=== PATIENT | female | born 1940 | race Caucasian/White ===

== ENCOUNTER 2019-11-25 14:26 | Observation (INO) | payer MEDICARE, OTHER, SELFPAY ==
[2019-11-25] VITALS (8 sets, daily range): BP systolic 95–145; BP diastolic 60–115; PULSE 115–131; RESP 14–18; TEMP 36.6–37.1; O2SAT 96–98; BMI 31.7
--- NOTE | 2019-11-25 | CT_ITS ---
EXAMINATION: CT ANGIOGRAM CHEST WITH AND WITHOUT CONTRAST (CT PULMONARY ANGIOGRAM FOR PE) CLINICAL INFORMATION: Assess for PE. COMPARISON: By report, a previous study was performed 10/30/2019 with no evidence of pulmonary embolus. Those images are not available for comparison. TECHNIQUE: Prior to contrast administration, noncontrast localization images were obtained. Subsequently, multidetector volumetric imaging was performed from the thoracic inlet to below the diaphragms following the administration of 65 mL Omnipaque 350 intravenous contrast. No contrast reaction reported. Sagittal, coronal, and MIP oblique sagittal reformatted images were obtained on the CT workstation, uploaded to PACS, and reviewed. This CT examination was performed using dose optimization techniques as appropriate, variously including the following: *Automated exposure control. *Adjustment of mA and/or kV according to patient size (this includes techniques or standardized protocols for targeted exams where dose is matched to indication/reason for exam; i.e. extremities or head). *Use of iterative reconstruction technique. Total exam dose-length product 493 mGy-cm. 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 Rotation to the left. Arthritic changes around both shoulders. Some hazy density in the left lower chest. QUALITY OF STUDY/CONTRAST BOLUS: Satisfactory. PULMONARY ARTERIES: No pulmonary embolus demonstrated. THORACIC AORTA: There is no thoracic aortic aneurysm. There is atherosclerosis. There is moderate coronary artery calcification. There is no pericardial fluid or thickening. The main pulmonary artery is normal caliber. LUNG: No suspicious mass. There is motion artifact which limits fine detail. There are hazy and reticular juxtapleural opacities in the dependent aspect of each lung without definite honeycomb formation. PLEURA: There is some apical thickening which is likely post inflammatory. MEDIASTINUM: There are no enlarged mediastinal or hilar lymph nodes. No suspicious abnormality of the esophagus. No evidence of septal bowing or right heart strain. CHEST WALL/AXILLA: No axillary or internal mammary lymphadenopathy. OSSEOUS STRUCTURES: Severe arthritic changes involving the glenohumeral joints. Soft tissue calcifications or ossifications. Hemangioma in the lower thoracic spine on the right. UPPER ABDOMEN: Nonspecific low attenuating lesion in the left lobe of the liver measures 1.4 cm. The visualized portion of the right kidney is smaller than the left. This could represent atrophy. Calcification in the region of the left renal artery. Calcified splenic granulomata. There is some reflux into the IVC and central portion of the hepatic veins. IMPRESSION: No pulmonary embolus demonstrated. Nonspecific bilateral dependent lung density could represent some atelectasis or fibrosis. VTE: Negative.
--- NOTE | 2019-11-25 | XR_ITS ---
EXAMINATION: XR CHEST CLINICAL INFORMATION: Tachycardia. COMPARISON: CTA chest 10/30/2019 TECHNIQUE: Frontal view of the chest was obtained. FINDINGS: Cardiomediastinal silhouette is upper limits of normal in size. Blunting of the left costophrenic sulcus. No dense consolidation. No pneumothorax. Severe degenerative changes in both shoulders. IMPRESSION: Blunting left costophrenic sulcus could represent a layering effusion. A full inspiration PA and lateral chest radiograph may help to clarify
--- NOTE | 2019-11-25 14:49 | ED.ARRPALP ---
HPI - Arrhythmia/Palpitations General Chief Complaint: Arrhythmia/Palpitations Stated Complaint: SUDDEN ONSET FAST HEART RATE Time Seen by Provider: 11/25/19 14:38 Source: patient Mode of arrival: ambulatory Limitations: no limitations History of Present Illness HPI narrative: Related Data Allergies Allergy/AdvReac Type Severity Reaction Status Date / Time Cdqggou-Geq-Fhl Reductase Allergy Unknown PSEUDO Verified 11/25/19 14:50 Inhibitor ARHTITIS,ENZYMES [[id number] REDUCTASE INHIBITOR] ibuprofen [From ADVIL] AdvReac Unknown AGITATED Verified 11/25/19 14:50 statins Allergy Unknown elevated Uncoded 03/30/16 00:00 liver enzymes, joint aches Review of Systems Review of Systems: REVIEW OF SYSTEMS: Pertinent positives and negatives are stated above in the history. GEN: no fevers, chills, fatigue HEENT: no nasal congestion, sore throat, ear pain NEURO: no headache, dizziness, focal weakness PULM: no cough, shortness of breath CV: no chest pain, palpitations, LE edema ABD: no abdominal pain, nausea, vomiting, diarrhea : no dysuria, urgency, frequency SKIN: no rash ROS otherwise negative x 10 PMFSH Past Medical History Medical History Anemia Hyperlipidemia Hypertension Tachycardia Surgical History Hx of arthroscopic knee surgery Total knee replacement status Social History Social History Alcohol intake: never Smoking Status: Former smoker Use of substances other than those prescribed or required for medical reasons: No Advance Directives: No Advance Directives Information Provided: Yes Physical Exam Vital Signs and I&O and Narrative: Vital Signs and I&O: Vital Signs Temp 98.7 F 11/25/19 16:02 Pulse 119 H 11/25/19 16:02 Resp 15 11/25/19 16:02 BP 111/81 11/25/19 16:02 Pulse Ox 97 11/25/19 16:02 Intake & Output 11/24/19 11/25/19 11/25/19 18:59 06:59 18:59 Weight 86.581 kg Body Mass Index 31.7 VITAL SIGNS: Reviewed. GENERAL: Well developed, well nourished, in no acute distress. HEAD: Normocephalic/atraumatic, Posterior oropharynx was without edema, erythema or exudate. EYES: PERRLA, EOMI intact without pain, no nystagmus/pallor/icterus noted EARS: Ext canals without abnormality, TMs non-bulging and non-erythematous NOSE: Nares patent bilateral OROPHARYNX: no oral lesions noted, posterior pharynx clear and non-erythematous without noted tonsillar enlargement/erythema/exudates NECK: Supple, no adenopathy LUNGS: Normal breath sounds. No adventitious sounds or accessory muscle use. CARDIOVASCULAR: Regular rate tachycardia without noted murmurs, no JVD or lower extremity edema. ABDOMEN: Soft, non-tender, non-distended with bowel sounds. No rigidity. No guarding. No palpable masses or hernias noted MUSCULOSKELETAL: No tenderness, deformities, or effusions noted on gross inspection. EXTREMITIES: No cyanosis, clubbing or edema. SKIN: Inspection of the skin reveals no rashes, ulcerations, jaundice, pallor, or petechiae NEUROLOGIC: Alert and oriented x 3. Strength and sensation to light touch were grossly intact x 4. Course Course Course Narrative: patient received 5 mg of Lopressor and 1 L of IV fluids running heart rate is still 119 patient asymptomatic at this time will evaluate her labs. Patient signed out to Dr. Butts [facility] - Arrhythmia/Palpitations Lab Data Result diagrams: 11/25/19 15:55 Labs: Lab Results 11/25/19 Range/Units 15:55 WBC 3.2 L (4.8-10.8) X10*3/uL RBC 3.22 L (4.20-5.50) X10*6/uL Hgb 9.5 L (12.0-16.0) g/dl Hct 29.5 L (37-47) % MCV 91.6 (80-98) fL MCH 29.5 (27.0-33.0) pg MCHC 32.2 (31.0-35.0) g/dl RDW 14.3 (11.0-16.0) % Plt Count 167 (160-400) X10*3/uL MPV 9.5 (9.4-12.3) fL Immature Gran % (Auto) 0.0 (0.0-0.4) % Neut % (Auto) 57.1 (45-73) % Lymph % (Auto) 26.9 (20-40) % [place] % (Auto) 10.8 (2-11) % Eos % (Auto) 4.9 H (0-4) % Baso % (Auto) 0.3 (0-2) % Neut # (Auto) 1.9 L (2.0-8.3) X10*3/uL Lymph # (Auto) 0.9 L (1.2-4.9) X10*3/uL [place] # (Auto) 0.4 (0.1-1.2) X10*3/uL Eos # (Auto) 0.2 (0.0-0.4) X10*3/uL Baso # (Auto) 0.0 (0.0-0.2) X10*3/uL Abs Immat Gran (auto) 0.00 (0.00-0.03) X10*3/uL Absolute Nucleated RBC 0.000 (0.0-0.012) X10*3/uL Nucleated RBC % (auto) 0.0 (0.0-0.2) /100WBC ECG Data Attestation: I personally reviewed and interpreted this ECG as follows: ECG interpretation date: 11/25/19 ECG interpretation time: 14:32 Prior ECG tracings: available for review Ischemic changes: non-specific ST-T wave changes Interpretation: Heart rate 132 sinus tachycardia normal axis nonspecific ST T wave changes diagnosis supraventricular tachycardia
[2019-11-25] MEDS: Metoprolol Tartrate 5 MG/5 ML VIAL IVPUSH (14:51)
--- NOTE | 2019-11-25 15:23 | ECG_ITS ---
Test Reason : TACHYCARDIA Blood Pressure : / mmHG Vent. Rate : 132 BPM Atrial Rate : 122 BPM P-R Int : 000 ms QRS Dur : 074 ms QT Int : 314 ms P-R-T Axes : 000 -04 066 degrees QTc Int : 465 ms Supraventricular tachycardia Nonspecific ST and T wave abnormality Abnormal ECG When compared with ECG of 31-OCT-2019 07:40, Vent. rate has increased BY [address] now depressed in Inferior leads ST now depressed in Anterolateral leads Nonspecific T wave abnormality, worse in Inferior leads Nonspecific T wave abnormality now evident in Lateral leads Referred By: James Gold Electronically Signed By:TIFFANY MCCONNELL
[2019-11-25] MEDS: 0.9 % Sodium Chloride 1,000 ML 999 ML IVCONT ×2 (15:45→18:02)
[2019-11-25 16:01] LABS: MANUAL DIFF FLAG NO
[2019-11-25 16:02] LABS: Basophils Percent Auto 0.3 % (0-2); Eosinophils Absolute Auto 0.2 X10*3/uL (0.0-0.4); Eosinophils Percent Auto 4.9 % (0-4); Hematocrit 29.5 % (37-47); Hemoglobin 9.5 g/dl (12.0-16.0); Lymphocytes Absolute Auto 0.9 X10*3/uL (1.2-4.9); Lymphocytes Percent Auto 26.9 % (20-40); Mean Corpuscular HGB Conc 32.2 g/dl (31.0-35.0); Mean Corpuscular Hemoglobin 29.5 pg (27.0-33.0); Mean Corpuscular Volume 91.6 fL (80-98); Mean Platelet Volume 9.5 fL (9.4-12.3); Monocytes Absolute Auto 0.4 X10*3/uL (0.1-1.2); Monocytes Percent Auto 10.8 % (2-11); Neutrophils Absolute Auto 1.9 X10*3/uL (2.0-8.3); Neutrophils Percent Auto 57.1 % (45-73); Platelet Count 167 X10*3/uL (160-400); Red Blood Count 3.22 X10*6/uL (4.20-5.50); Red Cell Distribution Width 14.3 % (11.0-16.0); White Blood Count 3.2 X10*3/uL (4.8-10.8)
[2019-11-25 16:31] LABS: Anion Gap 13 (12-20); Blood Urea Nitrogen 9 mg/dL (9-16); Calcium 8.6 mg/dL (8.4-10.2); Carbon Dioxide 20 mmol/L (22-29); Chloride 108 mmol/L (96-108); Creatinine Clr Calc Pharmacy 75.2; Estimated Glomerular Filt Rate > 60; Glucose Random 101 mg/dL (60-115); Potassium 4.2 mmol/l (3.3-5.1); Sodium 137 mmol/L (135-145)
[2019-11-25 16:56] LABS: Thyroid Stimulating Hormone 0.67 mIU/mL (0.32-4.0)
[2019-11-25 18:31] LABS: Glucose Urine UA NEG (NEG); Leukocyte Esterase Urine 1+ (NEG); Nitrite Urine NEG (NEG); Specific Gravity - Urine <= 1.005 (1.005-1.025); Urine Blood TRACE (NEG); Urine Ketones NEG (NEG); Urine Protein NEG (NEG-TRACE)
[2019-11-25 18:33] LABS: Appearance Urine CLEAR; Color Urine YELLOW
[2019-11-25 18:43] LABS: Bacteria Urine TRACE /LPF; RBC Urine 0-2 /HPF (0); Squamous Epithelial Cell Urine 1+ /LPF
[2019-11-25 19:36] LABS: Hemoglobin 9.7 g/dl (12.0-16.0); Imm Gran Abs Auto 0.01 X10*3/uL (0.00-0.03); Imm Gran Pct Auto 0.3 % (0.0-0.4); MANUAL DIFF FLAG SCAN; PLT CLUMP 1; Red Cell Distribution Width 14.4 % (11.0-16.0); SCAN SMEAR FLAG 1
[2019-11-25 19:38] LABS: Basophils Percent Auto 0.6 % (0-2); Eosinophils Absolute Auto 0.2 X10*3/uL (0.0-0.4); Eosinophils Percent Auto 4.8 % (0-4); Hematocrit 29.4 % (37-47); Lymphocytes Absolute Auto 1.1 X10*3/uL (1.2-4.9); Lymphocytes Percent Auto 29.7 % (20-40); Mean Corpuscular Hemoglobin 30.3 pg (27.0-33.0); Mean Corpuscular Volume 91.9 fL (80-98); Mean Platelet Volume 9.9 fL (9.4-12.3); Monocytes Absolute Auto 0.3 X10*3/uL (0.1-1.2); Monocytes Percent Auto 9.2 % (2-11); Neutrophils Percent Auto 55.4 % (45-73); Platelet Count 174 X10*3/uL (160-400); White Blood Count 3.6 X10*3/uL (4.8-10.8)
[2019-11-25 19:43] LABS: OBS Int Ctl Valid YES; OBS1 NEG (NEG)
[2019-11-25 19:52] LABS: SLIDE REVIEW VERIFIED
[2019-11-25 19:56] LABS: D Dimer 460 NG/ML
[2019-11-25 19:57] LABS: Troponin-I High Sensitivity 60.2 ng/L (<3.5-17.0)
[2019-11-25] MEDS: iohexoL 350 MG/ML 100 ML INFUS..BTL IV (21:58)
[2019-11-26] VITALS (9 sets, daily range): BP systolic 94–117; BP diastolic 51–68; PULSE 50–119; RESP 12–18; TEMP 35.8–37.1; O2SAT 96–99
--- NOTE | 2019-11-26 00:22 | P.HPIM_ITS ---
History of Present Illness Date of Service: 11/26/19 Chief Complaint: tachycardia 79 y/o female with known PMHx of sinus tachycardia and NSTEMI due to demand ischemia in the past who presented from home due to tachycardia. Per history provided by the patient, this afternoon started feeling like her heart was raci ng and has been ongoing since then, denies any chest pain, SOB, nausea or vomiting. Last admission was 1 month ago where patient was treated for sinus tachycardia, Hypotension likely due to dehydration and UTI. Patient had extensive cardiac work up which was negative and was discharged per cardio recommendations on atenolol 25 mg BID. On presentation to the ED EKG shows sinus tachycardia, vitals shows a HR of 120's, BP borderline in the low range. Patient was treated by ED with cardizem and IV lopressor with no improvement on HR. Hgb of 9.7. Troponin of 60.2 which is lower than on previous admission. Patient was seen and evaluated at the bedside, laying down in bed in no acute distress. ROS as above otherwise negative. Physical exam positive for tachycardiac otherwise negative. Past Medical History: Past medical history Hypertension Dyslipidemia Tachycardia Denies history of AFib or CAD Past surgical history Tonsillectomy Left knee replacement Left knee arthroscopic Social history Lives alone. Reports she stop smoking ?many years ago.? Reports social alcohol use which he stopped about 1.5 years ago. No illicit substance. Review of Systems Cardiovascular: Cardiovascular: Reports rapid heart rate [facility] Medical History Anemia Hyperlipidemia Hypertension Tachycardia Functional capacity: independent ambulation Family history: reviewed and not pertinent Surgical History Hx of arthroscopic knee surgery Total knee replacement status Social History Alcohol intake: never Smoking Status: Former smoker Use of substances other than those prescribed or required for medical reasons: No Advance Directives: No Advance Directives Information Provided: Yes Meds Allergies Allergy/AdvReac Type Severity Reaction Status Date / Time Bhufzef-Err-Yav Reductase Allergy Unknown PSEUDO Verified 11/25/19 14:50 Inhibitor ARHTITIS,ENZYMES [[id number] REDUCTASE INHIBITOR] ibuprofen [From ADVIL] AdvReac Unknown AGITATED Verified 11/25/19 14:50 statins Allergy Unknown elevated Uncoded 03/30/16 00:00 liver enzymes, joint aches Home Medications Medication Instructions Recorded Confirmed Type alendronate 1 tab PO QWEEK 11/25/19 11/25/19 History atenolol 1 tab PO BID 11/25/19 11/25/19 History ezetimibe 1 tab PO DAILY 11/25/19 11/25/19 History fluticasone propionate 2 spray INTRANASAL DAILY 11/25/19 11/25/19 History gemfibrozil 1 tab PO BID 11/25/19 11/25/19 History oxybutynin chloride 10 mg PO DAILY 11/25/19 11/25/19 History Physical Exam Vital Signs and Narrative: Vital Signs: Last Vital Signs Temp 98.1 F 11/25/19 22:00 Pulse 121 H 11/25/19 22:00 Resp 17 11/25/19 22:00 BP 101/71 11/25/19 22:00 Pulse Ox 97 11/25/19 22:00 Body Mass Index 31.7 Const: General: cooperative, healthy appearing and comfortable Orientation/consciousness: patient oriented x3 HENMT: Head: Yes normal to inspection and Yes No palpable skull fracture present Eyes: General: appearance normal, both eyes and all related structures Neck: Yes normal visual inspection Chest: Chest palpation & inspection: normal inspection of the chest Resp: Effort & Inspection: normal respiratory effort Cardio: Jugular venous distension: no JVD Rate: regular rate Rhythm: regular rhythm Heart sounds: S1 normal heart sound present and S2 normal heart sound present GI: Inspection: Yes normal to inspection Skin: General skin exam: no rashes or lesions noted Neuro: General: patient oriented x3 Results Labs Labs: Laboratory Tests 11/25/19 11/25/19 11/25/19 15:55 15:55 18:11 WBC 3.2 L RBC 3.22 L Hgb 9.5 L Hct 29.5 L MCV 91.6 MCH 29.5 MCHC 32.2 RDW 14.3 Plt Count 167 MPV 9.5 Immature Gran % (Auto) 0.0 Neut % (Auto) 57.1 Lymph % (Auto) 26.9 [place] % (Auto) 10.8 Eos % (Auto) 4.9 H Baso % (Auto) 0.3 Neut # (Auto) 1.9 L Lymph # (Auto) 0.9 L [place] # (Auto) 0.4 Eos # (Auto) 0.2 Baso # (Auto) 0.0 Abs Immat Gran (auto) 0.00 Absolute Nucleated RBC 0.000 Nucleated RBC % (auto) 0.0 Smear Tech's Comments D-Dimer Sodium 137 Potassium 4.2 Chloride 108 Carbon Dioxide 20 L Anion Gap 13 BUN 9 Creatinine 0.68 Estim Creat Clear Calc 75.2 Estimated GFR > 60 Random Glucose 101 Calcium 8.6 Troponin I High Sens TSH 0.67 Urine Color YELLOW Urine Appearance CLEAR Urine pH 7.0 Ur Specific [place] <= 1.005 Urine Protein NEG Urine Glucose (UA) NEG Urine Ketones NEG Urine Blood TRACE Urine Nitrite NEG Ur Leukocyte Esterase 1+ H Urine RBC 0-2 Urine WBC 5-9 H Ur Squamous Epith Cells 1+ Urine Bacteria TRACE Stool Occult Blood 11/25/19 11/25/19 11/25/19 19:18 19:18 19:18 WBC RBC Hgb Hct MCV MCH MCHC RDW Plt Count MPV Immature Gran % (Auto) Neut % (Auto) Lymph % (Auto) [place] % (Auto) Eos % (Auto) Baso % (Auto) Neut # (Auto) Lymph # (Auto) [place] # (Auto) Eos # (Auto) Baso # (Auto) Abs Immat Gran (auto) Absolute Nucleated RBC Nucleated RBC % (auto) Smear Tech's Comments D-Dimer 460 Sodium Potassium Chloride Carbon Dioxide Anion Gap BUN Creatinine Estim Creat Clear Calc Estimated GFR Random Glucose Calcium Troponin I High Sens 60.2 H TSH Urine Color Urine Appearance Urine pH Ur Specific [place] Urine Protein Urine Glucose (UA) Urine Ketones Urine Blood Urine Nitrite Ur Leukocyte Esterase Urine RBC Urine WBC Ur Squamous Epith Cells Urine Bacteria Stool Occult Blood NEG 11/25/19 19:18 WBC 3.6 L RBC 3.20 L Hgb 9.7 L Hct 29.4 L MCV 91.9 MCH 30.3 MCHC 33.0 RDW 14.4 Plt Count 174 MPV 9.9 Immature Gran % (Auto) 0.3 Neut % (Auto) 55.4 Lymph % (Auto) 29.7 [place] % (Auto) 9.2 Eos % (Auto) 4.8 H Baso % (Auto) 0.6 Neut # (Auto) 2.0 Lymph # (Auto) 1.1 L [place] # (Auto) 0.3 Eos # (Auto) 0.2 Baso # (Auto) 0.0 Abs Immat Gran (auto) 0.01 Absolute Nucleated RBC 0.000 Nucleated RBC % (auto) 0.0 Smear Tech's Comments VERIFIED D-Dimer Sodium Potassium Chloride Carbon Dioxide Anion Gap BUN Creatinine Estim Creat Clear Calc Estimated GFR Random Glucose Calcium Troponin I High Sens TSH Urine Color Urine Appearance Urine pH Ur Specific [place] Urine Protein Urine Glucose (UA) Urine Ketones Urine Blood Urine Nitrite Ur Leukocyte Esterase Urine RBC Urine WBC Ur Squamous Epith Cells Urine Bacteria Stool Occult Blood Assessment and Plan (1) Sinus tachycardia: Status: Acute HR now in 120's. 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
--- NOTE | 2019-11-26 00:23 | PC.NURSE ---
Called [facility] for report to be given. Awaiting for call back for the report.
[2019-11-26] MEDS: Metoprolol Tartrate 5 MG/5 ML VIAL 2.5 MG IVPUSH (00:35)
--- NOTE | 2019-11-26 00:51 | PC.NURSE ---
Report given to [facility], RN. Pt is ready for transfer.
[2019-11-26] MEDS: Flu Vacc QS2020-21(6mos up)/PF 0.5 ML SYRINGE IM (04:30)
[2019-11-26] MEDS: Enoxaparin Sodium 40 MG/0.4 ML SYRINGE SUBCUT (04:30)
--- NOTE | 2019-11-26 06:52 | PM.EVENT ---
Event Note Event Note: Given the fact that HR normalized which now is 57, atenolol dose decreased back to 25 mg BID. Follow up Cardio recs
[2019-11-26] MEDS: gemfibroziL 600 MG TABLET PO (08:41)
[2019-11-26] MEDS: 0.9 % Sodium Chloride Flush 3 ML SYRINGE 2 ML IVFLUSH (08:41)
[2019-11-26] MEDS: Ezetimibe 10 MG TABLET PO (08:41)
--- NOTE | 2019-11-26 09:35 | MHC.CM.PN ---
IMM 11/26/19 FEMALE 79 DX Tachycardia. Pt lives alone with assist from family. Recent admit for this diagnosis. Pt had LTKA 10/02/19. She was going to out Pt therapy. DP resume out Pt Therapy family will transport. CM will follow for change in DP needs.
--- NOTE | 2019-11-26 10:09 | P.CONCA_ITS ---
History of Present Illness History of Present Illness Date of Consult: November 26, 2019 Requesting physician: Ariella Shelby Chief complaint: SUDDEN ONSET FAST HEART RATE Narrative: This is a cardiology consultation regarding tachycardia. Patient states that she was doing some shopping all of a sudden, she started feeling as though her heart was racing. She has had palpitations for more than 10 years. She was apparently told to have a paroxysmal tachycardia about a decade ago. Subsequently, intermittent episodes but in the last few weeks she has had more than the usual frequency and intensity. Few weeks ago, it appears that she was admitted for similar reasons. This time, she was shopping and then again noticed palpitations which would not go way which led to ER presentation. She apparently got some Cardizem and Lopressor but then things resolved, but she was admitted for further care. Otherwise, she does not have any anginal-type symptoms or shortness of breath or any other cardiac complaints at this time. No prior history of any coronary disease or myocardial infarction. No history of any cardiomyopathy or any other cardiac concerns apart from the paroxysmal tachycardia she was told about. Review of Systems Review of Systems: Yes all other systems are reviewed and are negative Cardiovascular: Cardiovascular: Reports palpitations Endocrine: Endocrine: Reports palpitations PMFSH Past Medical History Medical History Anemia Hyperlipidemia Hypertension Tachycardia Functional capacity: independent ambulation Family History Family History (Updated 11/26/19 @ 10:15 by Wai Purcell MD) Other CAD (coronary artery disease) Family history: reviewed and not pertinent Surgical History Surgical History Hx of arthroscopic knee surgery Total knee replacement status Social History Social History Alcohol intake: never Smoking Status: Former smoker Smoked in Last 30 Days: No Patient Interested in Nicotine Replacement: No Use of substances other than those prescribed or required for medical reasons: No Advance Directives: No Advance Directives Information Provided: Yes service: No Current occupational status: retired Meds Allergies Allergy/AdvReac Type Severity Reaction Status Date / Time Cyzvpvb-Vef-Cka Reductase Allergy Unknown PSEUDO Verified 11/25/19 14:50 Inhibitor ARHTITIS,ENZYMES [JBPTGVG-ORD-CJA REDUCTASE INHIBITOR] ibuprofen [From ADVIL] AdvReac Unknown AGITATED Verified 11/25/19 14:50 statins Allergy Unknown elevated Uncoded 03/30/16 00:00 liver enzymes, joint aches Home Medications Medication Instructions Recorded Confirmed Type alendronate 1 tab PO QWEEK 11/25/19 11/25/19 History atenolol 1 tab PO BID 11/25/19 11/25/19 History ezetimibe 1 tab PO DAILY 11/25/19 11/25/19 History fluticasone propionate 2 spray INTRANASAL DAILY 11/25/19 11/25/19 History gemfibrozil 1 tab PO BID 11/25/19 11/25/19 History oxybutynin chloride 10 mg PO DAILY 11/25/19 11/25/19 History Physical Exam Vital Signs and I&O and Narrative: Vital Signs and I&O: Vital Signs Temp 98.0 F 11/26/19 07:47 Pulse 51 11/26/19 08:42 Resp 16 11/26/19 07:47 BP 94/58 L 11/26/19 08:42 Pulse Ox 97 11/26/19 07:47 Intake & Output 11/25/19 11/26/19 11/26/19 18:59 06:59 18:59 Intake Total 999 Balance 999 Weight 190 lb 14.052 oz Intake: Intake, IV Amoun t 999 0.9 % Sodium C hloride 1,000 ml 999 @ 999 mls/hr I VCONT .Q1H1M PENDING S[facility] TO [facility] Rx#:[id number] Other: Number of Unmeas ured Voids 1 Urine Bathroom Urine Color Pale Yellow Body Mass Index 31.7 Const: General: cooperative, comfortable and no acute distress Orientation/consciousness: patient oriented x3 HENMT: Other: Unremarkable Neck: Neck: Yes normal visual inspection Chest: Chest palpation & inspection: normal inspection of the chest Resp: Auscultation: clear to auscultation bilaterally, no crackles and no wheezes Cardio: Jugular venous distension: no JVD Palpation: normal PMI Heart sounds: S1 normal heart sound present, S2 normal heart sound present, no gallops, no murmurs and no rubs GI: Palpation (GI): Soft to palpation Back/Spine/Pelvis: Other: unremarkable Skin: General skin exam: no rashes or lesions noted Neuro: General: patient oriented x3 Extrem: General: Yes no clubbing, cyanosis or edema Psych: Mental Status: mental status grossly normal Results Labs and Meds Result diagrams: 11/25/19 19:18 11/25/19 15:55 Lab results: Laboratory Results - last 24 hr 11/25/19 11/25/19 11/25/19 15:55 15:55 18:11 WBC 3.2 L RBC 3.22 L Hgb 9.5 L Hct 29.5 L MCV 91.6 MCH 29.5 MCHC 32.2 RDW 14.3 Plt Count 167 MPV 9.5 Immature Gran % (Auto) 0.0 Neut % (Auto) 57.1 Lymph % (Auto) 26.9 [place] % (Auto) 10.8 Eos % (Auto) 4.9 H Baso % (Auto) 0.3 Neut # (Auto) 1.9 L Lymph # (Auto) 0.9 L [place] # (Auto) 0.4 Eos # (Auto) 0.2 Baso # (Auto) 0.0 Abs Immat Gran (auto) 0.00 Absolute Nucleated RBC 0.000 Nucleated RBC % (auto) 0.0 Smear Tech's Comments D-Dimer Sodium 137 Potassium 4.2 Chloride 108 Carbon Dioxide 20 L Anion Gap 13 BUN 9 Creatinine 0.68 Estim Creat Clear Calc 75.2 Estimated GFR > 60 Random Glucose 101 Calcium 8.6 Troponin I High Sens TSH 0.67 Urine Color YELLOW Urine Appearance CLEAR Urine pH 7.0 Ur Specific [place] <= 1.005 Urine Protein NEG Urine Glucose (UA) NEG Urine Ketones NEG Urine Blood TRACE Urine Nitrite NEG Ur Leukocyte Esterase 1+ H Urine RBC 0-2 Urine WBC 5-9 H Ur Squamous Epith Cells 1+ Urine Bacteria TRACE Stool Occult Blood 11/25/19 11/25/19 11/25/19 19:18 19:18 19:18 WBC RBC Hgb Hct MCV MCH MCHC RDW Plt Count MPV Immature Gran % (Auto) Neut % (Auto) Lymph % (Auto) [place] % (Auto) Eos % (Auto) Baso % (Auto) Neut # (Auto) Lymph # (Auto) [place] # (Auto) Eos # (Auto) Baso # (Auto) Abs Immat Gran (auto) Absolute Nucleated RBC Nucleated RBC % (auto) Smear Tech's Comments D-Dimer 460 Sodium Potassium Chloride Carbon Dioxide Anion Gap BUN Creatinine Estim Creat Clear Calc Estimated GFR Random Glucose Calcium Troponin I High Sens 60.2 H TSH Urine Color Urine Appearance Urine pH Ur Specific [place] Urine Protein Urine Glucose (UA) Urine Ketones Urine Blood Urine Nitrite Ur Leukocyte Esterase Urine RBC Urine WBC Ur Squamous Epith Cells Urine Bacteria Stool Occult Blood NEG 11/25/19 19:18 WBC 3.6 L RBC 3.20 L Hgb 9.7 L Hct 29.4 L MCV 91.9 MCH 30.3 MCHC 33.0 RDW 14.4 Plt Count 174 MPV 9.9 Immature Gran % (Auto) 0.3 Neut % (Auto) 55.4 Lymph % (Auto) 29.7 [place] % (Auto) 9.2 Eos % (Auto) 4.8 H Baso % (Auto) 0.6 Neut # (Auto) 2.0 Lymph # (Auto) 1.1 L [place] # (Auto) 0.3 Eos # (Auto) 0.2 Baso # (Auto) 0.0 Abs Immat Gran (auto) 0.01 Absolute Nucleated RBC 0.000 Nucleated RBC % (auto) 0.0 Smear Tech's Comments VERIFIED D-Dimer Sodium Potassium Chloride Carbon Dioxide Anion Gap BUN Creatinine Estim Creat Clear Calc Estimated GFR Random Glucose Calcium Troponin I High Sens TSH Urine Color Urine Appearance Urine pH Ur Specific [place] Urine Protein Urine Glucose (UA) Urine Ketones Urine Blood Urine Nitrite Ur Leukocyte Esterase Urine RBC Urine WBC Ur Squamous Epith Cells Urine Bacteria Stool Occult Blood Cardiology Testing Echo: report reviewed EKG Interpretation Telemetry: sinus rhythm EKG Comments: EKG was reviewed by me. This shows a narrow complex tachycardia at 132/Min. There are retrograde P waves which are suggestive of a supraventricular tachycardia. Assessment and Plan (1) SVT (supraventricular tachycardia): Status: Acute (2) Heart palpitations: Status: Acute (3) NSTEMI (non-ST elevated myocardial infarction): Status: Acute (4) Hypertension: Status: Acute EKG suggestive of narrow complex tachycardia/ SVT. Currently, she is in sinus bradycardia. Continue beta-blockers. Due to low blood pressure as well a s resting sinus bradycardia, no room to increase her medications. Will check with Electrophysiology regarding candidacy for ablation. Otherwise, troponins are elevated due to the tachycardia and I do not believe that this is a true NSTEMI. Very likely to be demand related / type 2 NSTEMI. She will need a stress test that can be performed as an outpatient. Will follow up with you.
[2019-11-26] MEDS: Fluticasone Propionate Nasal 16 GM SPRAY 2 SPRAY NOSTRIL-B (11:17)
--- NOTE | 2019-11-26 13:29 | MHC.CM.PN ---
DC home today. No services, family providing transport
--- NOTE | 2019-11-26 17:04 | P.DS_ITS ---
DS: Providers Provider Date of admission: 11/26/19 00:55 Primary care physician: Royer Botello MD Consults: 11/26/19 00:35 Consult to Cardiology [place]ine [place] [facility] [place] [facility] Reason for consultation: sinus tachycardia Has provider been notified: No DS: Diagnosis Discharge Diagnosis (1) SVT (supraventricular tachycardia): Status: Acute (2) Heart palpitations: Status: Acute (3) NSTEMI (non-ST elevated myocardial infarction): Status: Acute (4) Hypertension: Status: Acute DS: Summary Time Spent with Patient Time attestation: the patient was admitted to the hospital for evaluation of episode of palpitation. EKG reviewed by associate financial representative who believe she has another episode of narrow complex tachycardia,SVT. Palpitation resolved with her oral home medications. Blood pressure was noticed to be solved so we could not increase the dose at this point and kept on atenolol 25 mg twice daily. Elevated cardiac enzymes as a result of tachycardia as type 2 NSTEMI. To continue her home medications and to follow-up as outpatient with from and to arrange for outpatient stress test with Cardiology. Total time spent providing and/or coordinating discharge services: Physical Exam Vital Signs and I&O and Narrative: Vital Signs and I&O: Vital Signs Temp 98.0 F 11/26/19 15:35 Pulse 57 11/26/19 15:35 Resp 18 11/26/19 15:35 BP 117/60 11/26/19 15:35 Pulse Ox 99 11/26/19 15:35 Intake & Output 11/25/19 11/26/19 11/26/19 18:59 06:59 18:59 Intake Total 999 Output Total 400 / 400 Balance 999 -400 / -400 Urine Output (Aver age ml/kg/hr) 0.38 Weight 86.581 kg Intake: Intake, IV Amoun t 999 0.9 % Sodium C hloride 1,000 ml 999 @ 999 mls/hr I VCONT .Q1H1M [facility] Rx#:[id number] Output: Output, Urine Am ount 400 / 400 Other: Lunch % Eaten 75% Number of Unmeas ured Voids 1 Urine Bathroom Urine Color Pale Yellow Body Mass Index 31.7 Const: General: cooperative and comfortable Orientation/consciousness: oriented to person and oriented to place Neck: Neck: Yes normal visual inspection and Yes full ROM Cardio: Jugular venous distension: no JVD Heart sounds: S1 normal heart sound present and S2 normal heart sound present GI: Inspection: Yes normal to inspection Percussion: Yes normal to percussion Auscultation: normal bowel sounds Neuro: General: oriented to person, oriented to place and no focal motor deficits Extrem: General: Yes normal to inspection and Yes full ROM DS: Data Data Completed and Pending Labs on day of discharge: Labs from last 24 hours 11/25/19 11/25/19 11/25/19 19:18 19:18 19:18 WBC 3.6 L RBC 3.20 L Hgb 9.7 L Hct 29.4 L MCV 91.9 MCH 30.3 MCHC 33.0 RDW 14.4 Plt Count 174 MPV 9.9 Immature Gran % (Auto) 0.3 Neut % (Auto) 55.4 Lymph % (Auto) 29.7 [place] % (Auto) 9.2 Eos % (Auto) 4.8 H Baso % (Auto) 0.6 Neut # (Auto) 2.0 Lymph # (Auto) 1.1 L [place] # (Auto) 0.3 Eos # (Auto) 0.2 Baso # (Auto) 0.0 Abs Immat Gran (auto) 0.01 Absolute Nucleated RBC 0.000 Nucleated RBC % (auto) 0.0 Smear Tech's Comments VERIFIED D-Dimer Troponin I High Sens 60.2 H Urine Color Urine Appearance Urine pH Ur Specific [place] Urine Protein Urine Glucose (UA) Urine Ketones Urine Blood Urine Nitrite Ur Leukocyte Esterase Urine RBC Urine WBC Ur Squamous Epith Cells Urine Bacteria Stool Occult Blood NEG 11/25/19 11/25/19 19:18 18:11 WBC RBC Hgb Hct MCV MCH MCHC RDW Plt Count MPV Immature Gran % (Auto) Neut % (Auto) Lymph % (Auto) [place] % (Auto) Eos % (Auto) Baso % (Auto) Neut # (Auto) Lymph # (Auto) [place] # (Auto) Eos # (Auto) Baso # (Auto) Abs Immat Gran (auto) Absolute Nucleated RBC Nucleated RBC % (auto) Smear Tech's Comments D-Dimer 460 Troponin I High Sens Urine Color YELLOW Urine Appearance CLEAR Urine pH 7.0 Ur Specific [place] <= 1.005 Urine Protein NEG Urine Glucose (UA) NEG Urine Ketones NEG Urine Blood TRACE Urine Nitrite NEG Ur Leukocyte Esterase 1+ H Urine RBC 0-2 Urine WBC 5-9 H Ur Squamous Epith Cells 1+ Urine Bacteria TRACE Stool Occult Blood Preliminary micro results at discharge 11/25/19 18:34 Urine Culture - Preliminary Urine clean catch - Clean Catch Midstream No growth to date. Discharge Plan Discharge Anticipated Discharge Date/Time: 11/26/19 13:08 Patient Disposition: Home, Self-Care Referrals: Royer Botello MD [Primary Care Provider] - Discharge Medications: Continued alendronate 70 mg tablet 1 tab PO QWEEK RF: 0 atenolol 25 mg tablet 1 tab PO BID RF: 0 gemfibrozil 600 mg tablet 1 tab PO BID RF: 0 fluticasone propionate 50 mcg/actuation spray,suspension 2 spray intranasal DAILY RF: 0 ezetimibe 10 mg tablet 1 tab PO DAILY RF: 0 oxybutynin chloride 10 mg Tablet Extended Release 24hr 10 mg PO DAILY RF: 0 Discharge Orders: Discharge Order (Routine); Ordered 11/26/19 Ordered By: Sarath Rodriguez Diet: advance to your usual diet and low salt diet Activity on Discharge: As tolerated Visit Report Forms: Patient Portal Discharge page Care Plan Goals: Read below Health Concerns: Read below Plan of Treatment: you were admitted to the hospital for evaluation of palpitation of the heart. Found to what we call SVT supraventricular tachycardia . Evaluated by Cardiology who recommended to continue your current home medication and to follow-up outpatient with cardio hard metals hand engraver
== END 2019-11-26 17:00 | disposition home or self-care (01) ==
LOC: HO.ED 11-26 01:06 → HO.IMC 11-26 05:28
PROVIDERS: Internal Medicine; Admitting Provider Internal Medicine; Emergency Provider Emergency Medicine; PCP Internal Medicine; Visit Provider Student in an Organized Health Care Education/Training Program
DX: I47.1 Supraventricular tachycardia (principal); R00.2 Palpitations; I21.4 Non-ST elevation (NSTEMI) myocardial infarction; D64.9 Anemia, unspecified; I10 Essential (primary) hypertension; M81.0 Age-related osteoporosis without current pathological fracture; R32 Unspecified urinary incontinence; Z96.652 Presence of left artificial knee joint; Z87.891 Personal history of nicotine dependence; Z79.899 Other long term (current) drug therapy; Z23 Encounter for immunization
CPT/HCPCS: 36415; 71045; 71275; 80048; 81001; 82272; 84443; 84484; 85025; 85379; 87086; 90471; 90686; 93005; 93010; 96361; 96372; 96374; 96375; 99219; 99285; J1650

== ENCOUNTER → 2019-12-03 07:53 | Outpatient (REF) | payer MEDICARE, OTHER, SELFPAY ==
--- NOTE | 2019-12-03 | NM_ITS ---
Lexiscan Myocardial perfusion study Indication: Supraventricular tachycardia, assess for coronary artery disease and ischemia Technique: The patient was brought in for a Lexiscan perfusion study on 12/03/2019 and was injected 0.4 mg of Lexiscan intravenously. Within a minute of this injection 30 mCi of sestamibi was given intravenously. Images were obtained using the SPECT gamma camera interlaced with the gating device. Images were obtained in supine position. Resting perfusion study was performed on 12/04/2019. Patient was administered 30 mCi of sestamibi intravenously at rest. Images were then obtained in supine position. Total DLP 118mGy-cm. Images were processed with the software and compared side to side in short axis, horizontal long axis and vertical long axis views. Findings: Raw acquisition was reviewed. The stress perfusion study showed diminished tracer uptake along the distal part of inferior and inferolateral wall. However with CT attenuation correction, this resolves completely suggestive of diaphragmatic attenuation artifact. The gated study shows normal LV systolic function with calculated LVEF of > 70%. LV cavity is normal in size. The gated study shows normal wall thickening and contraction of segments. Resting study shows mildly decreased tracer uptake along the distal part of the inferolateral wall, but that seems to resolve completely with CT attenuation correction suggesting attenuation artifact. Gating at rest reveals normal wall motion with ejection fraction at 75%. The findings are consistent with inferolateral defect with reversible and fixed components but resolving completely with CT attenuation correction suggesting definite attenuation artifact. Impression: 1. Myocardial perfusion imaging study shows no clear evidence of any ischemia or infarction. Inferolateral defect with fixed and reversible components suspected to be from diaphragmatic artifact, based on resolution with CT attenuation correction. 2. Gated LVEF is > 70%. 3. Transient ischemic dilatation not present. EKG component of the test reported separately.
--- NOTE | 2019-12-03 08:00 | CA_ITS ---
Acquisition Time: 2019-12-03 08:01:13 Total Exercise Time: 00:02:00 Test Indications: Palpitations Medications: ATENOLOL SEE H Protocol: LEXISCAN Max HR: 093 BPM 65% of Pred: 143 BPM Max BP: 122/070 mmHG Max Work Load: 1.0 METS Pharmacological stress test using Lexiscan while sitting and kicking her legs. Tolerated well, Denies any anginal sx. EKG without any arrhythmias, Non-diagnostic for ischemia. Nuclear images to follow. Normotensive response to test. Test reviewed with Dr. Purcell Referred By: Peter Lewis Overread By: James Pena
== END ==
LOC: HO.CARD 07:53
PROVIDERS: PCP Internal Medicine; Visit Provider Internal Medicine Cardiovascular Disease
DX: I47.1 Supraventricular tachycardia (principal); I10 Essential (primary) hypertension; E78.5 Hyperlipidemia, unspecified; I25.2 Old myocardial infarction; Z79.899 Other long term (current) drug therapy
CPT/HCPCS: 78452; 93017; A9500; J0280; J2785

== ENCOUNTER → 2019-12-06 14:03 | Outpatient (BNVA) | payer MEDICARE, OTHER, SELFPAY | PROVIDERS: PCP Internal Medicine; Referring Provider Internal Medicine; Visit Provider Nurse Practitioner Family | DX: I47.1 Supraventricular tachycardia (principal); I10 Essential (primary) hypertension; Z79.899 Other long term (current) drug therapy; I25.2 Old myocardial infarction | CPT/HCPCS: 99214 ==

== ENCOUNTER 2019-12-13 01:57 | Inpatient (IN) | payer MEDICARE, OTHER, SELFPAY ==
[2019-12-13] VITALS (10 sets, daily range): BP systolic 105–150; BP diastolic 6–100; PULSE 48–127; RESP 16–20; TEMP 36.4–36.9; O2SAT 96–98; BMI 30.4
--- NOTE | 2019-12-13 02:03 | ECG_ITS ---
Test Reason : TACHYCARDIA Blood Pressure : / mmHG Vent. Rate : 128 BPM Atrial Rate : 037 BPM P-R Int : 000 ms QRS Dur : 122 ms QT Int : 310 ms P-R-T Axes : 000 -07 061 degrees QTc Int : 452 ms Possible Supraventricular tachycardia Possible aflutter RSR' or QR pattern in V1 suggests right ventricular conduction delay Nonspecific ST abnormality Abnormal ECG When compared with ECG of 25-NOV-2019 14:32, No significant changes seen Referred By: Jann Aranda Electronically Signed By:ORALIA BOYLE MD
--- NOTE | 2019-12-13 02:09 | ED.ARRPALP ---
HPI - Arrhythmia/Palpitations General Chief Complaint: Arrhythmia/Palpitations Stated Complaint: TACHYCARDIA Time Seen by Provider: 12/13/19 02:09 Source: patient Mode of arrival: ambulatory Limitations: no limitations History of Present Illness HPI narrative: This is a 79-year-old female with known history of SVT, NSTEMI, who presents with awakening with a sensation that she has tachycardia and checked her heart rate and found it to be in the 130s. This is happened 2 other times and patient has undergone a stress test and is scheduled to have an ablation on 12/24/2019. This tachycardia is not associated with any headache, dizziness, shortness of breath, chest pain, fevers, chills, GI symptoms, or symptoms. Related Data Home Medications Medication Instructions Recorded Confirmed alendronate 70 mg PO QWEEK 11/25/19 12/13/19 atenolol 25 mg PO BID 11/25/19 12/06/19 ezetimibe 10 mg PO DAILY 11/25/19 12/06/19 fluticasone propionate 2 spray INTRANASAL DAILY 11/25/19 12/06/19 gemfibrozil 600 mg PO BID 11/25/19 12/06/19 oxybutynin chloride 10 mg PO DAILY 11/25/19 12/06/19 aspirin 81 mg tablet,delayed 81 mg PO DAILY 12/06/19 12/06/19 release hydrocodone-acetaminophen 1 tab PO Q4H PRN 12/13/19 12/13/19 Allergies Allergy/AdvReac Type Severity Reaction Status Date / Time Bndjpvh-Brt-Jpw Reductase Allergy Unknown PSEUDO Verified 11/25/19 14:50 Inhibitor ARHTITIS,ENZYMES [BRAVPEH-VQY-RSW REDUCTASE INHIBITOR] ibuprofen [From ADVIL] AdvReac Unknown AGITATED Verified 11/25/19 14:50 Review of Systems Review of Systems: Pertinent positives and negatives as stated in HPI 10 point review of systems is otherwise negative. [facility] Past Medical History Source: nursing notes reviewed Medical History (Updated 12/13/19 @ 04:53 by Ariella Shelby MD) Anemia Heart palpitations Hyperlipidemia Hypertension NSTEMI (non-ST elevated myocardial infarction) Osteoporosis Sinus tachycardia SVT (supraventricular tachycardia) Tachycardia Urinary incontinence Surgical History Hx of arthroscopic knee surgery Total knee replacement status Family History Family History Other CAD (coronary artery disease) Social History Social History Alcohol intake: never Smoking Status: Never smoker Use of substances other than those prescribed or required for medical reasons: No Any prior treatment program specific to substance use: Yes Advance Directives: No service: No Current occupational status: retired Physical Exam Vital Signs: Vital Signs: Vital Signs Temp Pulse Resp BP Pulse Ox 12/13/19 04:00 63 20 116/64 12/13/19 02:35 123 H 16 112/83 97 12/13/19 02:29 126 H 124/97 H 12/13/19 02:10 98.4 F 127 H 16 148/100 H 96 Body Mass Index 30.4 VITAL SIGNS: Reviewed. GENERAL: Well developed, well nourished, in no acute distress. HEAD: Normocephalic/atraumatic, EYES: PERRLA, EOMI intact without pain, no nystagmus/pallor/icterus noted EARS: Ext canals without abnormality, TMs non-bulging and non-erythematous NOSE: Nares patent bilateral OROPHARYNX: no oral lesions noted, posterior pharynx clear and non-erythematous without noted tonsillar enlargement/erythema/exudates NECK: Supple, no adenopathy LUNGS: Normal breath sounds. No adventitious sounds or accessory muscle use. SpO2<96> CARDIOVASCULAR: Regular rate and rhythm , tachycardia, without noted murmurs, no JVD or lower extremity edema. ABDOMEN: Soft, non-tender, non-distended with bowel sounds. No rigidity. No guarding. No palpable masses or hernias noted MUSCULOSKELETAL: No tenderness, deformities, or effusions noted on gross inspection. EXTREMITIES: No cyanosis, clubbing or edema. SKIN: Inspection of the skin reveals no rashes, ulcerations, jaundice, pallor, or petechiae. NEUROLOGIC: Alert and oriented x 4. Strength and sensation to light touch were grossly intact x 4. Course Course Course Narrative: This is a 79-year-old female with history and clinical presentation of recurrent SVT and on review of prior records Lopressor had been used but when discussing with the patient see said it was unsuccessful and she ended up being admitted. Despite this discussion we will attempt initial Lopressor 5 mg as well as lab work and chest x-ray. On re-evaluation after 5 mg of Lopressor patient's blood pressure was noted to have softened up considerably without any appreciable change in heart rate. This case was discussed with Cardiology, Dr. Montejo, who recommends possible adenosine or amiodarone for rate control. On review of all investigations it is noted that patient's leukocytes have continue to trend down words but she has stable, chronic anemia. Chemistries are largely within normal limits and the noted high sensitivity troponin elevation is lower than prior and felt to be most consistent with demand ischemia. Chest x-ray is without acute findings. This case was discussed with Dr. Andrade, hospitalist, who has agreed for admission and will initiate amiodarone for rate control. MDM - Arrhythmia/Palpitations Lab Data Result diagrams: 12/13/19 02:27 12/13/19 02:27 Labs: Lab Results 12/13/19 12/13/19 12/13/19 Range/Units 02:27 02:27 02:27 WBC 2.9 L (4.8-10.8) X10*3/uL RBC 3.68 L (4.20-5.50) X10*6/uL Hgb 11.0 L (12.0-16.0) g/dl Hct 33.1 L (37-47) % MCV 89.9 (80-98) fL MCH 29.9 (27.0-33.0) pg MCHC 33.2 (31.0-35.0) g/dl RDW 14.0 (11.0-16.0) % Plt Count 161 (160-400) X10*3/uL MPV 10.1 (9.4-12.3) fL Immature Gran % (Auto) 0.0 (0.0-0.4) % Neut % (Auto) 43.8 L (45-73) % Lymph % (Auto) 37.4 (20-40) % [place] % (Auto) 13.6 H (2-11) % Eos % (Auto) 4.5 H (0-4) % Baso % (Auto) 0.7 (0-2) % Lymph # (Auto) 1.1 L (1.2-4.9) X10*3/uL [place] # (Auto) 0.4 (0.1-1.2) X10*3/uL Eos # (Auto) 0.1 (0.0-0.4) X10*3/uL Baso # (Auto) 0.0 (0.0-0.2) X10*3/uL Abs Immat Gran (auto) 0.00 (0.00-0.03) X10*3/uL Absolute Neuts (auto) 1.3 L (2.0-8.3) X10*3/uL Absolute Nucleated RBC 0.000 (0.0-0.012) X10*3/uL Nucleated RBC % (auto) 0.0 (0.0-0.2) /100WBC Sodium 138 (135-145) mmol/L Potassium 3.7 (3.3-5.1) mmol/l Chloride 109 H (96-108) mmol/L Carbon Dioxide 19 L (22-29) mmol/L Anion Gap 14 (12-20) BUN 11 (9-16) mg/dL Creatinine 0.75 (0.5-1.4) mg/dL Estim Creat Clear Calc 66.8 Estimated GFR > 60 Random Glucose 116 H (60-115) mg/dL Calcium 9.0 (8.4-10.2) mg/dL Total Bilirubin 0.4 (0.0-1.0) mg/dL AST 21 (5-31) U/L ALT 9 (0-31) U/L Alkaline Phosphatase 56 (39-117) U/L Troponin I High Sens 20.5 H D (<3.5-17.0) ng/L Total Protein 6.4 L (6.5-8.0) g/dL Albumin 4.2 (3.5-5.0) g/dL Lipase 91 H (8-78) U/L ECG Data Attestation: I personally reviewed and interpreted this ECG as follows: Prior ECG tracings: available for review ( 11/25/2019) Interpretation: wide QRS tachycardia, HR-128, no QTC prolongation Discharge Plan Discharge Clinical Impression: SVT (supraventricular tachycardia) Patient Disposition: Admitted As Inpatient
--- NOTE | 2019-12-13 02:10 | XR_ITS ---
EXAMINATION: XR CHEST CLINICAL INFORMATION: Tachycardia COMPARISON: 11/24/2018 TECHNIQUE: Frontal view of the chest was obtained. FINDINGS: The lungs are clear with no focal consolidation. No evidence of pneumothorax, pulmonary edema, or pleural effusions. The cardiomediastinal silhouette is unremarkable. No acute osseous findings. Degenerative changes are noted in the shoulders. XR/XR chest 1V IMPRESSION: No acute cardiopulmonary findings.
[2019-12-13] MEDS: Metoprolol Tartrate 5 MG/5 ML VIAL IVPUSH (02:29)
[2019-12-13 02:32] LABS: MANUAL DIFF FLAG NO
[2019-12-13 02:33] LABS: Basophils Percent Auto 0.7 % (0-2); Eosinophils Absolute Auto 0.1 X10*3/uL (0.0-0.4); Eosinophils Percent Auto 4.5 % (0-4); Hematocrit 33.1 % (37-47); Lymphocytes Absolute Auto 1.1 X10*3/uL (1.2-4.9); Lymphocytes Percent Auto 37.4 % (20-40); Mean Corpuscular HGB Conc 33.2 g/dl (31.0-35.0); Mean Corpuscular Hemoglobin 29.9 pg (27.0-33.0); Mean Corpuscular Volume 89.9 fL (80-98); Mean Platelet Volume 10.1 fL (9.4-12.3); Monocytes Absolute Auto 0.4 X10*3/uL (0.1-1.2); Monocytes Percent Auto 13.6 % (2-11); Neutrophils Absolute Auto 1.3 X10*3/uL (2.0-8.3); Neutrophils Percent Auto 43.8 % (45-73); Platelet Count 161 X10*3/uL (160-400); Red Blood Count 3.68 X10*6/uL (4.20-5.50); White Blood Count 2.9 X10*3/uL (4.8-10.8)
--- NOTE | 2019-12-13 02:34 | PC.NURSE ---
afib on the monitor, pt medicated, denies pain, talking in full sentences. skin pink warm and dry.
[2019-12-13 03:01] LABS: Alanine Aminotransferase 9 U/L (0-31); Albumin Level 4.2 g/dL (3.5-5.0); Alkaline Phosphatase 56 U/L (39-117); Anion Gap 14 (12-20); Aspartate Amino Transferase 21 U/L (5-31); Bilirubin Total 0.4 mg/dL (0.0-1.0); Blood Urea Nitrogen 11 mg/dL (9-16); Carbon Dioxide 19 mmol/L (22-29); Chloride 109 mmol/L (96-108); Creatinine Clr Calc Pharmacy 66.8; Estimated Glomerular Filt Rate > 60; Glucose Random 116 mg/dL (60-115); Potassium 3.7 mmol/l (3.3-5.1); Sodium 138 mmol/L (135-145); Total Protein 6.4 g/dL (6.5-8.0)
[2019-12-13 03:06] LABS: Troponin-I High Sensitivity 20.5 ng/L (<3.5-17.0)
[2019-12-13 03:16] LABS: Lipase 91 U/L (8-78)
--- NOTE | 2019-12-13 03:31 | PC.NURSE ---
pt hr unchanged. pt denies chest pain, no sob. trop elevated and monitored.
--- NOTE | 2019-12-13 04:41 | PC.NURSE ---
pt hr 123, bp improved to baseline. pt denies pain or sob. hospitalist at bedside and has seen the pt.
--- NOTE | 2019-12-13 04:45 | P.HPIM_ITS ---
History of Present Illness Date of Service: 12/13/19 Chief Complaint: Tachycardia 79 y/o female who presents from home due to tachycardia. Patient has a known hx of SVT's requiring multiple admission on current year. Discharged on 11/25, treated successfully with home Beta yamile meds and plan was for patient to have stress test and EP evaluation as outpatient. Patient had stress test done which was unremarkable. Had EP evaluation at [facility] and plan is to have ablation on 12/24/19. Today patients comes as reports that for the past day has been having episodes of her heart racing . On presentation to the ED her HR has been elevated 120's' which has not responded to IV metoprolol. ED discussed with net application architect streetcar operator Dr Montejo who recommends for adenosine or amiodarone at this point given soft BP. Decision for admission given. Patient seen and examined at the bedside, laying down in bed in no acute distress. ROS as above otherwise negative. Physical exam positive for tachycardia. Past medical history Hypertension Dyslipidemia Tachycardia Denies history of AFib or CAD Past surgical history Tonsillectomy Left knee replacement Left knee arthroscopic Social history Lives alone. Reports she stop smoking ?many years ago.? Reports social alcohol use which he stopped about 1.5 years ago. No illicit substance. Review of Systems Cardiovascular: Cardiovascular: Reports rapid heart rate [facility] Medical History (Updated 12/13/19 @ 04:53 by Ariella Shelby MD) Anemia Heart palpitations Hyperlipidemia Hypertension NSTEMI (non-ST elevated myocardial infarction) Osteoporosis Sinus tachycardia SVT (supraventricular tachycardia) Tachycardia Urinary incontinence Functional capacity: independent ambulation Family History Other CAD (coronary artery disease) Family history: reviewed and not pertinent Surgical History Hx of arthroscopic knee surgery Total knee replacement status Social History Alcohol intake: never Smoking Status: Never smoker Use of substances other than those prescribed or required for medical reasons: No Any prior treatment program specific to substance use: Yes Advance Directives: No service: No Current occupational status: retired Meds Allergies Allergy/AdvReac Type Severity Reaction Status Date / Time Uvuvilu-Xtq-Cjm Reductase Allergy Unknown PSEUDO Verified 11/25/19 14:50 Inhibitor ARHTITIS,ENZYMES [[id number] REDUCTASE INHIBITOR] ibuprofen [From ADVIL] AdvReac Unknown AGITATED Verified 11/25/19 14:50 Home Medications Medication Instructions Recorded Confirmed Type alendronate 70 mg PO QWEEK 11/25/19 12/13/19 History atenolol 25 mg PO BID 11/25/19 12/06/19 History ezetimibe 10 mg PO DAILY 11/25/19 12/06/19 History fluticasone propionate 2 spray INTRANASAL DAILY 11/25/19 12/06/19 History gemfibrozil 600 mg PO BID 11/25/19 12/06/19 History oxybutynin chloride 10 mg PO DAILY 11/25/19 12/06/19 History aspirin 81 mg tablet,delayed 81 mg PO DAILY 12/06/19 12/06/19 History release hydrocodone-acetaminophen 1 tab PO Q4H PRN 12/13/19 12/13/19 History Physical Exam Vital Signs and Narrative: Vital Signs: Last Vital Signs Temp 98.4 F 12/13/19 02:10 Pulse 123 H 12/13/19 02:35 Resp 16 12/13/19 02:35 BP 112/83 12/13/19 02:35 Pulse Ox 97 12/13/19 02:35 Body Mass Index 30.4 Const: General: cooperative, healthy appearing, comfortable and no acute distress Orientation/consciousness: patient oriented x3 HENMT: Head: Yes normal to inspection Eyes: General: appearance normal, both eyes and all related structures Neck: Yes normal visual inspection Chest: Chest palpation & inspection: normal inspection of the chest Resp: Effort & Inspection: normal respiratory effort Cardio: Jugular venous distension: no JVD Rate: tachycardic Heart sounds: S1 normal heart sound present and S2 normal heart sound present GI: Inspection: Yes normal to inspection Skin: General skin exam: no rashes or lesions noted Neuro: General: patient oriented x3 Extrem: General: Yes normal to inspection Results Labs Labs: Laboratory Tests 12/13/19 12/13/19 12/13/19 02:27 02:27 02:27 WBC 2.9 L RBC 3.68 L Hgb 11.0 L Hct 33.1 L MCV 89.9 MCH 29.9 MCHC 33.2 RDW 14.0 Plt Count 161 MPV 10.1 Immature Gran % (Auto) 0.0 Neut % (Auto) 43.8 L Lymph % (Auto) 37.4 [place] % (Auto) 13.6 H Eos % (Auto) 4.5 H Baso % (Auto) 0.7 Lymph # (Auto) 1.1 L [place] # (Auto) 0.4 Eos # (Auto) 0.1 Baso # (Auto) 0.0 Abs Immat Gran (auto) 0.00 Absolute Neuts (auto) 1.3 L Absolute Nucleated RBC 0.000 Nucleated RBC % (auto) 0.0 Sodium 138 Potassium 3.7 Chloride 109 H Carbon Dioxide 19 L Anion Gap 14 BUN 11 Creatinine 0.75 Estim Creat Clear Calc 66.8 Estimated GFR > 60 Random Glucose 116 H Calcium 9.0 Total Bilirubin 0.4 AST 21 ALT 9 Alkaline Phosphatase 56 Troponin I High Sens 20.5 H D Total Protein 6.4 L Albumin 4.2 Lipase 91 H Assessment and Plan (1) SVT (supraventricular tachycardia): Status: Acute (2) Hypertension: Status: Acute (3) Hyperlipidemia: Status: Acute Narrow complex tachycardia Continue with atenolol home dose One dose of Amiodarone 150 iV push to be given in 10 units as ordered 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 To follow up in am Osteoporosis: continue with alendronate home dose Hyperlipidemia: Continue with ezetimibe home dose continue with gemfibrozil home dose Urinary incontinence: continue with oxybutynin home dose
--- NOTE | 2019-12-13 04:56 | PC.NURSE ---
pt voided in the bedpan, buttocks redness noted no open area at this time.
--- NOTE | 2019-12-13 05:17 | PC.NURSE ---
hospitalist tx to call reg order for amiodarone not available in the pyxis as ordered.
--- NOTE | 2019-12-13 05:19 | SUR.OPER ---
waiting covid swabs, unable to collect at this time.
--- NOTE | 2019-12-13 06:05 | ECG_ITS ---
Test Reason : Check Rhythm Blood Pressure : / mmHG Vent. Rate : 055 BPM Atrial Rate : 055 BPM P-R Int : 162 ms QRS Dur : 086 ms QT Int : 428 ms P-R-T Axes : 041 -09 045 degrees QTc Int : 409 ms Sinus bradycardia Low voltage QRS RSR' or QR pattern in V1 suggests right ventricular conduction delay Abnormal ECG When compared with ECG of 13-DEC-2019 02:03, Sinus rhythm has replaced Supraventricular tachycardia Vent. rate has decreased BY 73 BPM Referred By: Jann Aranda Electronically Signed By:ORALIA BOYLE MD
--- NOTE | 2019-12-13 06:07 | PC.NURSE ---
pt hr broke amiodarone not given. hr 60 ekg completed.
--- NOTE | 2019-12-13 06:35 | PC.NURSE ---
critical lab troponin 36.0 read back Jean Paul luis antonio
[2019-12-13 10:08] LABS: SARS COV2 PCR INHOUSE NEGATIVE (Negative)
[2019-12-13] MEDS: Aspirin Enteric Coated 81 MG TABLET.DR PO (10:41)
[2019-12-13] MEDS: gemfibroziL 600 MG TABLET PO (10:41)
[2019-12-13] MEDS: atenoloL 25 MG TABLET PO (10:41)
[2019-12-13] MEDS: Ezetimibe 10 MG TABLET PO (10:42)
[2019-12-13] MEDS: Heparin Sodium,Porcine 5,000 UNIT/ML VIAL 5000 UNIT SUBCUT (10:43)
--- NOTE | 2019-12-13 11:26 | PM.CNCAR ---
History of Present Illness History of Present Illness Date of Consult: December 13, 2019 Requesting physician: Jann Aranda Chief complaint: TACHYCARDIA Narrative: 79-year-old female who was recently at [facility] with SVT. She had mild type 2 OR. She had Lexiscan which did not show any significant issue. She has been referred to EP and was set up to undergo ablation on Dec 23. She is not presenting with palpitations and was found to be in SVT. This was treated with IV metoprolol and it appears she reverted back to sinus rhythm overnight. She has no symptoms now. She had no CP or SOB. Review of Systems Review of Systems: No CP, SOB Yes all other systems are reviewed and are negative [facility], [facility] Past Medical History Medical History (Updated 12/13/19 @ 04:53 by Ariella Shelby MD) Anemia Heart palpitations Hyperlipidemia Hypertension NSTEMI (non-ST elevated myocardial infarction) Osteoporosis Sinus tachycardia SVT (supraventricular tachycardia) Tachycardia Urinary incontinence Functional capacity: independent ambulation Family History Family History Other CAD (coronary artery disease) Family history: reviewed and not pertinent Surgical History Surgical History Hx of arthroscopic knee surgery Total knee replacement status Social History Social History Alcohol intake: never Smoking Status: Never smoker Use of substances other than those prescribed or required for medical reasons: No Any prior treatment program specific to substance use: Yes Advance Directives: No service: No Current occupational status: retired Meds Allergies Allergy/AdvReac Type Severity Reaction Status Date / Time Goqdxxi-Ufa-Qua Reductase Allergy Unknown PSEUDO Verified 11/25/19 14:50 Inhibitor ARHTITIS,ENZYMES [[id number] REDUCTASE INHIBITOR] ibuprofen [From ADVIL] AdvReac Unknown AGITATED Verified 11/25/19 14:50 Home Medications Medication Instructions Recorded Confirmed Type alendronate 70 mg PO QWEEK 11/25/19 12/13/19 History atenolol 25 mg PO BID 11/25/19 12/13/19 History ezetimibe 10 mg PO DAILY 11/25/19 12/13/19 History fluticasone propionate 2 spray INTRANASAL DAILY 11/25/19 12/13/19 History gemfibrozil 600 mg PO BID 11/25/19 12/13/19 History oxybutynin chloride 10 mg PO DAILY 11/25/19 12/13/19 History aspirin 81 mg tablet,delayed 81 mg PO DAILY 12/06/19 12/13/19 History release hydrocodone-acetaminophen 1 tab PO Q4H PRN 12/13/19 12/13/19 History Physical Exam Vital Signs: Vital Signs: Vital Signs Temp Pulse Resp BP Pulse Ox 12/13/19 10:41 56 105/6 L 12/13/19 08:00 56 98 12/13/19 06:00 57 16 105/6 L 12/13/19 05:56 60 18 150/60 H 98 12/13/19 04:00 63 20 116/64 12/13/19 02:35 123 H 16 112/83 97 12/13/19 02:29 126 H 124/97 H 12/13/19 02:10 98.4 F 127 H 16 148/100 H 96 Body Mass Index 30.4 GENERAL APPEARANCE: in no acute distress, well developed, well nourished. HEENT: unremarkable. HEAD: normocephalic, atraumatic. NECK/THYROID: no carotid bruit, no jugular venous distention. SKIN: no suspicious lesions, warm and dry. HEART: no murmurs, regular rate and rhythm, S1, S2 normal. LUNGS: clear to auscultation bilaterally. ABDOMEN: normal, bowel sounds present, soft, nontender, nondistended. EXTREMITIES: no clubbing, cyanosis, or edema. PERIPHERAL PULSES: equal. NEUROLOGIC: nonfocal, alert and oriented. PSYCH: mood/affect full range. Results Labs and Meds Result diagrams: 12/13/19 02:27 12/13/19 02:27 Lab results: Laboratory Results - last 24 hr 12/13/19 12/13/19 12/13/19 02:27 02:27 02:27 WBC 2.9 L RBC 3.68 L Hgb 11.0 L Hct 33.1 L MCV 89.9 MCH 29.9 MCHC 33.2 RDW 14.0 Plt Count 161 MPV 10.1 Immature Gran % (Auto) 0.0 Neut % (Auto) 43.8 L Lymph % (Auto) 37.4 [place] % (Auto) 13.6 H Eos % (Auto) 4.5 H Baso % (Auto) 0.7 Lymph # (Auto) 1.1 L [place] # (Auto) 0.4 Eos # (Auto) 0.1 Baso # (Auto) 0.0 Abs Immat Gran (auto) 0.00 Absolute Neuts (auto) 1.3 L Absolute Nucleated RBC 0.000 Nucleated RBC % (auto) 0.0 Sodium 138 Potassium 3.7 Chloride 109 H Carbon Dioxide 19 L Anion Gap 14 BUN 11 Creatinine 0.75 Estim Creat Clear Calc 66.8 Estimated GFR > 60 Random Glucose 116 H Calcium 9.0 Total Bilirubin 0.4 AST 21 ALT 9 Alkaline Phosphatase 56 Troponin I High Sens 20.5 H D Total Protein 6.4 L Albumin 4.2 Lipase 91 H Coronavirus (PCR) 12/13/19 08:47 WBC RBC Hgb Hct MCV MCH MCHC RDW Plt Count MPV Immature Gran % (Auto) Neut % (Auto) Lymph % (Auto) [place] % (Auto) Eos % (Auto) Baso % (Auto) Lymph # (Auto) [place] # (Auto) Eos # (Auto) Baso # (Auto) Abs Immat Gran (auto) Absolute Neuts (auto) Absolute Nucleated RBC Nucleated RBC % (auto) Sodium Potassium Chloride Carbon Dioxide Anion Gap BUN Creatinine Estim Creat Clear Calc Estimated GFR Random Glucose Calcium Total Bilirubin AST ALT Alkaline Phosphatase Troponin I High Sens Total Protein Albumin Lipase Coronavirus (PCR) NEGATIVE Cardiology Testing Echo: report reviewed EKG Interpretation EKG Comments: 1) Sinus bradycardia, Poor R-wave progression. 2) SVT 128 beats/min. Assessment and Plan (1) SVT (supraventricular tachycardia): Status: Acute 79-year-old female with SVT. Clinically stable right now. She is already set up to undergo ablation on Dec 23. Same medications and can discharge home. Thank you for allowing me to participate in the care of your patient. Please feel free to contact me if you have any questions.
--- NOTE | 2019-12-13 13:16 | PM.DS ---
DS: Providers Provider Date of admission: 12/13/19 06:06 Primary care physician: Royer Botello MD Consults: 12/13/19 09:30 Consult to Physician Routine Consulting Provider: [facility] Reason for consultation: narrow complex tachycardia Has provider been notified: No DS: Diagnosis Discharge Diagnosis (1) SVT (supraventricular tachycardia): Status: Resolved DS: Summary Hospital Course Hospital Course: 79-year-old female admitted with SVT patient received IV Lopressor, patient converted to sinus rhythm , heart rate remains stable, patient has 4-5 episodes of SVT during last few months, patient is scheduled to have ablation on December 23 at [facility], patient was seen by Cardiology, cardiology cleared patient for discharge and recommended to continue the same medication, patient was stable discharged home, Time Spent with Patient Time attestation: Total time spent providing and/or coordinating discharge services: Physical Exam Vital Signs: Vital Signs: Vital Signs Temp Pulse Resp BP Pulse Ox 12/13/19 11:28 97.5 F 48 L 109/55 L 98 12/13/19 10:41 56 105/6 L 12/13/19 08:00 56 98 12/13/19 06:00 57 16 105/6 L 12/13/19 05:56 60 18 150/60 H 98 12/13/19 04:00 63 20 116/64 12/13/19 02:35 123 H 16 112/83 97 12/13/19 02:29 126 H 124/97 H 12/13/19 02:10 98.4 F 127 H 16 148/100 H 96 Body Mass Index 30.4 DS: Data Data Completed and Pending Labs on day of discharge: Labs from last 24 hours 12/13/19 12/13/19 12/13/19 08:47 02:27 02:27 WBC RBC Hgb Hct MCV MCH MCHC RDW Plt Count MPV Immature Gran % (Auto) Neut % (Auto) Lymph % (Auto) [place] % (Auto) Eos % (Auto) Baso % (Auto) Lymph # (Auto) [place] # (Auto) Eos # (Auto) Baso # (Auto) Abs Immat Gran (auto) Absolute Neuts (auto) Absolute Nucleated RBC Nucleated RBC % (auto) Sodium 138 Potassium 3.7 Chloride 109 H Carbon Dioxide 19 L Anion Gap 14 BUN 11 Creatinine 0.75 Estim Creat Clear Calc 66.8 Estimated GFR > 60 Random Glucose 116 H Calcium 9.0 Total Bilirubin 0.4 AST 21 ALT 9 Alkaline Phosphatase 56 Troponin I High Sens 20.5 H D Total Protein 6.4 L Albumin 4.2 Lipase 91 H Coronavirus (PCR) NEGATIVE 12/13/19 02:27 WBC 2.9 L RBC 3.68 L Hgb 11.0 L Hct 33.1 L MCV 89.9 MCH 29.9 MCHC 33.2 RDW 14.0 Plt Count 161 MPV 10.1 Immature Gran % (Auto) 0.0 Neut % (Auto) 43.8 L Lymph % (Auto) 37.4 [place] % (Auto) 13.6 H Eos % (Auto) 4.5 H Baso % (Auto) 0.7 Lymph # (Auto) 1.1 L [place] # (Auto) 0.4 Eos # (Auto) 0.1 Baso # (Auto) 0.0 Abs Immat Gran (auto) 0.00 Absolute Neuts (auto) 1.3 L Absolute Nucleated RBC 0.000 Nucleated RBC % (auto) 0.0 Sodium Potassium Chloride Carbon Dioxide Anion Gap BUN Creatinine Estim Creat Clear Calc Estimated GFR Random Glucose Calcium Total Bilirubin AST ALT Alkaline Phosphatase Troponin I High Sens Total Protein Albumin Lipase Coronavirus (PCR) Discharge Plan Discharge Anticipated Discharge Date/Time: 12/13/19 11:20 Patient Disposition: Home, Self-Care Referrals: Royer Botello MD [Primary Care Provider] - Discharge Medications: Continued alendronate 70 mg tablet 70 mg PO QWEEK RF: 0 atenolol 25 mg tablet 25 mg PO BID RF: 0 gemfibrozil 600 mg tablet 600 mg PO BID RF: 0 fluticasone propionate 50 mcg/actuation spray,suspension 2 spray intranasal DAILY RF: 0 ezetimibe 10 mg tablet 10 mg PO DAILY RF: 0 oxybutynin chloride 10 mg Tablet Extended Release 24hr 10 mg PO DAILY RF: 0 hydrocodone-acetaminophen 5-325 mg tablet 1 tab PO Q4H PRN (Reason: pain) RF: 0 aspirin [Adult Low Dose Aspirin] 81 mg tablet,delayed release (DR/EC) 81 mg PO DAILY RF: 0 Discharge Orders: Discharge Order (Routine); Ordered 12/13/19 Ordered By: Jann Aranda Activity on Discharge: As tolerated Discharge Date/Time: 12/13/19 14:09 Visit Report Forms: Patient Portal Discharge page Care Plan Goals: see discharge instructions Health Concerns: see discharge instructions Plan of Treatment: see discharge instructions
== END 2019-12-13 14:09 | disposition home or self-care (01) | DRG 310 ==
LOC: HO.ED 04:12 → HO.IMC 06:22
PROVIDERS: Admitting Provider Internal Medicine; Emergency Provider Student in an Organized Health Care Education/Training Program; PCP Internal Medicine; Visit Provider Internal Medicine
DX: I47.1 Supraventricular tachycardia (principal); M81.0 Age-related osteoporosis without current pathological fracture; E78.5 Hyperlipidemia, unspecified; R32 Unspecified urinary incontinence; I25.2 Old myocardial infarction; Z20.828 Contact with and (suspected) exposure to other viral communicable diseases; Z96.652 Presence of left artificial knee joint; Z79.82 Long term (current) use of aspirin; Z79.51 Long term (current) use of inhaled steroids; Z79.891 Long term (current) use of opiate analgesic; Z79.899 Other long term (current) drug therapy
CPT/HCPCS: 36415; 71045; 80053; 83690; 84484; 85025; 87635; 93005; 96374; 99285

== ENCOUNTER 2020-02-02 08:12 | Emergency (ER) | payer MEDICARE, OTHER, SELFPAY ==
--- NOTE | 2020-02-02 | ECG_ITS ---
Test Reason : RAPID HEARTRATE Blood Pressure : / mmHG Vent. Rate : 129 BPM Atrial Rate : 104 BPM P-R Int : 000 ms QRS Dur : 086 ms QT Int : 322 ms P-R-T Axes : 000 -15 041 degrees QTc Int : 471 ms Junctional tachycardia vs supraventricular tachycardia Low voltage QRS Nonspecific ST and T wave abnormality Abnormal ECG When compared with ECG of 13-DEC-2019 06:05, Junctional rhythm has replaced Sinus rhythm Vent. rate has increased BY 74 BPM Referred By: Stephon Mcclain Electronically Signed By:Jame Montejo
[2020-02-02 08:22] VITALS: BP 116/65; BP 127/89; PULSE 130; RESP 16; TEMP 36.9; O2SAT 100; O2SAT 99; BMI 32.8
--- NOTE | 2020-02-02 08:26 | XR_ITS ---
EXAMINATION: XR CHEST CLINICAL INFORMATION: Palpitations COMPARISON: 12/13/2019 TECHNIQUE: Frontal view of the chest was obtained. FINDINGS: Lungs are well expanded. Linear opacity of discoid atelectasis at the left lateral lung base. No evidence of pulmonary consolidation. Cardiac silhouette is normal in size and hilar contours are normal. No pulmonary edema or pleural effusion. Chronic, severe osteoarthritis of bilateral glenohumeral joints. Mild dextrocurvature of the degenerated thoracic spine. XR/XR chest 1V IMPRESSION: No acute cardiopulmonary findings compared to 12/13/2019.
--- NOTE | 2020-02-02 08:26 | ECG_ITS ---
Test Reason : REPEAT Blood Pressure : / mmHG Vent. Rate : 065 BPM Atrial Rate : 065 BPM P-R Int : 164 ms QRS Dur : 086 ms QT Int : 418 ms P-R-T Axes : 044 -17 039 degrees QTc Int : 434 ms Normal sinus rhythm Low voltage QRS Cannot rule out Anterior infarct , age undetermined Abnormal ECG When compared with ECG of 02-FEB-2020 09:50, Sinus rhythm has replaced Junctional rhythm Rhythm change Referred By: Stephon Mcclain Electronically Signed By:THOM MANN
--- NOTE | 2020-02-02 08:29 | ED_ITS ---
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 This patient had similar episodes in the past and patient was placed on atenolol by the non ferrous material handler. Patient has no symptoms now. Related Data Home Medications Medication Instructions Recorded Confirmed alendronate 70 mg PO QWEEK 11/25/19 12/13/19 atenolol 25 mg PO BID 11/25/19 12/13/19 ezetimibe 10 mg PO DAILY 11/25/19 12/13/19 fluticasone propionate 2 spray INTRANASAL DAILY 11/25/19 12/13/19 gemfibrozil 600 mg PO BID 11/25/19 12/13/19 oxybutynin chloride 10 mg PO DAILY 11/25/19 12/13/19 aspirin 81 mg tablet,delayed 81 mg PO DAILY 12/06/19 12/13/19 release hydrocodone-acetaminophen 1 tab PO Q4H PRN 12/13/19 12/13/19 Allergies Allergy/AdvReac Type Severity Reaction Status Date / Time Lmthrhm-Iyo-Ugc Reductase Allergy Unknown PSEUDO Verified 11/25/19 14:50 Inhibitor ARHTITIS,ENZYMES [VVIUGPY-BNV-YVK REDUCTASE INHIBITOR] sulindac Allergy Itching Verified 02/02/20 08:57 ibuprofen [From ADVIL] AdvReac Unknown AGITATED Verified 11/25/19 14:50 Review of Systems Review of Systems: All other systems are reviewed and are negative Constitutional: Reports as per HPI and Reports no additional constitutional complaints Eyes: Reports as per HPI and Reports no additional eye complaints Reports system reviewed and no additional complaints, except as documented Cardiovascular: Reports as per HPI and Reports no additional cardiovascular complaints Respiratory: Reports as per HPI and Reports no additional respiratory complaints Gastrointestinal: Reports as per HPI and Reports no additional gastrointestinal complaints Genitourinary: Reports no additional female genitourinary complaints Musculoskeletal: Reports no additional musculoskeletal complaints Skin/Breast: Reports system reviewed and no additional complaints, except as docu Psychiatric: Reports no additional psychiatric complaints Endocrine: Reports no additional endocrine complaints Hematologic/Lymphatic: Reports no additional hematologic/lymphatic complaints Allergic/Immunologic: Reports no additional allergic/immunologic complaints Reports system reviewed and no additional complaints, except as documented and Reports Abnormal speech present [facility] Past Medical History Medical History (Updated 02/02/20 @ 13:45 by Stephon Mcclain MD) Anemia Heart palpitations Hyperlipidemia Hypertension NSTEMI (non-ST elevated myocardial infarction) Osteoporosis Sinus tachycardia SVT (supraventricular tachycardia) Tachycardia Urinary incontinence Surgical History Hx of arthroscopic knee surgery Total knee replacement status Family History Family History Other CAD (coronary artery disease) Social History Social History Household Members: None Housing: House Alcohol intake: never Smoking Status: Never smoker Smoked in Last 30 Days: No Use of substances other than those prescribed or required for medical reasons: No Advance Directives: No Advance Directives Information Provided: No service: No Current occupational status: retired Physical Exam Vital Signs: Vital Signs: Last Vital Signs Temp 98.4 F 02/02/20 08:22 Pulse 64 02/02/20 13:04 Resp 14 02/02/20 13:04 BP 111/64 02/02/20 13:04 Pulse Ox 99 02/02/20 13:04 Body Mass Index 32.8 Vital signs have been reviewed as normal and appeared to be correct. Blood pressure normal. Tachycardia. Respiration rate normal. Temperature normal. Oxygen saturation normal. Appearance: Alert. Oriented X3. No acute distress. Head: Normal external exam. Normocephalic. Atraumatic. No Barron signs noted. No raccoon eyes noted Eyes: PERRLA. EOMI. Conjunctiva and sclera normal. Eyelids normal. ENT: EAC normal. TM's Normal. Pharynx normal. Uvula midline. Moist mucous membranes. No trismus noted. No drooling noted. No muffled voice noted. Neck: Normal inspection. Neck supple. FROM. No adenopathy. Thyroid Normal. No meningeal signs. No neck mass noted. CVS: rapid heart rate and rhythm. Heart sound normal. No murmurs noted. Pulses normal throughout. Respiratory: No respiratory distress. Painless inspiration. Breath sounds normal. No wheezes/rales/rhonchi noted. Chest nontender. No accessory muscle usage noted or decreased air movement noted. Abdomen: Soft and nontender. Bowel sounds normal in all 4 quadrants. No distention noted. No organomegaly noted. No visible injury noted. Back: No CVA tenderness. Full range of motion noted. Skin: Skin warm and dry. Normal skin color. Normal skin turgor. No rashes/lesions/lacerations noted. Extremities: No lower extremity edema. Extremities exhibit normal range of motion. Extremities nontender. Neuro: Oriented X 3. No motor deficit. No sensory deficit. Reflexes normal. MDM - Arrhythmia/Palpitations MDM Narrative Medical decision making narrative: Assessment and plan. 79-year-old female came in after felt palpitation and found to have SVT with heart rate of 130's-140's, in the emergency department was borderline hypotensiv e but asymptomatic. 1. Cardiology consult was obtained and Dr. Purcell had full evaluation of th e patient in emergency department, patient converted on her own with no need for chemical/electrical cardioversion, blood pressure was improved after heart rate slowed down, patient declined any chest pain or shortness of breath, patient's 1st troponin still within normal range for female than 3 hours repeat troponin with slight increase of troponin but patient had no chest pain or EKG ischemic changes and Dr. Purcell approved to discharge the patient home and he will contact her in the morning for further plan for possible ablation procedure. Patient was instructed to refrain from caffeinated coffee/chocolates. Lab Data Result diagrams: 02/02/20 08:44 02/02/20 08:44 Labs: Lab Results 02/02/20 02/02/20 02/02/20 Range/Units 08:44 08:44 08:44 WBC 5.3 (4.8-10.8) X10*3/uL RBC 3.68 L (4.20-5.50) X10*6/uL Hgb 11.1 L (12.0-16.0) g/dl Hct 33.2 L (37-47) % MCV 90.2 (80-98) fL MCH 30.2 (27.0-33.0) pg MCHC 33.4 (31.0-35.0) g/dl RDW 15.0 (11.0-16.0) % Plt Count 217 D (160-400) X10*3/uL MPV 9.0 L (9.4-12.3) fL Immature Gran % (Auto) 0.4 (0.0-0.4) % Neut % (Auto) 48.1 (45-73) % Lymph % (Auto) 13.1 L (20-40) % [place] % (Auto) 7.7 (2-11) % Eos % (Auto) 30.0 H (0-4) % Baso % (Auto) 0.7 (0-2) % Lymph # (Auto) 0.7 L (1.2-4.9) X10*3/uL [place] # (Auto) 0.4 (0.1-1.2) X10*3/uL Eos # (Auto) 1.6 H (0.0-0.4) X10*3/uL Baso # (Auto) 0.0 (0.0-0.2) X10*3/uL Abs Immat Gran (auto) 0.02 (0.00-0.03) X10*3/uL Absolute Neuts (auto) 2.6 (2.0-8.3) X10*3/uL Absolute Nucleated RBC 0.000 (0.0-0.012) X10*3/uL Nucleated RBC % (auto) 0.0 (0.0-0.2) /100WBC Sodium 139 (135-145) mmol/L Potassium 4.0 (3.3-5.1) mmol/l Chloride 109 H (96-108) mmol/L Carbon Dioxide 20 L (22-29) mmol/L Anion Gap 14 (12-20) BUN 15 (9-16) mg/dL Creatinine 0.72 (0.5-1.4) mg/dL Estim Creat Clear Calc 77.4 Estimated GFR > 60 Random Glucose 106 (60-115) mg/dL Calcium 8.5 (8.4-10.2) mg/dL Magnesium 1.9 (1.6-2.6) mg/dL Total Bilirubin 0.4 (0.0-1.0) mg/dL Direct Bilirubin 0.2 (0.0-0.5) mg/dL AST 22 (5-31) U/L ALT 11 (0-31) U/L Alkaline Phosphatase 84 D (39-117) U/L Troponin I High Sens 23.3 H (<3.5-17.0) ng/L B-Natriuretic Peptide 196 H (<100) pg/mL Total Protein 6.2 L (6.5-8.0) g/dL Albumin 4.0 (3.5-5.0) g/dL Lipase 41 (8-78) U/L 12// Range/Units 11:44 WBC (4.8-10.8) X10*3/uL RBC (4.20-5.50) X10*6/uL Hgb (12.0-16.0) g/dl Hct (37-47) % MCV (80-98) fL MCH (27.0-33.0) pg MCHC (31.0-35.0) g/dl RDW (11.0-16.0) % Plt Count (160-400) X10*3/uL MPV (9.4-12.3) fL Immature Gran % (Auto) (0.0-0.4) % Neut % (Auto) (45-73) % Lymph % (Auto) (20-40) % [place] % (Auto) (2-11) % Eos % (Auto) (0-4) % Baso % (Auto) (0-2) % Lymph # (Auto) (1.2-4.9) X10*3/uL [place] # (Auto) (0.1-1.2) X10*3/uL Eos # (Auto) (0.0-0.4) X10*3/uL Baso # (Auto) (0.0-0.2) X10*3/uL Abs Immat Gran (auto) (0.00-0.03) X10*3/uL Absolute Neuts (auto) (2.0-8.3) X10*3/uL Absolute Nucleated RBC (0.0-0.012) X10*3/uL Nucleated RBC % (auto) (0.0-0.2) /100WBC Sodium (135-145) mmol/L Potassium (3.3-5.1) mmol/l Chloride (96-108) mmol/L Carbon Dioxide (22-29) mmol/L Anion Gap (12-20) BUN (9-16) mg/dL Creatinine (0.5-1.4) mg/dL Estim Creat Clear Calc Estimated GFR Random Glucose (60-115) mg/dL Calcium (8.4-10.2) mg/dL Magnesium (1.6-2.6) mg/dL Total Bilirubin (0.0-1.0) mg/dL Direct Bilirubin (0.0-0.5) mg/dL AST (5-31) U/L ALT (0-31) U/L Alkaline Phosphatase (39-117) U/L Troponin I High Sens 39.5 H D (<3.5-17.0) ng/L B-Natriuretic Peptide (<100) pg/mL Total Protein (6.5-8.0) g/dL Albumin (3.5-5.0) g/dL Lipase (8-78) U/L Imaging Data Chest x-ray: Radiologist's impression: No acute intrathoracic pathology. ECG Data Interpretation: SVT at 129 beats per minute, left axis deviation, normal intervals, diffuse nonspecific T-wave flattening and inversion. Discharge Plan Discharge Clinical Impression: SVT (supraventricular tachycardia) Patient Disposition: Home, Self-Care Instructions: Supraventricular Tachycardia (ED) Prescriptions: No Action alendronate 70 mg tablet 70 mg PO QWEEK RF: 0 atenolol 25 mg tablet 25 mg PO BID RF: 0 gemfibrozil 600 mg tablet 600 mg PO BID RF: 0 fluticasone propionate 50 mcg/actuation spray,suspension 2 spray intranasal DAILY RF: 0 ezetimibe 10 mg tablet 10 mg PO DAILY RF: 0 oxybutynin chloride 10 mg Tablet Extended Release 24hr 10 mg PO DAILY RF: 0 hydrocodone-acetaminophen 5-325 mg tablet 1 tab PO Q4H PRN (Reason: pain) RF: 0 aspirin [Adult Low Dose Aspirin] 81 mg tablet,delayed release (DR/EC) 81 mg PO DAILY RF: 0 Referrals: Royer Botello MD [Primary Care Provider] - 2 days Wai Purcell MD [Physician] - 2 days
[2020-02-02 08:49] LABS: Basophils Percent Auto 0.7 % (0-2); Eosinophils Absolute Auto 1.6 X10*3/uL (0.0-0.4); Hematocrit 33.2 % (37-47); Hemoglobin 11.1 g/dl (12.0-16.0); Imm Gran Abs Auto 0.02 X10*3/uL (0.00-0.03); Imm Gran Pct Auto 0.4 % (0.0-0.4); Lymphocytes Absolute Auto 0.7 X10*3/uL (1.2-4.9); Lymphocytes Percent Auto 13.1 % (20-40); MANUAL DIFF FLAG NO; Mean Corpuscular HGB Conc 33.4 g/dl (31.0-35.0); Mean Corpuscular Hemoglobin 30.2 pg (27.0-33.0); Mean Corpuscular Volume 90.2 fL (80-98); Monocytes Absolute Auto 0.4 X10*3/uL (0.1-1.2); Monocytes Percent Auto 7.7 % (2-11); Neutrophils Absolute Auto 2.6 X10*3/uL (2.0-8.3); Neutrophils Percent Auto 48.1 % (45-73); Platelet Count 217 X10*3/uL (160-400); Red Blood Count 3.68 X10*6/uL (4.20-5.50); White Blood Count 5.3 X10*3/uL (4.8-10.8)
[2020-02-02 09:16] LABS: Alanine Aminotransferase 11 U/L (0-31); Alkaline Phosphatase 84 U/L (39-117); Anion Gap 14 (12-20); Aspartate Amino Transferase 22 U/L (5-31); Bilirubin Direct 0.2 mg/dL (0.0-0.5); Bilirubin Total 0.4 mg/dL (0.0-1.0); Blood Urea Nitrogen 15 mg/dL (9-16); Calcium 8.5 mg/dL (8.4-10.2); Carbon Dioxide 20 mmol/L (22-29); Chloride 109 mmol/L (96-108); Creatinine Clr Calc Pharmacy 77.4; Estimated Glomerular Filt Rate > 60; Glucose Random 106 mg/dL (60-115); Lipase 41 U/L (8-78); Magnesium 1.9 mg/dL (1.6-2.6); Sodium 139 mmol/L (135-145); Total Protein 6.2 g/dL (6.5-8.0)
[2020-02-02 09:25] LABS: B Type Natriuretic Peptide 196 pg/mL (<100); Troponin-I High Sensitivity 23.3 ng/L (<3.5-17.0)
[2020-02-02 10:40] VITALS: BP 96/64; PULSE 121; RESP 16; O2SAT 98
[2020-02-02] MEDS: 0.9 % Sodium Chloride 1,000 ML 999 ML IVCONT (10:58)
--- NOTE | 2020-02-02 11:03 | PC.NURSE ---
Dr Cheney made aware of pt's low bp. Orders provided, and pt medicated per emar.
--- NOTE | 2020-02-02 12:50 | PM.CNCAR ---
History of Present Illness History of Present Illness Date of Service: 02/02/20 Chief complaint: tachy Narrative: This is a cardiology consultation regarding tachycardia. Patient is currently in the ER. We have seen her in the past during hospitalizations. She has a diagnosis of SVT. She has had these symptoms for almost 10 years but mostly stable till recently. She has had almost 3 hospitalizations for this same issue. She saw at [facility] and it seems that she underwent ablation but that was unsuccessful per patient. I am unable to review the actual ablation report. In the interim, his beta-yamile dose was apparently increased to atenolol 50 mg in the morning and 25 mg the evening but when she saw her PCP are heart rate is only in the 40s and he cut back to 25 b.i.d. again. Today morning she woke up with palpitations and that led to another ER presentation. We were about to give her IV adenosine but before that she converted back to sinus rhythm herself. EKG is pending at this time. Otherwise she does not have any chest pain or shortness of breath or any other cardiac symptoms. Review of Systems Review of Systems: Yes all other systems are reviewed and are negative Cardiovascular: Cardiovascular: Reports as per HPI, Reports no additional cardiovascular complaints, Denies Abdominal Cramping after Meds, Denies Abdominal Distension, Denies chest pain, Denies chest pain with activity, Denies Epigastric Pain, Denies epigastric discomfort, Denies diaphoresis, Denies syncope, Reports rapid heart rate, Denies pedal edema, Denies edema, Denies leg ulcers, Denies leg edema, Denies lightheadedness, Denies Loss of Consciousness, Reports palpitations, Denies dyspnea on exertion and Denies orthopnea Respiratory: Respiratory: Denies dyspnea on exertion Neurologic: Denies syncope Endocrine: Endocrine: Reports palpitations PMFSH Past Medical History Medical History Anemia Heart palpitations Hyperlipidemia Hypertension NSTEMI (non-ST elevated myocardial infarction) Osteoporosis Sinus tachycardia SVT (supraventricular tachycardia) Tachycardia Urinary incontinence Family History Family History Other CAD (coronary artery disease) Surgical History Surgical History Hx of arthroscopic knee surgery Total knee replacement status Social History Social History Household Members: None Housing: House Alcohol intake: never Smoking Status: Never smoker Smoked in Last 30 Days: No Use of substances other than those prescribed or required for medical reasons: No Advance Directives: No Advance Directives Information Provided: No service: No Current occupational status: retired Meds Allergies Allergy/AdvReac Type Severity Reaction Status Date / Time Uvwcnfs-Rkg-Jea Reductase Allergy Unknown PSEUDO Verified 11/25/19 14:50 Inhibitor ARHTITIS,ENZYMES [BKPSQPN-PML-XPI REDUCTASE INHIBITOR] sulindac Allergy Itching Verified 02/02/20 08:57 ibuprofen [From ADVIL] AdvReac Unknown AGITATED Verified 11/25/19 14:50 Home Medications Medication Instructions Recorded Confirmed Type alendronate 70 mg PO QWEEK 11/25/19 12/13/19 History atenolol 25 mg PO BID 11/25/19 12/13/19 History ezetimibe 10 mg PO DAILY 11/25/19 12/13/19 History fluticasone propionate 2 spray INTRANASAL DAILY 11/25/19 12/13/19 History gemfibrozil 600 mg PO BID 11/25/19 12/13/19 History oxybutynin chloride 10 mg PO DAILY 11/25/19 12/13/19 History aspirin 81 mg tablet,delayed 81 mg PO DAILY 12/06/19 12/13/19 History release hydrocodone-acetaminophen 1 tab PO Q4H PRN 12/13/19 12/13/19 History Physical Exam Vital Signs: Vital Signs: Last Vital Signs Temp 98.4 F 02/02/20 08:22 Pulse 121 H 02/02/20 10:40 Resp 16 02/02/20 10:40 BP 96/64 02/02/20 10:40 Pulse Ox 98 02/02/20 10:40 Body Mass Index 32.8 Const: General: cooperative, comfortable and no acute distress Orientation/consciousness: patient oriented x3 HENMT: Other: Unremarkable Neck: Neck: Yes normal visual inspection Chest: Chest palpation & inspection: normal inspection of the chest Resp: Auscultation: clear to auscultation bilaterally, no crackles and no wheezes Cardio: Jugular venous distension: no JVD Palpation: normal PMI Heart sounds: S1 normal heart sound present, S2 normal heart sound present, no gallops, no murmurs and no rubs GI: Palpation (GI): Soft to palpation Back/Spine/Pelvis: Other: unremarkable Skin: General skin exam: no rashes or lesions noted Neuro: General: patient oriented x3 Extrem: General: Yes no clubbing, cyanosis or edema Psych: Mental Status: mental status grossly normal Results Labs and Meds Result diagrams: 02/02/20 08:44 02/02/20 08:44 Lab results: Laboratory Results - last 24 hr 02/02/20 02/02/20 02/02/20 08:44 08:44 08:44 WBC 5.3 RBC 3.68 L Hgb 11.1 L Hct 33.2 L MCV 90.2 MCH 30.2 MCHC 33.4 RDW 15.0 Plt Count 217 D MPV 9.0 L Immature Gran % (Auto) 0.4 Neut % (Auto) 48.1 Lymph % (Auto) 13.1 L [place] % (Auto) 7.7 Eos % (Auto) 30.0 H Baso % (Auto) 0.7 Lymph # (Auto) 0.7 L [place] # (Auto) 0.4 Eos # (Auto) 1.6 H Baso # (Auto) 0.0 Abs Immat Gran (auto) 0.02 Absolute Neuts (auto) 2.6 Absolute Nucleated RBC 0.000 Nucleated RBC % (auto) 0.0 Sodium 139 Potassium 4.0 Chloride 109 H Carbon Dioxide 20 L Anion Gap 14 BUN 15 Creatinine 0.72 Estim Creat Clear Calc 77.4 Estimated GFR > 60 Random Glucose 106 Calcium 8.5 Magnesium 1.9 Total Bilirubin 0.4 Direct Bilirubin 0.2 AST 22 ALT 11 Alkaline Phosphatase 84 D Troponin I High Sens 23.3 H B-Natriuretic Peptide 196 H Total Protein 6.2 L Albumin 4.0 Lipase 41 Assessment and Plan (1) Heart palpitations: Status: Acute (2) SVT (supraventricular tachycardia): Status: Acute EKG on admission shows narrow complex tachycardia at 129/Min with 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 In the repeat EKG, she is in sinus rhythm at 65/Min. We will plan to give IV adenosine but she converted back to sinus herself. Per patient, she underwent ablation by Dr. castillo who but unsuccessful. I will contact him tomorrow as to further plan. In the interim, she can stay on the same dose of beta-blockers due to concern for getting bradycardic with a higher dose. Possibly candidate for Flecainide. Trops are slightly elevated at 23. Awaiting second set. Imaging study few months ago and that did not show any clear evidence of ischemia or infarction. Most likely all demand related troponin leak.
[2020-02-02 13:04] VITALS: BP 111/64; PULSE 64; RESP 14; O2SAT 99
[2020-02-02 13:04] LABS: Troponin-I High Sensitivity 39.5 ng/L (<3.5-17.0)
--- NOTE | 2020-02-02 13:04 | PC.NURSE ---
Prior to adenosine administration pts hr and and rhythm converted to a nsr. Dr Cheney aware and held dose.
== END 2020-02-02 14:10 | disposition home or self-care (01) ==
PROVIDERS: Emergency Provider Emergency Medicine; PCP Internal Medicine
DX: I47.1 Supraventricular tachycardia (principal); R00.2 Palpitations; Z79.899 Other long term (current) drug therapy
CPT/HCPCS: 36415; 71045; 80048; 80076; 83690; 83735; 83880; 84484; 85025; 93005; 96361; 96374; 99284; 99285

== ENCOUNTER → 2020-02-05 10:27 | Outpatient (BNVA) | payer MEDICARE, OTHER, SELFPAY | PROVIDERS: PCP Internal Medicine; Visit Provider Nurse Practitioner Family | DX: I47.1 Supraventricular tachycardia (principal); I21.4 Non-ST elevation (NSTEMI) myocardial infarction; I10 Essential (primary) hypertension | CPT/HCPCS: 99212 ==

== ENCOUNTER → 2020-04-28 10:27 | Outpatient (BNVA) | payer MEDICARE, OTHER, SELFPAY | PROVIDERS: PCP Internal Medicine; Visit Provider Internal Medicine Cardiovascular Disease | DX: Z01.810 Encounter for preprocedural cardiovascular examination (principal); I47.1 Supraventricular tachycardia; Z79.899 Other long term (current) drug therapy | CPT/HCPCS: 99212 ==

== ENCOUNTER 2020-06-29 12:50 | Outpatient (REF) | payer MEDICARE, OTHER, SELFPAY ==
--- NOTE | ~2020-06-29 | XR_ITS ---
EXAMINATION: BILATERAL SHOULDER X-RAY CLINICAL INFORMATION: Pain and limited range of motion COMPARISON: None TECHNIQUE: 3 views of each shoulder FINDINGS: Right: Bone alignment is normal. No fracture or dislocation. There is severe arthritis at the glenohumeral joint with joint space narrowing and osteophyte formation. There is periarticular soft tissue ossification inferior to the glenohumeral joint. There is mild arthritis at the acromioclavicular joint. Left: Bone alignment is normal. No fracture or dislocation is seen. There is severe arthritis at the glenohumeral joint with joint space narrowing and osteophyte formation. There are periarticular soft tissue ossifications. There is mild arthritis at the acromioclavicular joint. XR/XR shoulder RT min 2V IMPRESSION: Severe arthritis at the bilateral glenohumeral joints.
--- NOTE | ~2020-06-29 | XR_ITS ---
EXAMINATION: BILATERAL SHOULDER X-RAY CLINICAL INFORMATION: Pain and limited range of motion COMPARISON: None TECHNIQUE: 3 views of each shoulder FINDINGS: Right: Bone alignment is normal. No fracture or dislocation. There is severe arthritis at the glenohumeral joint with joint space narrowing and osteophyte formation. There is periarticular soft tissue ossification inferior to the glenohumeral joint. There is mild arthritis at the acromioclavicular joint. Left: Bone alignment is normal. No fracture or dislocation is seen. There is severe arthritis at the glenohumeral joint with joint space narrowing and osteophyte formation. There are periarticular soft tissue ossifications. There is mild arthritis at the acromioclavicular joint. XR/XR shoulder LT min 2V IMPRESSION: Severe arthritis at the bilateral glenohumeral joints.
== END 2020-06-29 12:51 | disposition home or self-care (01) ==
LOC: HO.HMGCX 12:50
PROVIDERS: PCP Internal Medicine; Visit Provider Internal Medicine
DX: M25.511 Pain in right shoulder (principal); M25.512 Pain in left shoulder
CPT/HCPCS: 73030

== ENCOUNTER 2020-08-20 15:00 | Outpatient (REF) | payer OTHER, MEDICARE, SELFPAY | END 2020-08-20 15:01 | disposition home or self-care (01) | LOC: HO.HAP 15:00 | PROVIDERS: Visit Provider Internal Medicine | DX: Z13.89 Encounter for screening for other disorder (principal) ==

== ENCOUNTER 2020-10-02 15:13 | Outpatient (REF) | payer SELFPAY | END 2020-10-02 15:14 | disposition home or self-care (01) | LOC: HO.HAP 15:13 | PROVIDERS: Visit Provider Internal Medicine | DX: Z13.89 Encounter for screening for other disorder (principal) ==

== ENCOUNTER 2020-10-27 09:00 | Outpatient (REF) | payer MEDICARE, OTHER, SELFPAY ==
--- NOTE | ~2020-10-27 | MR_ITS ---
EXAMINATION: MR SHOULDER WITHOUT CONTRAST, RIGHT CLINICAL INFORMATION: Arthritis. Severe pain. COMPARISON: Right shoulder radiographs dated 06/29/2020. TECHNIQUE: MRI of the shoulder without contrast was performed on a high-field scanner. FINDINGS: ROTATOR CUFF: Supraspinatus tendinosis with anterior bursal surface partial tearing measuring 0.4 cm in AP dimension. Infraspinatus and subscapularis tendinosis. Diffuse rotator cuff muscle atrophy. BICEPS: Flattening of the proximal long head biceps tendon, consistent with longitudinal partial tearing. CORACOACROMIAL ARCH: The undersurface of the acromion is curved with no subacromial spur. [id number] acromioclavicular osteoarthritis. Fluid within the subacromial-subdeltoid bursa, consistent with mild bursitis. LABRUM/CAPSULE: Diffuse attenuation and irregularity of the glenoid labrum, consistent with degenerative tearing. GLENOHUMERAL JOINT/MARROW: Diffuse full-thickness articular cartilage loss with prominent bony remodeling and mild associated marrow edema. Large joint effusion with synovitis. Large marginal osteophytes. MR/MR shoulder RT wo con IMPRESSION: 1. Severe glenohumeral osteoarthritis with prominent bony remodeling. Large joint effusion with mild synovitis. 2. Diffuse degenerative tearing of the glenoid labrum. 3. Sqixfbje-yc-njiwsi acromioclavicular osteoarthritis. Mild subacromial-subdeltoid bursitis. 4. Supraspinatus tendinosis with anterior bursal surface partial tearing measuring 0.4 cm. Infraspinatus and subscapularis tendinosis. No full-thickness rotator cuff tendon defect. Rotator cuff muscle atrophy. 5. Longitudinal partial tearing of the intra-articular proximal long head biceps tendon.
--- NOTE | ~2020-10-27 | MR_ITS ---
EXAMINATION: MR SHOULDER WITHOUT CONTRAST, LEFT CLINICAL INFORMATION: Arthritis. Severe pain. COMPARISON: Left shoulder radiographs dated 06/29/2020. TECHNIQUE: Multisequence MR imaging of the left shoulder was obtained without contrast on a high-field strength scanner. FINDINGS: ROTATOR CUFF: Supraspinatus and infraspinatus tendinosis. Focal articular surface fraying/partial tearing of the infraspinatus tendon measuring 0.6 cm in ML dimension. Attenuation of the subscapularis tendinosis, likely indicating chronic partial tearing. Diffuse rotator cuff muscle atrophy. BICEPS: Normal. CORACOACROMIAL ARCH: The undersurface of the acromion is curved with small subacromial spurs. Moderate to severe acromioclavicular osteoarthritis. LABRUM/CAPSULE: Diffuse attenuation and irregularity of the glenoid labrum, consistent with degenerative tearing. Nondisplaced undersurface tear through the posterior labrum. Intact joint capsule. GLENOHUMERAL JOINT/MARROW: Diffuse full-thickness glenohumeral articular cartilage loss with prominent bony remodeling. Large joint effusion with mild synovitis. Large marginal osteophytes. MR/MR shoulder LT wo con IMPRESSION: 1. Severe glenohumeral osteoarthritis with prominent bony remodeling. Large joint effusion with mild synovitis. 2. Moderate to severe acromioclavicular osteoarthritis with small subacromial spurs. 3. Diffuse degenerative tearing of the labrum. Nondisplaced undersurface tear through the posterior labrum. 4. Supraspinatus and infraspinatus tendinosis with probable articular surface fraying/partial tear of the distal infraspinatus tendon. Attenuation of the subscapularis tendon, likely indicating chronic partial tearing. Rotator cuff muscle atrophy.
== END 2020-10-27 09:01 | disposition home or self-care (01) ==
LOC: HO.MRI 09:00
PROVIDERS: PCP Internal Medicine; Visit Provider Internal Medicine
DX: M19.012 Primary osteoarthritis, left shoulder (principal); M19.011 Primary osteoarthritis, right shoulder
CPT/HCPCS: 73221

== ENCOUNTER → 2020-11-03 10:51 | Outpatient (BNVA) | payer MEDICARE, OTHER, SELFPAY | PROVIDERS: PCP Internal Medicine; Referring Provider Internal Medicine; Visit Provider Internal Medicine Cardiovascular Disease | DX: I47.1 Supraventricular tachycardia (principal); I21.4 Non-ST elevation (NSTEMI) myocardial infarction | CPT/HCPCS: 99212 ==

== ENCOUNTER 2020-11-20 09:47 | Outpatient (REF) | payer SELFPAY ==
--- NOTE | 2020-11-20 13:50 | MHC.AU.HFU ---
Hearing Instrument Follow-Up- Binaural Date of Visit: 11/20/20 Right Ear: Telephone Lineman: Phonak Model: Audeo B70-R Serial Number: [id number] Repair Warranty: 12/03/2020 Battery Size: Rechargeable Color: Sand Beige Square Cutter: 2xS Type of Dome: Medium closed Type of Wax Guard: Cerustop Dispensed By: [facility] Date of Fittin09/20/2017 Left Ear: Telephone Lineman: Phonak Model: Audeo B70-R Serial Number: [id number] Repair Warranty: 12/03/2020 Battery Size: Rechargeable Color: Sand Beige Square Cutter: 2xS Type of Dome: Medium closed Type of Wax Guard: Cerustop Dispensed By: [facility] Date of Fittin09/20/2017 Follow-Up Summary: Patient brought her aids to be sent to [employer] prior to warranty expiration. Provided Loaner Audeo M 30-R with Care Support Representative (from the [employer]). Transferred last settings to the Loaner aids and reviewed use since different than her Audeo B-R aids. Patient reports ears have been very itchy and her psoriasis has increased. Otoscopy shows only dry flaky canal skin and she will follow-up with her chest painting leader. Recommendations: Reprogram to 10/02/2020 settings and Call patient to slate picker aids when received. Diagnosis Code(s): Primary Diagnosis: H90.3 Bilateral Sensorineural Hearing Loss Services Performed: [facility] Non-Quantity Charges: HANC: NonBillable Event Signature: Provider: Gatito Caba, PAM-A
== END 2020-11-20 09:48 | disposition home or self-care (01) ==
LOC: HO.HAP 09:47
PROVIDERS: Visit Provider Internal Medicine
DX: Z13.89 Encounter for screening for other disorder (principal)

== ENCOUNTER 2020-12-01 13:28 | Outpatient (REF) | payer SELFPAY | END 2020-12-01 13:29 | disposition home or self-care (01) | LOC: HO.HAP 13:28 | PROVIDERS: Visit Provider Internal Medicine | DX: Z13.89 Encounter for screening for other disorder (principal) ==

== ENCOUNTER 2021-01-04 12:22 | Outpatient (REF) | payer MEDICARE, OTHER, SELFPAY ==
--- NOTE | ~2021-01-04 | CT_ITS ---
EXAMINATION: CT CHEST WITHOUT CONTRAST CLINICAL INFORMATION: Pulmonary nodule. COMPARISON: CT chest 11/25/2019 TECHNIQUE: Multidetector volumetric CT imaging of the chest was done. Axial MIP volume rendering provided. Sagittal and coronal reformatted images were obtained. This CT examination was performed using dose optimization techniques as appropriate, variously including the following: *Automated exposure control *Adjustment of mA and/or kV according to patient size (this includes techniques or standardized protocols for targeted exams where dose is matched to indication/reason for exam; i.e. extremities or head) *Use of iterative reconstruction technique DLP: 257 mGy-cm FINDINGS: CLINICAL IMPLEMENTATION SPECIALIST: Unremarkable. LUNGS: The lungs are well expanded and clear with plate-like atelectasis or scarring in the left lung apex and left upper lobe laterally. There is a 6 mm ground-glass nodule left upper lobe axial image 23/4, stable. No additional pulmonary nodule, mass or consolidation seen. There is left basilar linear atelectasis. MEDIASTINUM: The thyroid lobes are symmetrical and normal. The central trachea and the bronchi are widely patent. The heart size and the great vessels are normal caliber. There are coronary artery calcifications. No pericardial effusion seen. PLEURA: There is no pleural effusion. No pleural mass or thickening. AXILLA: No lymphadenopathy. UPPER ABDOMEN: There is a hypodense lesion in the left hepatic lobe measuring 1.1 cm, likely small cyst. No additional lesions seen. There are punctate calcifications in the spleen, likely small granulomas. Visualized adrenal gland and the gallbladder appear unremarkable. OSSEOUS STRUCTURES: Moderate spondylosis of ventral dorsal spine is seen. No lytic or sclerotic process seen. CT/CT chest wo con IMPRESSION: 6 mm ground-glass nodule left upper lobe, stable compared to previous study 11/25/2019. No additional nodules seen. Mild atelectatic changes in both lung bases and left lung apex.
== END 2021-01-04 12:23 | disposition home or self-care (01) ==
LOC: HO.CT 12:22
PROVIDERS: PCP Internal Medicine; Visit Provider Internal Medicine
DX: R91.1 Solitary pulmonary nodule (principal)
CPT/HCPCS: 71250

== ENCOUNTER 2021-05-14 06:35 | Outpatient (REF) | payer MEDICARE, OTHER, SELFPAY ==
[2021-05-14 11:23] LABS: MANUAL DIFF FLAG NO
[2021-05-14 11:28] LABS: Basophils Percent Auto 0.4 % (0-2); Eosinophils Absolute Auto 0.2 X10*3/uL (0.0-0.4); Eosinophils Percent Auto 2.9 % (0-4); Hematocrit 29.8 % (37.0-47.0); Hemoglobin 9.3 g/dl (12.0-16.0); Imm Gran Abs Auto 0.02 X10*3/uL (0.00-0.03); Imm Gran Pct Auto 0.4 % (0.0-0.4); Lymphocytes Absolute Auto 0.8 X10*3/uL (1.2-4.9); Lymphocytes Percent Auto 14.4 % (20-40); Mean Corpuscular HGB Conc 31.2 g/dl (31.0-35.0); Mean Corpuscular Hemoglobin 28.5 pg (27.0-33.0); Mean Corpuscular Volume 91.4 fL (80.0-98.0); Mean Platelet Volume 9.7 fL (9.4-12.3); Monocytes Absolute Auto 0.5 X10*3/uL (0.1-1.2); Monocytes Percent Auto 9.2 % (2-11); Neutrophils Absolute Auto 3.8 x10*3/uL (2.0-8.3); Neutrophils Percent Auto 72.7 % (45-73); Platelet Count 336 X10*3/uL (160-400); Red Blood Count 3.26 X10*6/uL (4.20-5.50); Red Cell Distribution Width 14.6 % (11.0-16.0); White Blood Count 5.2 X10*3/uL (4.8-10.8)
== END 2021-05-14 06:36 | disposition home or self-care (01) ==
LOC: HO.HMGCLDS 06:35
PROVIDERS: Visit Provider Internal Medicine
DX: D64.9 Anemia, unspecified (principal)
CPT/HCPCS: 36415; 85025

== ENCOUNTER 2021-06-29 11:17 | Outpatient (REF) | payer SELFPAY | END 2021-06-29 11:18 | disposition home or self-care (01) | LOC: HO.HAP 11:17 | PROVIDERS: Visit Provider Internal Medicine | DX: Z46.1 Encounter for fitting and adjustment of hearing aid (principal); H90.3 Sensorineural hearing loss, bilateral | CPT/HCPCS: V5014 ==

== ENCOUNTER → 2021-10-26 10:46 | Outpatient (BNVA) | payer MEDICARE, OTHER, SELFPAY | PROVIDERS: PCP Internal Medicine; Visit Provider Internal Medicine Cardiovascular Disease | DX: I47.1 Supraventricular tachycardia (principal); I10 Essential (primary) hypertension | CPT/HCPCS: 93005; 99212 ==

== ENCOUNTER 2021-12-13 10:20 | Outpatient (REF) | payer MEDICARE, OTHER, SELFPAY ==
[2021-12-13 11:17] LABS: MANUAL DIFF FLAG NO
[2021-12-13 11:38] LABS: Basophils Percent Auto 0.7 % (0-2); Eosinophils Absolute Auto 0.2 X10*3/uL (0.0-0.4); Eosinophils Percent Auto 3.2 % (0-4); Hemoglobin 9.7 g/dl (12.0-16.0); Imm Gran Abs Auto 0.03 X10*3/uL (0.00-0.03); Imm Gran Pct Auto 0.5 % (0.0-0.4); Lymphocytes Absolute Auto 0.9 X10*3/uL (1.2-4.9); Lymphocytes Percent Auto 14.5 % (20-40); Mean Corpuscular HGB Conc 33.4 g/dl (31.0-35.0); Mean Corpuscular Hemoglobin 30.3 pg (27.0-33.0); Mean Corpuscular Volume 90.6 fL (80.0-98.0); Mean Platelet Volume 10.3 fL (9.4-12.3); Monocytes Absolute Auto 0.6 X10*3/uL (0.1-1.2); Monocytes Percent Auto 9.2 % (2-11); Neutrophils Absolute Auto 4.3 x10*3/uL (2.0-8.3); Neutrophils Percent Auto 71.9 % (45-73); Platelet Count 247 X10*3/uL (160-400); Red Cell Distribution Width 13.5 % (11.0-16.0)
== END 2021-12-13 10:21 | disposition home or self-care (01) ==
LOC: HO.HMGCLDS 10:20
PROVIDERS: PCP Internal Medicine; Visit Provider Internal Medicine
DX: D64.9 Anemia, unspecified (principal)
CPT/HCPCS: 36415; 85025

== ENCOUNTER 2022-01-10 09:35 | Outpatient (REF) | payer MEDICARE, OTHER, SELFPAY ==
[2022-01-10 11:30] LABS: MANUAL DIFF FLAG NO
[2022-01-10 11:51] LABS: Eosinophils Absolute Auto 0.1 X10*3/uL (0.0-0.4); Eosinophils Percent Auto 3.2 % (0-4); Hematocrit 37.1 % (37.0-47.0); Hemoglobin 12.2 g/dl (12.0-16.0); Imm Gran Abs Auto 0.01 X10*3/uL (0.00-0.03); Imm Gran Pct Auto 0.2 % (0.0-0.4); Lymphocytes Absolute Auto 0.9 X10*3/uL (1.2-4.9); Lymphocytes Percent Auto 21.8 % (20-40); Mean Corpuscular HGB Conc 32.9 g/dl (31.0-35.0); Mean Corpuscular Hemoglobin 30.5 pg (27.0-33.0); Mean Corpuscular Volume 92.8 fL (80.0-98.0); Mean Platelet Volume 10.4 fL (9.4-12.3); Monocytes Absolute Auto 0.4 X10*3/uL (0.1-1.2); Monocytes Percent Auto 10.1 % (2-11); Neutrophils Absolute Auto 2.6 x10*3/uL (2.0-8.3); Neutrophils Percent Auto 63.7 % (45-73); Platelet Count 225 X10*3/uL (160-400); Red Cell Distribution Width 13.4 % (11.0-16.0)
== END 2022-01-10 09:36 | disposition home or self-care (01) ==
LOC: HO.HMGCLDS 09:35
PROVIDERS: PCP Internal Medicine; Visit Provider Internal Medicine
DX: D64.9 Anemia, unspecified (principal)
CPT/HCPCS: 36415; 85025

== ENCOUNTER 2022-03-11 10:29 | Outpatient (REF) | payer SELFPAY | END 2022-03-11 10:30 | disposition home or self-care (01) | LOC: HO.HAP 10:29 | PROVIDERS: Visit Provider Internal Medicine | DX: Z13.89 Encounter for screening for other disorder (principal) ==

== ENCOUNTER 2022-03-28 10:25 | Outpatient (REF) | payer OTHER, SELFPAY | END 2022-03-28 10:26 | disposition home or self-care (01) | LOC: HO.HAP 10:25 | PROVIDERS: Visit Provider Internal Medicine | DX: Z46.1 Encounter for fitting and adjustment of hearing aid (principal); H90.3 Sensorineural hearing loss, bilateral | CPT/HCPCS: V5014 ==

== ENCOUNTER 2022-05-05 13:11 | Outpatient (REF) | payer MEDICARE, OTHER, SELFPAY ==
--- NOTE | ~2022-05-05 | XR_ITS ---
EXAMINATION: XR CHEST CLINICAL INFORMATION: Congestion. COMPARISON: None available. TECHNIQUE: 2 views of the chest were obtained. FINDINGS: Lungs are well-expanded and clear of acute process. There is platelike atelectasis left lung base. Heart size and pulmonary vascularity is normal. There are bilateral shoulder prostheses in place. XR/XR chest 2V IMPRESSION: Left lung base platelike atelectasis.
== END 2022-05-05 13:12 | disposition home or self-care (01) ==
LOC: HO.HMGCX 13:11
PROVIDERS: PCP Internal Medicine; Visit Provider Internal Medicine
DX: R09.89 Other specified symptoms and signs involving the circulatory and respiratory systems (principal)
CPT/HCPCS: 71046

== ENCOUNTER 2022-05-12 09:34 | Outpatient (REF) | payer MEDICARE, OTHER, SELFPAY ==
--- NOTE | ~2022-05-12 | XR_ITS ---
EXAMINATION: XR CHEST CLINICAL INFORMATION: Coughing congestion COMPARISON: May 05, 2022 TECHNIQUE: 2 views of the chest were obtained. FINDINGS: There is linear scarring again seen at the lung bases. No acute confluent disease is seen. No pneumothorax or pleural effusion. Heart normal size. No evidence of pulmonary edema. Status post bilateral shoulder arthroplasty. XR/XR chest 2V IMPRESSION: No acute disease.
== END 2022-05-12 09:35 | disposition home or self-care (01) ==
LOC: HO.HMGCX 09:34
PROVIDERS: PCP Internal Medicine; Visit Provider Internal Medicine
DX: R05.9 Cough, unspecified (principal)
CPT/HCPCS: 71046

== ENCOUNTER 2022-05-12 10:52 | Outpatient (REF) | payer MEDICARE, OTHER, SELFPAY | END 2022-05-12 10:53 | disposition home or self-care (01) | LOC: HO.SH 10:52 | PROVIDERS: Visit Provider Internal Medicine | DX: Z01.118 Encounter for examination of ears and hearing with other abnormal findings (principal); H90.3 Sensorineural hearing loss, bilateral | CPT/HCPCS: 92557 ==

== ENCOUNTER 2022-05-12 11:50 | Outpatient (REF) | payer SELFPAY ==
--- NOTE | 2022-05-12 13:57 | MHC.AU.HA3 ---
Hearing Instrument Follow-Up- Binaural Date of Visit: 05/12/22 Right Ear: Eliu, , Color, Serial Number: Angel Ball 70-R Shoshana Schaffer Serial #[id number] Supervisor Riveting Repair Warranty: 03/18/2023 Supervisor Riveting Loss and Damage Warranty: 12/03/2020 Battery Size: Rechargeable Discharge Planner/Slim Tube: 2xS Earmold/Dome/CShell/SlimTip:Medium vented dome Type of Wax Guard: Cerustop Dispensed By: [facility] Date of Fittin09/20/2017 Left Ear: Eliu, , Color, Serial Number: Angel Ball 70-R Shoshana Schaffer Serial #[id number] Supervisor Riveting Repair Warranty: 12/03/2020 Supervisor Riveting Loss and Damage Warranty: 12/03/2020 Battery Size: Rechargeable Discharge Planner/Slim Tube: 2xS Earmold/Dome/CShell/SlimTip: Medium vented dome Type of Wax Guard: Cerustop Dispensed By: [facility] Date of Fittin09/20/2017 Follow-Up Summary: She reported that she seems to be continuously increasing the volume of her hearing aids. Cleaned hearing aids. Reprogrammed based on updated audiogram (see separate report) using real ear measurements. Significant increase in overall gain compared to previous settings. Set to 80% gain level due to perceived loudness. She noted an immediate improvement in clarity and is satisfied with programming adjustments. No feedback noted in office. Advised to return within 2-3 weeks, if needed, to be covered under today's programming fee. Paid $90.00 Recommendations: Hearing instrument maintenance in 6 months, or sooner if needed. Please contact our clinic with any questions or concerns. Diagnosis Code(s): Primary Diagnosis: H90.3 Bilateral Sensorineural Hearing Loss Signature: Provider: Lizette Ledezma, [facility]
== END 2022-05-12 11:51 | disposition home or self-care (01) ==
LOC: HO.HAP 11:50
PROVIDERS: Visit Provider Internal Medicine
DX: Z46.1 Encounter for fitting and adjustment of hearing aid (principal); H90.3 Sensorineural hearing loss, bilateral
CPT/HCPCS: V5020

== ENCOUNTER 2022-05-16 10:45 | Outpatient (REF) | payer SELFPAY ==
--- NOTE | 2022-05-16 11:23 | MHC.AU.HA3 ---
Hearing Instrument Follow-Up- Binaural Date of Visit: 05/16/22 Right Ear: Model Eliu, Color, Serial Number: Angel Ball 70-R Shoshana Schaffer Serial #[id number] Political Analyst Repair Warranty: Renewed due to repair: 03/18/2023 Political Analyst Loss and Damage Warranty: 12/03/2020 [facility] Service Plan: Battery Size: Rechargeable Petrologist/Slim Tube: 2xS Earmold/Dome/CShell/SlimTip:Medium vented dome Type of Wax Guard: Cerustop Dispensed By: [facility] Date of Fittin09/20/2017 Left Ear: Model Eliu, Color, Serial Number: Angel Ball 70-R Shoshana Schaffer Serial #[id number] Political Analyst Repair Warranty: 12/03/2020 Political Analyst Loss and Damage Warranty: 12/03/2020 [facility] Service Plan: Battery Size: Rechargeable Petrologist/Slim Tube: 2xS Earmold/Dome/CShell/SlimTip: Medium vented dome Type of Wax Guard: Cerustop Dispensed By: [facility] Date of Fittin09/20/2017 Follow-Up Summary: She reported that since the last programming adjustments, certain sounds/voices, particularly the TV news broadcast and her son's voice, are too tinny. Even when she manually adjusts the volume of the hearing aids, she cannot find an acceptable level. Decreased the high frequencies. She reported that the sound quality is smoother and more comfortable. Recommendations: Hearing instrument maintenance in 6 months, or sooner if needed. Please contact our clinic with any questions or concerns. Patient will call if problems persist. Diagnosis Code(s): Primary Diagnosis: H90.3 Bilateral Sensorineural Hearing Loss Signature: Provider: Lizette Ledezma, [facility]
== END 2022-05-16 10:46 | disposition home or self-care (01) ==
LOC: HO.HAP 10:45
PROVIDERS: Visit Provider Internal Medicine
DX: Z13.89 Encounter for screening for other disorder (principal)

== ENCOUNTER 2022-12-15 10:31 | Outpatient (REF) | payer SELFPAY | END 2022-12-15 10:32 | disposition home or self-care (01) | LOC: HO.HAP 10:31 | PROVIDERS: Visit Provider Internal Medicine | DX: Z13.89 Encounter for screening for other disorder (principal) ==

== ENCOUNTER 2023-01-05 07:55 | Outpatient (REF) | payer MEDICARE, OTHER, SELFPAY ==
--- NOTE | 2023-01-05 10:47 | MHC.AU.HA3 ---
Hearing Instrument Follow-Up- Binaural Date of Visit: 01/05/23 Right Ear: Model Eliu, Color, Serial Number: Angel Mitchell B 70-R SN: [id number] Color: Shoshana Schaffer Manager Field Investigations Repair Warranty: Renewed due to repair: 03/18/2023 Manager [employer] Investigations Loss and Damage Warranty: 12/03/2020 Battery Size: Rechargeable Shelver/Slim Tube: 2xS Earmold/Dome/CShell/SlimTip:Medium vented dome (no retention tail) Type of Wax Guard: Cerustop Dispensed By: [facility] Date of Fittin09/20/2017 Left Ear: Model Eliu, Color, Serial Number: Angel Mitchell B 70-R SN: [id number] Color: Shoshana Beefra Manager Field Investigations Repair Warranty: 12/03/2020 Manager Field Investigations Loss and Damage Warranty: 12/03/2020 Battery Size: Rechargeable Shelver/Slim Tube: 2xS Earmold/Dome/CShell/SlimTip: Medium vented dome (no retention tail) Type of Wax Guard: Cerustop Dispensed By: [facility] Date of Fittin09/20/2017 Follow-Up Summary: She returned for routine hearing aid maintenance following updated hearing test. She reported that she had recently stopped wearing her hearing aids because there was static noise in the left hearing aid. She dropped it off on 12/15/2022 - it was cleaned and appeared to be working well otherwise in office. However, She continued to notice static. She determined that if she moved the train operator a certain way the static would subside. Cleaned both hearing aids in office. Listened to both hearing aids, moving the train operator wire; however, could not replicate any static in office. She reported she did not hear the static in office today either. The left volume button is also not functioning so She has no way to decrease the volume of the hearing aids. Discussed options including sending left hearing aid for repair. Quoted $385.00. Also briefly discussed new hearing aids. She opted to continue using the hearing aids as is for now. If issues with static in the left hearing aid return or she decides she wanted the left volume button repaired, she will drop off the hearing aid to be sent to the outboard system operator for repair. Recommendations: Hearing instrument follow-up or maintenance as needed. Please contact our clinic with any questions or concerns. Diagnosis Code(s): Primary Diagnosis: H90.3 Bilateral Sensorineural Hearing Loss Signature: Provider: Lizette Ledezma, [facility]
== END 2023-01-05 07:56 | disposition home or self-care (01) ==
LOC: HO.SH 07:55
PROVIDERS: Visit Provider Internal Medicine
DX: Z01.118 Encounter for examination of ears and hearing with other abnormal findings (principal); H90.3 Sensorineural hearing loss, bilateral
CPT/HCPCS: 92552; 92556

== ENCOUNTER 2023-02-07 07:20 | Outpatient (REF) | payer MEDICARE, OTHER, SELFPAY ==
--- NOTE | ~2023-02-07 | CT_ITS ---
CT SINUS WITHOUT CONTRAST HISTORY: Chronic sinusitis TECHNIQUE: CT images of the paranasal sinuses were acquired without contrast. This CT examination was performed using dose optimization techniques as appropriate, variously including the following: *Automated exposure control *Adjustment of mA and/or kV according to patient size (this includes techniques or standardized protocols for targeted exams where dose is matched to indication/reason for exam; i.e. extremities or head) *Use of iterative reconstruction technique DLP: 97.09 mGy-cm COMPARISON: None available FINDINGS: NASAL CAVITY: The nasal septum is relatively midline. The cribriform plate is intact. The lateral lamella and fovea ethmoidalis are symmetric. FRONTAL SINUS: Right: Mild mucosal thickening. The outflow tract is patent. Left: The frontal sinus is clear. The frontal outflow tract is patent. ETHMOID AIR CELLS: Right: Mild anterior and posterior ethmoid air cell mucosal thickening. Left: Mild anterior and posterior ethmoid air cell mucosal thickening. SPHENOID SINUS: Right: Trace mucosal thickening near the ostium which is narrowed but patent. Left: Trace mucosal thickening. The outflow tract is patent. MAXILLARY SINUS: Right: Mild polypoid mucosal thickening. The outflow tract is patent. Left: Trace mucosal thickening inferiorly. The outflow tract is patent. OTHER: The intracranial structures are unremarkable on these low mAs images. The mastoid air cells and middle ear clefts are clear. Multiple missing maxillary teeth. CT/CT sinus wo IV con IMPRESSION: Mild scattered paranasal sinus mucosal thickening as described above. No air-fluid levels to indicate acute sinusitis.
== END 2023-02-07 07:21 | disposition home or self-care (01) ==
LOC: HO.CT 07:20
PROVIDERS: PCP Internal Medicine; Visit Provider Internal Medicine
DX: J32.9 Chronic sinusitis, unspecified (principal)
CPT/HCPCS: 70486

== ENCOUNTER 2023-11-24 08:40 | Outpatient (AMB) | payer MEDICARE, OTHER, SELFPAY ==
--- NOTE | 2023-11-24 08:43 | MHC.OFFVIS ---
Vital Signs 11/24/23 08:44 Height 5 ft 5 in Weight 229 lb 4.492 oz BMI 38.2 BP 136/78 Blood Pressure Location Lt brachial Position Sitting Pulse 64 Intake Visit Reasons: 1 yearly appt Intake Note: 1 year follow-up with ekg c/o fatigue Crystallography Teacher Required: No Allergies Nagemdj-KCS-WmU Reductase Inhibitor [[id number]-OOH-OBM REDUCTASE INHIBITOR] Allergy (Unknown, Verified 11/25/19 14:50) PSEUDO ARHTITIS,ENZYMES sulindac Allergy (Verified 02/02/20 08:57) Itching ibuprofen [From ADV[facility]] Adverse Reaction (Unknown, Verified 11/25/19 14:50) AGITATED Medication List - Last Reconciled 11/24/23 by Peter Lewis MD alendronate 70 mg PO QWEEK apremilast (Otezla) 30 mg PO BID calcipotriene 0.005% mL topical BID calcium carbonate-vitamin D3 600 mg-5 mcg (200 unit) 1 tab PO DAILY celecoxib 200 mg PO BID clobetasol 0.05% grams topical BID ezetimibe 10 mg PO DAILY ferrous sulfate 325 mg PO DAILY fluticasone propionate 50 mcg/actuation 2 sprays intranasal DAILY gemfibrozil 600 mg PO BID losartan 50 mg PO DAILY HPI Comments Details: She comes for follow-up. She has not had any recurrent episodes of prolonged palpitations. She complains of fatigue some shortness of breath exertion. She thinks this is probably related to aging. She says she does not exercise much. Denies any orthopnea, PND, leg edema. Denies any abdominal distension. No lightheadedness, syncope. Denies any exertional chest pain. [facility] Medical History NSTEMI (non-ST elevated myocardial infarction) SVT (supraventricular tachycardia) Urinary incontinence Osteoporosis Sinus tachycardia Hyperlipidemia Hypertension Anemia Surgical History Total knee replacement status Hx of arthroscopic knee surgery Family History Other CAD (coronary artery disease) Social History Household Members: None Housing: House Do you presently have visiting nurse or other home services: No Alcohol intake: never service: No Current occupational status: retired Review of Systems Const Denies chills, Denies fatigue, Denies fever(s), Denies frequent falls, Denies weakness, Denies weight gain and Denies weight loss ENT Denies dizziness Card Denies chest pain, Denies leg edema, Denies lightheadedness, Denies palpitations, Denies dyspnea, Denies dyspnea on exertion, Denies orthopnea and Denies other (loss of consciousness) Resp Denies cough, Denies dyspnea and Denies dyspnea on exertion GI Denies hematochezia and Denies change in stool character Musc Denies abnormal gait, Denies muscle weakness, Denies numbness, Denies radiating pain into limb and Denies tingling Neuro Denies abnormal gait, Denies dizziness, Denies frequent falls, Denies numbness, Denies tingling and Denies weakness Endo Denies fatigue and Denies palpitations Physical Exam Vital Signs: Last Vital Signs Pulse 64 11/24/23 08:44 BP 136/78 11/24/23 08:44 BMI result Body Mass Index 38.2 Const General: cooperative, comfortable, no acute distress, alert, awake and well groomed Nutritional Appearance: obese Orientation/consciousness: patient oriented x3 Limitations: ambulation with cane Neck Neck: Yes trachea midline, Yes supple and Yes no JVD Resp Effort & Inspection: normal respiratory effort Auscultation: clear to auscultation bilaterally Cardio Jugular venous distension: no JVD Palpation: normal PMI Rate: regular rate Rhythm: regular rhythm Heart sounds: S1 normal heart sound present and S2 normal heart sound present GI Auscultation: normal bowel sounds Neuro General: patient oriented x3 and no focal motor deficits Extrem General: Yes no clubbing, cyanosis or edema Psych Appearance: grossly normal Office Procedures EKG Details: EKG shows normal sinus rhythm with low-voltage QRS with poor R-wave progression [id number], Complete Assessment & Plan Assessment & Plan (1) SOB (shortness of breath): Code(s): R06.02 - Shortness of breath Plan: Patient with decreasing exercise capacity with shortness of breath and fatigue. Need to rule out structural heart abnormality. Would suggest a vasodilating myocardial perfusion imaging to evaluate for myocardial ischemia as well as an echocardiogram to evaluate LV systolic and diastolic function to evaluate for valvular abnormality. These tests will be scheduled in near future. Further treatment based on the findings. (2) SVT (supraventricular tachycardia): Code(s): I47.1 - Supraventricular tachycardia Category: Medical Plan: SVT status post ablation without any recurrent episodes at this point time. No need for additional therapy. Vagal maneuvers were discussed. Avoidance of stimulants was discussed. (3) Hypertension: Code(s): I10 - Essential (primary) hypertension Category: Medical Plan: Hypertension which is currently well optimized advised to monitor blood pressure at home maintain a log. Goal blood pressure less than 130/84. Importance of good blood pressure control was discussed. Low-salt diet was discussed. Encouraged to participate in regular physical activity and weight loss. Continue management of lipids with target goal LDL less than 100 mg/dL. Will follow up in the clinic in 2 years time, sooner p.r.n.. Thank you for allowing me to partake in her care Orders: Orders CA lexiscan stress w chance Today R06.02 - Shortness of breath CA echo transthoracic complete Today I10 - Essential (primary) hypertension, R06.02 - Shortness of breath Coding Level of Care Code Est Pt Level 4 (25079) Diagnoses SOB (shortness of breath) R06.02 SVT (supraventricular tachycardia) I47.1 Hypertension I10 CPT Codes EKG - CPT: 81117-[id number], Complete ([id number])
[2023-11-24 08:44] VITALS: BP 136/78; PULSE 64; BMI 38.2
== END 2023-11-24 09:02 | disposition home or self-care (01) ==
PROVIDERS: PCP Internal Medicine; Visit Provider Internal Medicine Cardiovascular Disease
DX: R06.02 Shortness of breath (principal); I47.10 Supraventricular tachycardia, unspecified; I10 Essential (primary) hypertension
CPT/HCPCS: 93010; 99214

== ENCOUNTER → 2023-11-24 08:40 | Outpatient (BNVA) | payer MEDICARE, OTHER, SELFPAY | PROVIDERS: PCP Internal Medicine; Visit Provider Internal Medicine Cardiovascular Disease | DX: I10 Essential (primary) hypertension (principal); I47.10 Supraventricular tachycardia, unspecified; R53.83 Other fatigue; R06.02 Shortness of breath | CPT/HCPCS: 93005; 99212 ==

== ENCOUNTER → 2023-12-18 13:29 | Outpatient (REF) | payer MEDICARE, OTHER, SELFPAY ==
--- NOTE | 2023-12-18 13:33 | CA_ITS ---
Transthoracic Echocardiogram Patient (Last, First, Middle): She Joe E Gender: Female Date of : 1940 Age: 83 Procedure Date: 12/18/2023 Procedure Type: Transthoracic Echocardiogram Location: OP Height: 167.64 cm Weight: 88.45 kg BSA: 1.98 m2 Heart Rate: bpm BP: 130 / 80 mmHg Knot Tying Operator: Referring MD: Peter Lewis MD Symptoms: R06.02 - Shortness of breath Study Quality: Adequate ECG Rhythm: Sinus Conclusions: - The left ventricular systolic function is hyperdynamic. The visually estimated ejection fraction is >70%. - There is severely increased left ventricular wall thickness. - No obvious valvular pathology seen on this study. - There is mild dilatation of the ascending aorta measuring 4.00 cm. Findings Left Ventricle Normal left ventricular cavity size. There is severely increased left ventricular wall thickness. The left ventricular systolic function is hyperdynamic. The visually estimated ejection fraction is >70%. There is no evidence of regional wall motion abnormalities. Evidence suggests grade I (mild) diastolic dysfunction. Right Ventricle Normal right ventricular cavity size and systolic function. Atria Both atria are normal in size. Aortic Valve The aortic valve was not well visualized. There is no aortic valve stenosis. There is no aortic valve regurgitation. Mitral Valve The mitral valve appears normal. There is no mitral valve regurgitation. There is no mitral valve stenosis. Pulmonic Valve The pulmonic valve is likely normal. Tricuspid Valve There is trace tricuspid valve regurgitation. There is no evidence of pulmonary hypertension. Great Vessels There is mild dilatation of the ascending aorta measuring 4.00 cm. Venous The inferior vena cava is normal in size. Pericardium/Pleural There is no evidence of pericardial effusion. Prior Study Comparison Changes noted compared to prior study dated: 10/31/2019. see comment on LVH. Recommendations, Care & Conclusions No obvious valvular pathology seen on this study. Measurements 2D Linear Measurements IVSd: 1.59 0.6-0.9/0.6-1.0 cm LVIDd: 3.58 3.9-5.3/4.2-5.9 cm LVIDd Index: 1.81 2.4-3.2/2.2-3.1 cm/m2 LVIDs: 2.51 2.0-3.6 cm LVPWd: 1.51 0.7-1.1 cm Ao Root: 3.60 2.1-3.5 cm LA Diam: 3.90 2.7-3.8/3.0-4.0 cm LAIDs Index: 1.97 1.5-2.3 cm/m2 LV Mass: 262.28 67-162/88-224 g LV Mass Index: 132.47 43-95/49-115 g/m2 LVOT Diam: 2.40 3.0+(-)1.3 cm 2D Systolic Function EF 4C: 78.80 >55% EF 2C: 74.00 >55% EF BiP: 75.20 >55% Mitral Valve MV Pk E: 0.69 MV PK A: 1.12 MV Decel Time: 165.00 E/A: 0.60 E'Lateral: 4.90 E'Medial: 4.13 E/E' Med: 16.60 E/E' Lat: 14.00 PHT: 48.00 MVA PHT: 4.58 Decel [place]: 4.14 Aortic Valve AoV Pk Vince: 1.15 AoV Pk Grad: 5.00 LVOT LVOT Pk Vince: 1.10 LVOT Mn Vince: 0.70 LVOT VTI: 0.26 LVOT Pk Grad: 5.00 LVOT Mn Grad: 2.00 LVOT Diam: 2.40 LVOT Area: 4.52 Diastolic Function MV Pk E: 0.69 MV Pk A: 1.12 E/A: 0.60 E'Medial: 4.13 E/E' Med: 16.60 E' Laterial: 4.90 E/E' Lat: 14.00 Right Ventricle TAPSE (mm): 24.00 TVS' Vince: 11.00 Tricuspid Valve TR Pk Vince: 1.58 TR Pk Grad: 10.00 RA Press: 3.00 RVSP: 13.00 Great Vessels Aorta Ao Root-2D: 3.60 2.0-3.7 cm Ao Asc: 4.00 2.1-3.4 cm Pulmonary Valve PV Pk Vince: 1.16 Peak PV Grad: 5.00 Updated in Other Vendor System with Status of Final Wai Purcell MD electronically signed on 12/19/2023 12:45:36 PM with status of Final
== END ==
LOC: HO.CARD 13:29
PROVIDERS: PCP Internal Medicine; Visit Provider Internal Medicine Cardiovascular Disease
DX: R06.02 Shortness of breath (principal); I10 Essential (primary) hypertension
CPT/HCPCS: 93306

== ENCOUNTER → 2023-12-18 13:33 | Outpatient (BNV) | payer MEDICARE, OTHER, SELFPAY | PROVIDERS: PCP Internal Medicine; Visit Provider Internal Medicine | DX: R06.02 Shortness of breath (principal); I51.89 Other ill-defined heart diseases; I77.810 Thoracic aortic ectasia | CPT/HCPCS: 93306 ==

== ENCOUNTER → 2024-01-30 09:49 | Outpatient (REF) | payer MEDICARE, OTHER, SELFPAY ==
--- NOTE | ~2024-01-30 | NM_ITS ---
Lexiscan Myocardial perfusion study Indication: Shortness of breath to evaluate for myocardial ischemia Technique: The patient was brought in for a Lexiscan perfusion study on 01/30/2024 and was injected 0.4 mg of Lexiscan intravenously. Within a minute of this injection 30 mCi of sestamibi was given intravenously. Images were obtained using the SPECT gamma camera interlaced with the gating device. Images were obtained in supine position. Resting perfusion study was performed on 01/31/2024. Patient was administered 30 mCi of sestamibi intravenously at rest. Images were then obtained in supine position. Images obtained with and without CT attenuation. Total DLP 189 mGy-cm. Images were processed with the software and compared side to side in short axis, horizontal long axis and vertical long axis views. Findings: The stress perfusion study showed nonattenuated images show mildly reduced uptake in the basal inferior as well as apical anterior wall of the LV myocardium. Remainder of the LV myocardium is normally perfused. Attenuated corrected images show overall normal uptake of radiotracer in all segments of the LV myocardium. There is suggestion of left ventricular hypertrophy. The gated study shows normal LV systolic function with calculated LVEF of 62%. LV cavity is normal in size. The gated study shows normal systolic wall thickening and contraction of segments. Resting study shows nonattenuated images show no change in perfusion pattern compared to stress perfusion study. Gating at rest reveals normal systolic wall motion with ejection fraction at 68%. The findings are consistent with no clear reversible defect suggestive of ischemia. NM/NM chance perf SPECT rest & str Impression: 1. Myocardial perfusion imaging study shows likely normal myocardial perfusion 2. Gated LVEF is 62% 3. Transient ischemic dilatation not present Nondiagnostic changes on EKG. Electronically signed by: Peter Lewis MD 02/01/2024 08:10 AM [facility]
--- NOTE | 2024-01-30 09:52 | CA_ITS ---
Acquisition Time: 2024-01-30 10:00:43 Total Exercise Time: 00:02:00 Test Indications: Dyspnea Medications: SEE H Protocol: LEXISCAN Max HR: 111 BPM 79% of Pred: 139 BPM Max BP: 120/070 mmHG Max Work Load: 1.0 METS Pharmacologic stress test with Lexiscan while pt marches in her chair, with reports of feeling warm and nauseated, without any anginal symptoms, without any arrythmias, with normotensive response to injection. Nondiagnostic EKG for ischemia. In recovery, pt feeling back to baseline. Nuclear images pending. Test reviewed with Dr. Lewis. Referred By: Peter Lewis Overread By: TROY CHAUDHARY
== END ==
LOC: HO.CARD 09:49
PROVIDERS: PCP Internal Medicine; Visit Provider Internal Medicine Cardiovascular Disease
DX: R06.02 Shortness of breath (principal)
CPT/HCPCS: 78452; 93017; A9500; J0280; J2785

== ENCOUNTER → 2024-01-30 09:52 | Outpatient (BNV) | payer MEDICARE, OTHER, SELFPAY | PROVIDERS: PCP Internal Medicine; Visit Provider Nurse Practitioner Family | DX: R06.00 Dyspnea, unspecified (principal) | CPT/HCPCS: 78452; 93016; 93018 ==

== ENCOUNTER 2024-12-25 20:11 | Emergency (ER) | payer MEDICARE, OTHER, SELFPAY ==
[2024-12-25 20:19] VITALS: BP 171/88; BP 179/108; PULSE 88; PULSE 97; RESP 20; TEMP 36.9; O2SAT 97; BMI 36.4
--- OUTSIDE RECORDS SUMMARY | 2024-12-25 20:43 | XMS_ITS | Clinical Summary ---
Author Organization [facility] Address [address] [place] [address] Phone Care Team Providers Care Log Carrier Operator Name Role Phone Sidney Campo MD Primary Care Provider [phone] Encounters Date Type Department Care Team Description 12/03/2024 9:29 AM EDT - 12/03/2024 11:59 PM EDT Hospital Encounter [facility] Xray [address] [place] [address] Elizabeth Negrete, CARDIOTHORACIC PHYSIOTHERAPIST Dysphagia, oropharyngeal phase Discharge Disposition: Home or Self Care from Last 3 Months Social History Tobacco Use Types Packs/Day Years Used Date Smoking Tobacco: Never Assessed Comments Unknown Sex and Gender Information Value Date Recorded Sex Assigned at Female 11/25/2024 5:03 PM EDT Legal Sex Female 9:49 PM EST Gender Identity Female 11/25/2024 5:03 PM EDT Sexual Orientation Straight 11/25/2024 5: 03 PM EDT Plan of Treatment Health Maintenance Due Date Last Done Comments Cholesterol Screening (Lipid Panel) 01/22/2022 Falls Risk Assessment 01/22/2022 Medicare Annual Wellness Visit 01/22/2022 Social Influencers of Health Screening 01/22/2022 Depression Screening 02/21/2024 COVID-19 Vaccine ( season) 2024 04/30/2020, 04/02/2020 Hypertension/CHF/CAD Annual BMP Blood Test 12/03/2024 Osteoporosis Screening (Bone Density Screening) 09/18/2030 09/18/2020, 09/16/2019 DTaP,Tdap,and Td Vaccines (4 - Td or Tdap) 07/10/2034 07/10/2024, 10/07/2005, 02/20/1995 Zoster Vaccines Completed 08/30/2022, 05/24/2022 Pneumococcal Vaccine: 50+ Years Completed 04/29/2024 RSV Immunization Adult Patients Completed 04/29/2024 Influenza Vaccine Completed 11/08/2024, , 12/10/2021, Additional history exists HIB Vaccines Aged Out No longer eligi ble based on patient's age to complete this topic HPV Vaccines Aged Out No longer eligi ble based on patient's age to complete this topic Hepatitis A Vaccines Aged Out No long er eligible based on patient's age to complete this topic Hepatitis B Vaccines Aged Out No long er eligible based on patient's age to complete this topic IPV Vaccines Aged Out No longer eligi ble based on patient's age to complete this topic MMR Vaccines Aged Out No longer eligi ble based on patient's age to complete this topic Meningococcal ACWY Vaccine Aged Out N o longer eligible based on patient's age to complete this topic Meningococcal B Vaccine Aged Out No l onger eligible based on patient's age to complete this topic RSV Immunization Patients Under 20 months Aged Out No longer eligible based on patient's age to complete this topic Varicella Vaccines Aged Out No longer eligible based on patient's age to complete this topic Procedures Procedure Name Priority Date/Time Associated Diagnosis Comments CARDIOTHORACIC PHYSIOTHERAPIST VIDEOFLUOROSCOPIC SWALLOW STUDY WITH BARIUM Routine 12/03/2024 10:15 AM EDT Dysphagia, oropharyngeal phase XR BARIUM SWALLOW WITH VIDEO AND SPEECH Routine 12/03/2024 10:12 AM EDT Dysphagia, oropharyngeal phase KAYA DEXA AXIAL SKELETON Routine 09/19/19 11:20 AM EDT Other specified disorders of bone density and structure, multiple sites from Last 3 Months or Most Recently Relevant to Health Maintenance Results * CARDIOTHORACIC PHYSIOTHERAPIST videofluoroscopic swallow study with barium (12/03/2024 10:15 AM EDT) Elizabeth Sharp, SAMANTHA - 12/03/2024 10:15 AM EDT SAMANTHA Moran 12/03/2024 3:25 PM Speech/Language Pathology OUTPATIENT MODIFIED BARIUM SWALLOW STUDY/ VIDEOFLUOROSCOPIC EVALUATION OF THE SWALLOW NAME: She Barakat DATE OF : 1940 DATE: 12/03/2024 RECOMMENDATIONS: Recommendations/Treat Recommendations Comment: Dysphagia therapy Solid Consistency: IDDSI Level 7 Regular Liquid Consistency: Thin liquids Liquid Administration Via: Cup, Straw Recommended Medication Route: PO Recommended Medication Administration: One pill at a time Compensations: Small sips/bites, Slow rate, Alternating liquids and solids Postural Changes and/or Swallow Maneuvers: Upright TREATMENT RECOMMENDATIONS: Patient would benefit from Outpatient CARDIOTHORACIC PHYSIOTHERAPIST Services following this Instrumental Assessment Summary and Impressions: She Barakat is a 84 y.o. who presents with Mild Oropharyngeal dysphagia characterized by decreased base of tongue retraction and hyolaryngeal elevation/excursion causing pharyngeal residue. Patient also with delay of Pharyngeal-esophageal opening causing pyriform sinus residue. Prominent cricopharyngeus noted by Radiology PA. No tracheal aspiration. Age related flash laryngeal penetration x 1 only. Pt would benefit from OP CARDIOTHORACIC PHYSIOTHERAPIST tx, pt in agreement. TIME IN: 0945 TIME OUT: 1015 MINUTES: 30 INTEGRITY SPECIALIST REQUIRED: No GENERAL INFORMATION: Ordering Physician: Dr Zac Macario ENT Radiologist: Diana SIMON Date of Evaluation: 12/03/24 Type of Study: Initial MBS Reason for Study: Pt referred for MBS by ENT due to feeling like meats get stuck at the back of the throat, no difficulties with thin liquids. Diet Prior to this Study: Regular diet/thin liquids Dysphagia Diagnosis: (mild oropharyngeal dysphagia) SUBJECTIVE: Pleasant, ambulatory. 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 Dysphagia, oropharyngeal phase [R13.12] CARDIOTHORACIC PHYSIOTHERAPIST VIDEOFLUOROSCOPIC SWALLOW STUDY WITH BARIUM [[id number]] XR BARIUM SWALLOW WITH VIDEO AND SPEECH [[id number]] ALLERGIES: Allergies[1] OBJECTIVE Respiratory status: Room air DYSPHAGIA HISTORY/PREVIOUS MBSs none DYSPHAGIA SYMPTOMS REPORTED: Difficulty swallowing food MENTAL STATUS: Alert , Responsive, and Cooperative Oral/Motor: Oral motor skills WNL for Speech/Swallowing tasks Fluoroscopy View: Lateral Position during Eval: Standing CONSISTENCIES TRIALED FOOD: IDDSI Level 7 Regular and IDDSI Level 4 Puree LIQUID: IDDSI Level 3 Moderately Thick, IDDSI Level 2 Mildly Thick, and IDDSI Level 0 Thin BARIUM TABLET: whole with water Oral Phase: Oral Phase: Within Functional Limits Oral Phase - Comment Oral Phase - Comment: premature spillage- age related normal Pharyngeal Phase: Pharyngeal Phase: Impaired Pharyngeal Phase - Comment Pharyngeal Comment: Decreased base of tongue retraction and decreased hyolaryngeal elevation/excursion causing vallecular and posterior pharyngeal wall residue. Flash laryngeal penetration x 1 only. No tracheal aspiration. Cricopharyngeal/Esophageal Phase: Cricopharyngeal Phase: Impaired Cricopharyngeal Phase: Impaired Cricopharyngeal Comment: Prominent cricopharyngeus noted with some retention.Partial duration and partial distention of the pharyngoesophageal segment resulted in partial obstruction of flow and small amounts of pyriform sinus residue. 8- Point Penetration Aspiration Scale (PAS) Consistency- (IDDSI level) Score Comments Moderate thick liquids (3) 1- Material does not enter airway. Mildly thick liquids (2) 1- Material does not enter airway. Thin liquids (0) 2- Material enters the airway, remains above the vocal folds, and is ejected from the airway. X 1 trial only Puree (4) 1- Material does not enter airway. Regular solids (7) 1- Material does not enter airway. Barium tablet 2- Material enters the airway, remains above the vocal folds, and is ejected from the airway. Other: Alison, ANTONELLA, Kassy Giang, Ghazal POOLE, VINNY Ambriz, & VINNY Chen. A Penetration-Aspiration Scale. Dysphagia 11:93-98, 1996. EDUCATION Education: Education provided: Reviewed MBS video Swallow strategies Recommended referral Applied Knowledge, Verbal Understanding, and Demonstrated Skills Elizabeth Fine, CARDIOTHORACIC PHYSIOTHERAPIST 12/03/2024 Please note that swallowing is a dynamic process and the skills reflected during this brief assessment may not necessarily represent the patient's swallowing function during an entire meal. Ongoing clinical judgment is strongly advised. [1] Not on File us Zac Macario MD CARDIOTHORACIC PHYSIOTHERAPIST ORDERABLES Final Re sult * XR Barium Swallow with Video and Speech (12/03/2024 10:12 AM EDT) Anatomical Region Laterality Modality Head and Neck Radiographic Stephie ging 12/03/2024 2:31 PM EDT Impressions 12/03/2024 3:22 PM EDT 1. Flash laryngeal penetration without jess aspiration on large sips of thin barium. 2. Prominent cricopharyngeal muscle. Please refer to the dedicated speech pathologist report for further details as clinically indicated. -------- FINAL REPORT -------- Dictated By: Diana Ferreira Dictated Date: 12/03/2024 14:31 ET Assigned Physician: Bill Banks Reviewed and Electronically Signed By: Bill Banks Signed Date: 12/03/2024 15:22 ET Workstation ID: [id number] Transcribed By: Self Edit Transcribed Date: 12/03/2024 14:34 ET Resident/PA/SAFETY AND OCCUPATIONAL HEALTH MANAGER: Diana Ferreira Narrative 12/03/2024 3:22 PM EDT CLINICAL HISTORY: Dysphagia. STUDY: Modified barium swallow study COMPARISON: No prior modified barium swallow HISTORY: Patient is an 84-year-old female with history of dysphagia TECHNIQUE: Multiple sequential fluoroscopic images of the lateral neck were obtained for a swallowing function study. Barium enhanced consistencies of pudding, honey, nectar, thin liquid, semi- solid, and a 13 mm barium tablet were utilized for evaluation. Examination was performed with the speech therapist present. FINDINGS: There is flash penetration without jess aspiration on large sips of thin barium. There was no evidence for penetration or aspiration of any of the other various consistencies. 13 mm barium tablet was swallowed without difficulty with prompt passage of pill past the hypopharynx. There is a prominent cricopharyngeal muscle noted on multiple swallows. No diverticulum demonstrated. Air Kerma: 1.37 mGy Procedure Note Bill Banks MD - 12/03/2024 CLINICAL HISTORY: Dysphagia. STUDY: Modified barium swallow study COMPARISON: No prior modified barium swallow HISTORY: Patient is an 84-year-old female with history of dysphagia TECHNIQUE: Multiple sequential fluoroscopic images of the lateral neckwere obtained for a swallowing function study. Barium enhancedconsistencies of pudding, honey, nectar, thin liquid, semi-solid, and a 13mm barium tablet were utilized for evaluation. Examination was performedwith the speech therapist present. FINDINGS: There is flash penetration without jess aspiration on large sips of thinbarium. There was no evidence for penetration or aspiration of any of theother various consistencies. 13 mm barium tablet was swallowed withoutdifficulty with prompt passage of pill past the hypopharynx. There is aprominent cricopharyngeal muscle noted on multiple swallows. Nodiverticulum demonstrated. Air Kerma: 1.37 mGy IMPRESSION: 1. Flash laryngeal penetration without jess aspiration on large sips ofthin barium. 2. Prominent cricopharyngeal muscle. Please refer to the dedicated speech pathologist report for furtherdetails as clinically indicated. -------- FINAL REPORT -------- Dictated By: Diana Ferreira Dictated Date: 12/03/2024 14:31 ET Assigned Physician: Bill Banks Reviewed and Electronically Signed By: Bill Banks Signed Date: 12/03/2024 15:22 ET Workstation ID: [id number] Transcribed By: Self Edit Transcribed Date: 12/03/2024 14:34 ET Resident/PA/SAFETY AND OCCUPATIONAL HEALTH MANAGER: Diana Ferreira us Zac Macario MD IMG FLUOROSCOPY PROCEDUR ES Final Result * KAYA DEXA AXIAL SKELETON (09/18/2020 11:20 AM EDT) Anatomical Region Laterality Modality Mammography 09/18/2020 10:0 5 AM EDT Narrative 09/18/2020 11:[address] [facility] Diagnostic Imaging Department [address] [place] [address] Patient: SHE BARAKAT Jesus Manuel AlvaradoB./Age/Sex: 1940 80 - F Unit#: [id number] Location/Status: SPDIMAM/REG CLI [facility]em[facility] Ordering Physician: ALESSANDRO KENNEDY MD Kaya Dexa Axial Skeleton - 09/18/20 - 1115 HISTORY: The patient is a 72-year-old postmenopausal female with clinical concern for metabolic bone disease. FINDINGS: Dual energy x-ray absorptiometry of the lumbar spine and femurs is performed. The mean bone mineral density at L1-2 is 1.290 gm/cm2 which is 111% of that of young normals and 124% of that of age matched controls. This yields a T-score of 1.0 and a Z-score of 2.1 and there is therefore no evidence of osteoporosis or osteopenia here. The mean bone mineral density of the femurs bilaterally is 0.942 gm/cm2 which is 94% of that of young normals and 113% of that of age matched controls. This yields a T-score of -0.5 and a Z-score of 0.9 and there is therefore no evidence of osteoporosis or osteopenia here. However, the T-score of the right femoral neck is -1.3 and that of the left femoral neck is -1.7 which is diagnostic of osteopenia. IMPRESSION: 1. Osteopenia. There has been an increase of 1.1% in bone mineral density in the lumbar spine since the prior examination of 09/16/2019. There has been a decrease of 0.6% in bone mineral density in the right femur and a decrease of 2.4% in bone mineral density in the left femur. 2. FRAX analysis yields a 10-year probability of major osteoporotic fracture of 19.4% and a 10-year probability of hip fracture of 9.9%. Code 81675 Dictating Physician: HERVE LOYOLA MD Electronically Signed by: HERVE LOYOLA MD Dic Date/Time: 09/18/20 1119 Sign date/Time: 09/18/20 1120 Procedure Note Herve Loyola MD - 02/16/2022 [facility] Diagnostic Imaging Department [address] [place] [address] Patient: SHE BARAKAT /Age/Sex: 1940 - 80 - F Unit#: [id number] [facility] Mnemonic/Ordering Site: [facility]/SPMAM Ordering Physician: ALESSANDRO KENNEDY MD [facility] Dexa Axial Skeleton - 09/18/20 - 111 HISTORY: The patient is a 72-year-old postmenopausal female withclinical concern for metabolic bone disease. FINDINGS: Dual energy x-ray absorptiometry of the lumbar spine and femursis performed. The mean bone mineral density at L1-2 is 1.290 gm/cm2 which is111% of that of young normals and 124% of that of age matched controls. Thisyields a T-score of 1.0 and a Z-score of 2.1 and there is therefore no evidenceof osteoporosis or osteopenia here. The mean bone mineral density of the femurs bilaterally is 0.942 gm/od2cynpx is 94% of that of young normals and 113% of that of age matched controls.This yields a T-score of -0.5 and a Z-score of 0.9 and there is therefore noevidence of osteoporosis or osteopenia here. However, the T-score of the rightfemoral neck is -1.3 and that of the left femoral neck is -1.7 which is diagnosticof osteopenia. IMPRESSION: 1. Osteopenia. There has been an increase of 1.1% in bone mineral densityin the lumbar spine since the prior examination of 09/16/2019. There has yvrose decrease of 0.6% in bone mineral density in the right femur and a decreaseof 2.4% in bone mineral density in the left femur. 2. FRAX analysis yields a 10-year probability of major osteoporoticfracture of 19.4% and a 10-year probability of hip fracture of 9.9%. Code 57022 Dictating Physician: HERVE LOYOLA MD Electronically Signed by: HERVE LOYOLA MD Dic Date/Time: 09/18/20 1119 Sign date/Time: 09/18/20 1120 Alessandro Kennedy MD IMG BI PROCEDURES Final Result from Last 3 Months or Most Recently Relevant to Health Maintenance Insurance MEDICARE [facility] Advance Directives Documents on File Type Date Recorded Patient Tele Tech Expl anation Health Care Decision (hx) 09/22/2020 AD DUMAS DIRECTIVE Health Care Decision (hx) 09/22/2020 AD DUMAS DIRECTIVE Health Care Decision (hx) 09/22/2020 AD DUMAS DIRECTIVE Health Care Decision (hx) 09/22/2020 AD DUMAS DIRECTIVE Care Teams Log Carrier Operator Relationship Specialty Start Date End Date Sidney Campo MD [address] [place] [address] PCP - General Internal Medicine 11/25/24
--- OUTSIDE RECORDS SUMMARY | 2024-12-25 20:43 | XMS_ITS | Encounter Summary ---
Author Organization [facility] Address [address] [facility] [address] [place] [address] Phone Care Team Providers Care Pot Holder Binder Name Role Phone Royer Botello MD Primary Care Provider [phone] Sidney Campo MD Primary Care Provider [phone] Encounter Details Date Type Department Care Team (Late st Contact Info) Description 05/20/2020 Procedure Pass OR Admitting Dept - Virtual Department [address] [place] [address] Social History Tobacco Use Types Packs/Day Years Used Date Smoking Tobacco: Former Cigarettes 0.3 30 0 05/14/1948 - 05/14/1978 Smokeless Tobacco: Never Comments:quit 40 years ago Alcohol Use Standard Drinks/Week Comments Not Currently 0 (1 standard drink = 0.6 oz pur e alcohol) Comments No Sex and Gender Information Value Date Recorded Sex Assigned at Female 05/20/2020 3:54 PM EDT Legal Sex Female 10:38 PM EDT Gender Identity Female 05/20/2020 3:54 PM EDT Sexual Orientation Straight 05/20/2020 3: 54 PM EDT documented as of this encounter Functional Status * Calculated C-SSRS Risk Score (Lifetime/Recent) Answer Date of Assessment Author No Risk Indicated 05/20/2020 3:58 PM EDT Lisa Cool RN * [place] Suicide Severity Rating Scale (Screener/Recent Self-Report) Question Answer Date of Assessment Author 1. Wish to be (Past 1 Month) No 05/20/2020 3:58 PM EDT Lisa Valdivia RN 2. Non-Specific Active Suici juan pablo Thoughts (Past 1 Month) No 05/20/2020 3:58 PM EDT Dayan Valdivia cia, RN 6. Suicidal Behavior (Lifetime) No 1 3:58 PM EDT Lisa Valdivia RN documented as of this encounter Plan of Treatment Upcoming Encounters Date Type Department Care Team (Late st Contact Info) Description 02/17/2025 3:00 PM EST Office Visit [facility] Internal Medicine [address] [place], [place] [phone] Sidney Campo MD [address] [place] [address] [email or web address] documented as of this encounter Visit Diagnoses Not on filedocumented in this encounter Care Teams Pot Holder Binder Relationship Specialty Start Date End Date Royer Botello MD [address] [place] [address] PCP - General 12/08/16 10/22/24 Sidney Campo MD [address] [place] [address] juan PCP - General Internal Medicine 10/23/24 documented as of this encounter Additional Source Comments The information contained in this document represents components of the legal health record. It is not the complete legal health record.[facility]
--- OUTSIDE RECORDS SUMMARY | 2024-12-25 20:43 | XMS_ITS | Encounter Summary ---
Author Organization [facility] Address [address] [place] [address] [place] [address] Phone Care Team Providers Care Adult And Pediatric Neurologist Name Role Phone Royer Botello MD Primary Care Provider [phone] Sidney Campo MD Primary Care Provider [phone] Encounter Details Date Type Department Care Team (Late Contact Info) Description 12/07/2020 Procedure Pass [facility], Ct Scan - [address] [address] Social History Tobacco Use Types Packs/Day Years [...] PM EDT documented as of this encounter Plan of Treatment Upcoming Encounters Date Type Department Care Team (Late Contact Info) Description 02/17/2025 3:00 PM EST Office Visit [facility] Internal Medicine [address] [place], [place] [phone] Sidney Campo MD [address] [place] [address] juan documented as of this encounter Visit Diagnoses Not on filedocumented in this encounter Care Teams Adult And Pediatric Neurologist Relationship Specialty Start Date End Date Royer Botello MD [address] [place] [address] PCP - General 12/08/16 10/22/24 Sidney Campo MD [address] [place] [address] juan [email or web address] PCP - General Internal Medicine 10/23/24 documented as of this encounter Additional Source Comments The information contained in this document represents components of the legal health record. It is not the complete legal health record.[facility]
--- OUTSIDE RECORDS SUMMARY | 2024-12-25 20:43 | XMS_ITS | Encounter Summary ---
Author Organization [facility] Address [address] [place] [address] [place] [address] Phone Care Team Providers Care Freezer Machine Operator Name Role Phone Royer Botello MD Primary Care Provider [phone] Sidney Campo MD Primary Care Provider [phone] Encounter Details Date Type Department Care Team (Late Contact Info) Description 12/16/2020 Ancillary Orders [facility],Outside Imaging [address] [place] [address] System, Provider Not In, [place] [address] Social History Tobacco Use Types Packs/Day Years [...] Description 02/17/2025 3:00 PM EST Office Visit [facility] Internal Medicine [address] [place] [address] Sidney Campo MD [address] [place] [address] documented as of this encounter Results * XR Upper Extremity Outside (No Interpretation) (06/29/2020 12:05 AM EDT) Narrative SYSTEMGENERATED, DOCUMENTATION - 12/16/2020 10:55 AM EDT This study is for PACS storage only and not for interpretation. us Provider Not In System PhD IMG OUTSIDE IMAGING W /OUT INTERPRETATION Final Result * XR Upper Extremity Outside (No Interpretation) (06/29/2020 12:00 AM EDT) Narrative SYSTEMGENERATED, DOCUMENTATION - 12/16/2020 10:55 AM EDT This study is for PACS storage only and not for interpretation. us Provider Not In System PhD IMG OUTSIDE IMAGING W /OUT INTERPRETATION Final Result documented in this encounter Visit Diagnoses Not on filedocumented in this encounter Care Teams Freezer Machine Operator Relationship Specialty Start Date End Date Royer Botello MD [address] [place] [address] PCP - General 12/08/16 10/22/24 Sidney Campo MD [address] [place] [address] [email or web address] PCP - General Internal Medicine 10/23/24 documented as of this encounter Additional Source Comments The information contained in this document represents components of the legal health record. It is not the complete legal health record.[facility]
--- OUTSIDE RECORDS SUMMARY | 2024-12-25 20:43 | XMS_ITS | Encounter Summary ---
Author Organization [facility] Address [address] [place] [address] [place] [address] Phone Care Team Providers Care Door Glass Installer Name Role Phone Royer Botello MD Primary Care Provider [phone] Sidney Campo MD Primary Care Provider [phone] Encounter Details Date Type Department Care Team (Late Contact Info) Description 12/09/2020 Ancillary Orders [facility],Outside Imaging [address] [place] [address] System, Provider Not In, [place] [address] Social History Tobacco Use Types Packs/Day Years [...] Description 02/17/2025 3:00 PM EST Office Visit [facility] Internal Medicine [address] [place] [address] Sidney Campo MD [address] [place] [address] [email or web address] documented as of this encounter Results * MRI Outside Upper Extremity (No Interpretation) (10/27/2020 12:00 AM EDT) Narrative SYSTEMGENERATED, DOCUMENTATION - 12/09/2020 8:13 AM EDT This study is for PACS storage only and not for interpretation. us Provider Not In System PhD IMG OUTSIDE IMAGING W /OUT INTERPRETATION Final Result documented in this encounter Visit Diagnoses Not on filedocumented in this encounter Care Teams Door Glass Installer Relationship Specialty Start Date End Date Royer Botello MD [address] [place] [address] PCP - General 12/08/16 10/22/24 Sidney Campo MD [address] [place] [address] [email or web address] PCP - General Internal Medicine 10/23/24 documented as of this encounter Additional Source Comments The information contained in this document represents components of the legal health record. It is not the complete legal health record.[facility]
--- OUTSIDE RECORDS SUMMARY | 2024-12-25 20:43 | XMS_ITS | Clinical Summary ---
Author Organization [facility] Address [facility] [place] [address] Care Team Providers Care Shield Cleaner Name Role Phone Royer Botello MD Primary Care Provider [phone] Allergies Active Allergy Reactions Criticality Noted Date Comments Amrohyn-Ilo-Lmj Reductase Inhibitors 07/22/2011 Blood levels increased Medications lisinopril (PRINIVIL;ZESTRI L) 20 mg tablet Take 20 mg by mouth daily. Active atenolol (TENORMIN) 25 mg tablet Take 25 mg by mouth daily. Active hydrochlorothiaz chas (HYDRODIURIL) 25 mg tablet Take 12.5 mg by mouth daily. Active aspirin 81 mg EC tablet Take 81 mg by mouth daily. Active gemfibrozil (LOPID) 600 mg tablet Take 600 mg by mouth 2 times daily. Active Family History Medical History Relation Comments Arthritis Neg Hx Social History Tobacco Use Types Packs/Day Years Used Date Smoking Tobacco: Former Comments Unknown Sex and Gender Information Value Date Recorded Sex Assigned at Not on file Legal Sex Female 7:31 AM EST Gender Identity Not on file Sexual Orientation Not on file Last Filed Vital Signs Vital Sign Reading Time Taken Comments Blood Pressure 129/79 07/22/2011 3:43 PM EDT Pulse 59 07/22/2011 3:43 PM EDT Temperature - - Respiratory Rate 20 07/22/2011 3:43 PM EDT Oxygen Saturation 96% 07/22/2011 3:43 PM EDT Inhaled Oxygen Concentration - - Weight 99.8 kg (220 lb) 07/22/2011 3:43 PM EDT Height 170.2 cm (5' 7 ) 07/22/2011 3:43 PM EDT Body Mass Index 34.46 07/22/2011 3:43 PM EDT Plan of Treatment Health Maintenance Due Date Last Done Comments Tetanus/Diphtheria/Pertussis Vaccines (1 - Tdap) 02/10 Pneumoccocal Vaccine: 50+ (1 of 1 - PCV) 02/11/1992 Zoster vaccine (1 of 2) 02/11/1992 Advance Directive 1997 Bone Density Scan 2007 RSV Vaccine (1 - 1-dose 75+ series) 2017 Covid-19 Vaccine (1 - 2024- season) 2024 Influenza (Flu) vaccine (1 o f 1 - Influenza standard series) 10/21/2024 Care Teams Shield Cleaner Relationship Specialty Start Date End Date Royer Botello MD [address] [place] [address] PCP - General 07/18/11
--- OUTSIDE RECORDS SUMMARY | 2024-12-25 20:43 | XMS_ITS | Encounter Summary ---
Author Organization [facility] Address [address] [place] [address] [place] [phone] Phone Care Team Providers Care Floodplain Manager Name Role Phone Royer Botello MD Primary Care Provider [phone] Sidney Campo MD Primary Care Provider [phone] Encounter Details Date Type Department Care Team (Late Contact Info) Description 12/09/2020 Ancillary Orders [facility],Outside Imaging [address] [place] [address] System, Provider Not In, [place] [address] Social History Tobacco Use Types Packs/Day Years [...] Description 02/17/2025 3:00 PM EST Office Visit [facility] Internal Medicine [address] [place] [address] Sidney Campo MD [address] [place] [address] [email or web address] documented as of this encounter Results * MRI Outside Upper Extremity (No Interpretation) (10/27/2020 12:05 AM EDT) Narrative SYSTEMGENERATED, DOCUMENTATION - 12/09/2020 8:14 AM EDT This study is for PACS storage only and not for interpretation. us Provider Not In System PhD IMG OUTSIDE IMAGING W /OUT INTERPRETATION Final Result documented in this encounter Visit Diagnoses Not on filedocumented in this encounter Care Teams Floodplain Manager Relationship Specialty Start Date End Date Royer Botello MD [address] [place] [id number] PCP - General 12/08/16 10/22/24 Sidney Campo MD [address] [place] [id number] [email or web address] PCP - General Internal Medicine 10/23/24 documented as of this encounter Additional Source Comments The information contained in this document represents components of the legal health record. It is not the complete legal health record.[facility]
--- OUTSIDE RECORDS SUMMARY | 2024-12-25 20:44 | XMS_ITS | Encounter Summary ---
Author Organization [facility] Address [address] [place] [phone] Phone Care Team Providers Care Cutting Machine Tender Helper Name Role Phone Royer Botello MD Primary Care Provider [phone] Sidney Campo MD Primary Care Provider [phone] Encounter Details Date Type Department Care Team (Late Contact Info) Description 10/16/2017 Ancillary Orders [facility] Orthopedics & Sports Medicine [address] [place] [id number] Vickie Najera MD [address] [place] [address] Orthopedics & Sports Medicine, [facility] [place], [place] [id number] Social History Tobacco Use Types Packs/Day Years [...] Description 02/17/2025 3:00 PM EST Office Visit [facility] Internal Medicine [address] [place], [place] [phone] Sidney Campo MD [address] [place], [place] [phone] juan documented as of this encounter Visit Diagnoses Not on filedocumented in this encounter Care Teams Cutting Machine Tender Helper Relationship Specialty Start Date End Date Royer Botello MD [address] [place] [phone] PCP - General 12/08/16 10/22/24 Sidney Campo MD [address] [place] [address] [email or web address] PCP - General Internal Medicine 10/23/24 documented as of this encounter Additional Source Comments The information contained in this document represents components of the legal health record. It is not the complete legal health record.[facility]
--- OUTSIDE RECORDS SUMMARY | 2024-12-25 20:44 | XMS_ITS | Data Portability ---
Author Organization [place] - [facility], Allergy Address [address] [facility] [address] [place] [address] Care Team Providers Care Pipe Installer Name Role Phone NEELAM RUSS Primary Care Provider Assessment Encounter Date Assessment Date Assessment LastModified by Organization Details LastModified Time 11/19/2024 11/19/2024 84-year-old female presents for evaluation of facial pressure and excessive mucus of her throat. On examination turbinate hypertrophy and clear rhinorrhea are noted bilaterally. On fiberoptic laryngoscopy today there is no significant pooling of secretions in the piriform sinuses, and there is otherwise normal vocal fold mobility and no evidence of masses. I suspect that posterior rhinorrhea secondary to allergies may be contributing to the excessive mucus in her throat. I recommend ipratropium nasal spray 2-3 times daily to reduce secretions from her nasal mucosa. The patient is interested in pursing blood allergy testing, which I also think is appropriate. RAST testing was ordered, and she will be notified regarding the results when they return. Recommend that she avoid throat clearing and instead take sips of water when she feels throat irritation. Since the patient reports dysphagia to solids causing her to occasionally cough the food back up I will order a barium swallow study to assess for structural and motility abnormalities of the upper digestive tract. [email or web address] Not available 11/19/2024 12:36:57 Plan of Treatment Reminders Order Date Submit Date Provider Last Modified By Organization Details Last Modified Time Details Appointments None recorded. Lab unlisted lab - allergens, zone 1 2024 025 MARCIA [facility], [address], [place], [address], 21:16:58 ige, total, serum 2024 025 MARENISCO [facility], [address], [place], [address], 21:16:58 CBC w/ auto diff 2024 025 MARCIA [facility], [address], [place], [address], 21:16:57 Referral None recorded. Procedures None recorded. Surgeries None recorded. Imaging [place], modified barium swallow study [address] [facility], [address] [place] [address], [place], [address], 10:12:20 Medication Orders ipratropium bromide 21 mcg (0.03 %) nasal spray 2024 025 [facility], [address] [place] [address], [address], 10:34:17 Patient TargetsNo targets recorded. Patient InstructionsNo instructions recorded. Reason for Referral None Reported. Results Created Date Observation Date Name Description Value Unit Range Abnormal Flag Note LastModifiedBy Organization Detail LastModifiedTime 11/20/1911/19/2024 CBC WITH DIFFE RENTI AL/PL ATELE T WBC 4.3 x10e3 /uL 3.4-10 .8 normal Not Available [facility] ([facility]) [address] [place], [address], 11/20/2024 21:16:57 11/20/1911/19/2024 CBC WITH DIFFE RENTI AL/PL ATELE T RBC 3.95 x10e6 /uL 3.77-5 .28 normal Not Available [facility] ([facility]) [address] [place], [address], 11/20/2024 21:16:57 11/20/1911/19/2024 CBC WITH DIFFE RENTI AL/PL ATELE T hemoglobin 13.3 g/dL 11.1-1 5.9 normal Not Available [facility] ([facility]) [address] [place], [address], 11/20/2024 21:16:57 11/20/19 25 11/19/2024 CBC WITH DIFFE RENTI AL/PL ATELE T hematocrit 36.6 % 34.0-4 6.6 normal Not Available [facility] ([facility]) [address] [place], [address], 11/20/2024 21:16:57 11/20/1911/19/2024 CBC WITH DIFFE RENTI AL/PL ATELE T MCV 93 fL 79-97 normal Not Available [facility] ([facility]) [address] [place], [address], 11/20/2024 21:16:57 11/20/1911/19/2024 CBC WITH DIFFE RENTI AL/PL ATELE T MCH 33.7 pg 26.6-3 3.0 above high normal Not Available [facility] ([facility]) [address] [place], [address], 11/20/2024 21:16:57 11/20/19 25 11/19/2024 CBC WITH DIFFE RENTI AL/PL ATELE T MCHC 36.3 g/dL 31.5-3 5.7 above high normal Not Available [facility] ([facility]) [address] [place], [address], 11/20/2024 21:16:57 11/20/1911/19/2024 CBC WITH DIFFE RENTI AL/PL ATELE T RDW 12.7 % 11.7-1 5.4 Not Available [facility] ([facility]) [address] [place], [address], 11/20/2024 21:16:57 11/20/1911/19/2024 CBC WITH DIFFE RENTI AL/PL ATELE T platelets 218 x10e3 /uL 150-45 0 normal Not Available [facility] ([facility]) [address] [facility], [place], [address], 11/20/2024 21:16:57 11/20/19 25 11/19/2024 CBC WITH DIFFE RENTI AL/PL ATELE T neutrophils 56 % not estab. normal Not Available [facility] ([facility]) [address] [facility], [place], [address], 11/20/2024 21:16:57 11/20/19 25 11/19/2024 CBC WITH DIFFE RENTI AL/PL ATELE T lymphs 30 % not estab. normal Not Available [facility] ([facility]) [address] [facility], [place], [address], 11/20/2024 21:16:57 11/20/19 25 11/19/2024 CBC WITH DIFFE RENTI AL/PL ATELE T monocytes 9 % not estab. normal Not Available [facility] ([facility]) [address] [facility], [place], [address], 11/20/2024 21:16:57 11/20/19 25 11/19/2024 CBC WITH DIFFE RENTI AL/PL ATELE T eos 4 % not estab. normal Not Available [facility] ([facility]) [address] [facility], [place], [address], 11/20/2024 21:16:57 11/20/19 25 11/19/2024 CBC WITH DIFFE RENTI AL/PL ATELE T basos 1 % not estab. 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 0 normal Not Available [facility] ([facility]) [address] [place], [address], 11/20/2024 21:16:57 11/20/19 25 11/19/2024 CBC WITH DIFFE RENTI AL/PL ATELE T lymphs (absolute) 1.3 x10e3 /uL 0.7-3. 1 normal Not Available [facility] ([facility]) [address] [place], [address], 11/20/2024 21:16:57 11/20/1911/19/2024 CBC WITH DIFFE RENTI AL/PL ATELE T monocytes(ab solute) 0.4 x10e3 /uL 0.1-0. 9 normal Not Available [facility] ([facility]) [address] [place], [address], 11/20/2024 21:16:57 11/20/19 25 11/19/2024 CBC WITH DIFFE RENTI AL/PL ATELE T eos (absolute) 0.2 x10e3 /uL 0.0-0. 4 normal Not Available [facility] ([facility]) [address] [place], [address], 11/20/2024 21:16:57 11/20/19 25 11/19/2024 CBC WITH DIFFE RENTI AL/PL ATELE T baso (absolute) 0.0 x10e3 /uL 0.0-0. 2 normal Not Available [facility] ([facility]) [address] [place], [address], 11/20/2024 21:16:57 11/20/19 25 11/19/2024 CBC WITH DIFFE RENTI AL/PL ATELE T immature granulocytes 0 % not estab. Not Available [facility] ([facility]) [address] [facility], [place], [address], 11/20/2024 21:16:57 11/20/19 25 11/19/2024 CBC WITH DIFFE RENTI AL/PL ATELE T immature grans (abs) 0.0 x10e3 /uL 0.0-0. 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 Not Available [facility] ([facility]) [address] [facility], [place], [address], 11/20/2024 21:16:57 11/20/1911/19/2024 CBC WITH DIFFE RENTI AL/PL ATELE T hematology comments: AIRCRAFT TOOL MAKER Not Available [facility] ([facility]) [address] [facility], [place], [address], 11/20/2024 21:16:57 11/20/1911/19/2024 ALLER GENS, ZONE 1 class description Commen t Level s of Speci fic IgE Class Descr iptio n of Class ----- ----- ----- ----- ----- -- ----- ----- ----- ----- ----- < 0.10 0 Negat emiliana 0.10 - 0.31 0/I Equiv ocal/ Low 0.32 - 0.55 I Low 0.56 - 1.40 II Moder ate 1.41 - 3.90 III High 3.91 - 19.00 IV Very High 19.01 - 100.0 0 V Very High >100. 00 Very High Not Available [facility] ([facility]) [address] [facility], [place], [address], 11/20/2024 21:16:58 11/20/19 25 11/20/2024 ALLER GENS, ZONE 1 X480-HoE D pteronyssinu s 0.14 kU/L class 0/I abnormal Not Available [facility] ([facility]) [address] [facility], [place], [address], 11/20/2024 21:16:58 11/20/19 25 11/20/2024 ALLER GENS, ZONE 1 V500-GgX D farinae 0.80 kU/L class II abnormal Not Available [facility] ([facility]) [address] [place], [address], 11/20/2024 21:16:58 11/20/19 25 11/20/2024 ALLER GENS, ZONE 1 N755-PuV CAT dander <0.10 kU/L class 0 Not Available [facility] ([facility]) [address] [place], [address], 11/20/2024 21:16:58 11/20/19 25 11/20/2024 ALLER GENS, ZONE 1 C084-GtI dog dander <0.10 kU/L class 0 Not Available [facility] ([facility]) [address] [place], [address], 11/20/2024 21:16:58 11/20/19 25 11/20/2024 ALLER GENS, ZONE 1 g300-AkZ bermuda grass <0.10 kU/L class 0 Not Available [facility] ([facility]) [address] [place], [address], 11/20/2024 21:16:58 11/20/19 25 11/20/2024 ALLER GENS, ZONE 1 j930-RqD bluegrass, [place] <0.10 kU/L class 0 Not Available [facility] ([facility]) [address] [place], [address], 11/20/2024 21:16:58 11/20/19 25 11/20/2024 ALLER GENS, ZONE 1 s848-HwR bahia grass <0.10 kU/L class 0 Not Available [facility] ([facility]) [address] [place], [address], 11/20/2024 21:16:58 11/20/19 25 11/20/2024 ALLER GENS, ZONE 1 S080-NzR cockroach, grenadian <0.10 kU/L class 0 Not Available [facility] ([facility]) [address] [place], [address], 11/20/2024 21:16:58 11/20/19 25 11/20/2024 ALLER GENS, ZONE 1 M787-VqU penicillium chrysogen <0.10 kU/L class 0 Not Available [facility] ([facility]) [address] [place], [address], 11/20/2024 21:16:58 11/20/19 25 11/20/2024 ALLER GENS, ZONE 1 C431-SlY cladosporium herbarum <0.10 kU/L class 0 Not Available [facility] ([facility]) [address] [place], [address], 11/20/2024 21:16:58 11/20/19 25 11/20/2024 ALLER GENS, ZONE 1 R289-XuD aspergillus fumigatus <0.10 kU/L class 0 Not Available [facility] ([facility]) [address] [place], [address], 11/20/2024 21:16:58 11/20/19 25 11/20/2024 ALLER GENS, ZONE 1 I304-KaV mucor racemosus <0.10 kU/L class 0 Not Available [facility] ([facility]) [address] [place], [address], 11/20/2024 21:16:58 11/20/19 25 11/20/2024 ALLER GENS, ZONE 1 V282-AnL alternaria alternata <0.10 kU/L class 0 Not Available [facility] ([facility]) [address] [place], [address], 11/20/2024 21:16:58 11/20/19 25 11/20/2024 ALLER GENS, ZONE 1 V006-QiY stemphylium herbarum <0.10 kU/L class 0 Not Available [facility] ([facility]) [address], [place], [address], 11/20/2024 21:16:58 11/20/1911/20/2024 ALLER GENS, ZONE 1 W619-UwL common silver birch <0.10 kU/L class 0 Not Available [facility] ([facility]) [address] [place], [address], 11/20/2024 21:16:58 11/20/19 25 11/20/2024 ALLER GENS, ZONE 1 D678-LkX oak, white <0.10 kU/L class 0 Not Available [facility] ([facility]) [address], [place], [address], 11/20/2024 21:16:58 11/20/19 25 11/20/2024 ALLER GENS, ZONE 1 C764-FiU elm, grenadian <0.10 kU/L class 0 Not Available [facility] ([facility]) [address], [place], [address], 11/20/2024 21:16:58 11/20/19 25 11/20/2024 ALLER GENS, ZONE 1 K619-EpY neema, white <0.10 kU/L class 0 Not Available [facility] ([facility]) [address] [facility], [place], [address], 11/20/2024 21:16:58 11/20/19 25 11/20/2024 ALLER GENS, ZONE 1 H693-RxH maple/box elder <0.10 kU/L class 0 Not Available [facility] ([facility]) [address] [facility], [place], [address], 11/20/2024 21:16:58 11/20/19 25 11/20/2024 ALLER GENS, ZONE 1 R915-YkM hazelnut tree <0.10 kU/L class 0 Not Available [facility] ([facility]) [address] [facility], [place], [address], 11/20/2024 21:16:58 11/20/19 25 11/20/2024 ALLER GENS, ZONE 1 I377-FxV hickory, white <0.10 kU/L class 0 Not Available [facility] ([facility]) [address] [facility], [place], [address], 11/20/2024 21:16:58 11/20/19 25 11/20/2024 ALLER GENS, ZONE 1 I945-GeN white mulberry <0.10 kU/L class 0 Not Available [facility] ([facility]) [address] [place], [address], 11/20/2024 21:16:58 11/20/19 25 11/20/2024 ALLER GENS, ZONE 1 T158-NsE cedar, mountain <0.10 kU/L class 0 Not Available [facility] ([facility]) [address] [place], [address], 11/20/2024 21:16:58 11/20/19 25 11/20/2024 ALLER GENS, ZONE 1 Q479-LyW ragweed, short <0.10 kU/L class 0 Not Available [facility] ([facility]) [address] [place], [address], 11/20/2024 21:16:58 11/20/19 25 11/20/2024 ALLER GENS, ZONE 1 K243-DjM mugwort <0.10 kU/L class 0 Not Available [facility] ([facility]) [address] [facility], [place], [address], 11/20/2024 21:16:58 11/20/19 25 11/20/2024 ALLER GENS, ZONE 1 V160-QdV plantain, fijian <0.10 kU/L class 0 Not Available [facility] ([facility]) [address] [facility], [place], [address], 11/20/2024 21:16:58 11/20/19 25 11/20/2024 ALLER GENS, ZONE 1 P024-LsT pigweed, common <0.10 kU/L class 0 Not Available [facility] ([facility]) [address] [facility], [place], [address], 11/20/2024 21:16:58 11/20/19 25 11/20/2024 ALLER GENS, ZONE 1 Q698-SrU sheep sorrel <0.10 kU/L class 0 Not Available [facility] ([facility]) [address] [facility], [place], [address], 11/20/2024 21:16:58 11/20/19 25 11/20/2024 ALLER GENS, ZONE 1 E220-XxC nettle <0.10 kU/L class 0 Not Available [facility] ([facility]) [address] [facility], [place], [address], 11/20/2024 21:16:58 11/20/19 25 11/20/2024 IMMUN OGLOB ULIN E, TOTAL immunoglobul in E, total 43 IU/mL 6-495 Not Available [facility] ([facility]) [address] [facility], [place], [address], 11/20/2024 21:16:58 12/04/19 25 12/03/[address] No observ ation record ed. [facility] [address], [place], [address], 12/11/2024 17:40:51 12/04/19 25 12/03/2024 xr wai davis ow with video and speec h See Note [facility] , a member of [facility] Alexis bauman Name: SHE WILEY Date of : 1939 Reason for Exam: dyspha jens Exam Date: 2024 [id number] EST Report Status : Final Orderi ng Provid er: BETO LOYA BSTEIN PCP: NEELAM ROBLES AL HISTOR Y: Dyspha jens. STUDY: Modifi ed barium swallo w study COMPAR RADHA: No prior modifi ed barium swallo w HISTOR Y: Alexis bauman is an 84-yea r-old female with histor y of dyspha jens TECHNI QUE: Multip le sequen tial fluoro scopic images of the latera l neck were obtain ed for a swallo wing functi on study. Barium enhanc ed consis tencie s of puddin g, honey, nectar , thin liquid , semi-s olid, and a 13 mm barium tablet were utiliz ed for evalua tion. Examin ation was perfor med with the speech therap ist raj BELCHER GS: There is flash penetr ation withou t jess aspira tion on large sips of thin barium . There was no eviden ce for penetr ation or aspira tion of any of the other variou s consis tencie s. 13 mm barium tablet was swallo wed withou t diffic ulty with prompt passag e of pill past the hypoph arynx. There is a promin ent cricop haryng eal muscle noted on multip le swallo ws. No divert iculum demons trated . Air Kerma: 1.37 mGy IMPRES MARIA GUADALUPE: 1. Flash laryng eal penetr ation withou t jess aspira tion on large sips of thin barium . 2. Promin ent cricop haryng eal muscle . Please refer to the rui vang speech pathol ogist report for furthe r detail s as clinic matt vang. 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 Problems Name Problem SNOMED Code Status Onset Date Resolution Date Notes Provider Name and Address Organization Details Recorded Time History of SARS-CoV- 2 02020852714 1293183 Active 2023 Personal history of COVID-19; Note: Date Diagnosed : 03/09/2023 4:35 PM (Z86.16) Not Available [facility] 4 02:39:41 Chronic cough 16274727 Active 2023 Chronic cough; Note: Date Diagnosed : 03/09/2023 4:34 PM (R05.3) BETO PHAN MD [address] [facility],[place] [address], [place], [address] , [place] - [facility] 5 10:29:45 Posterior rhinorrhe a 69937688 Active 2023 Postnasal drip; Note: Date Diagnosed : 03/09/2023 4:34 PM (R09.82) BETO PHAN MD [address] [facility],[place] [address], [place], [address] , [place] [facility] 5 10:29:35 Oropharyn geal dysphagia 89596482 Active 2024 BETO PHAN MD [address] [facility],[place] [address], [place], [address] , [place] [facility] 10:28:34 Seasonal allergic rhinitis 211556059 Active 2024 BETO PHAN MD [address] [facility],[place] [address], [place], [address] , [facility] - [facility] 10:32:31 Allergic rhinitis 36363627 Active 2024 BETO PHAN MD [address] [address], [place], [address] , [facility] - [facility] 5 10:33:01 Allergic rhinitis caused by pollen 19557739 [facility] 2024 BETO PHAN MD [address] [facility],[place] [address], [place], [address] , [facility] 10:33:01 Clearing throat - hawking 821634099 Active 2024 AURORA VYAS [address] [facility],[place] [address], [place], [address] , [facility] 12:15:51 Problem Notes None recorded. Procedures Surgical History Date Name Laterality Status Provider Name and Address Organization Details Recorded Time 11/20/19 25 Fiberoptic Laryngoscopy (Comprehensive) completed BETO LUNSFORD MD [address] [facility],[place] [address], [place], [address], [facility] - [facility] 11/19/2024 12:37:14 Imaging Results None recorded. Procedure Notes None recorded. Medical Equipment None Reported. Allergies Allergen ID Allergen Name Allergen Category Reaction Reaction Severity Criticality Documentation Date Start Date Code Code System Note Provider Name and Address Organization Details Recorded Time 032890 Aleve medicatio n Not available Not available Not available 11/19/2024 54371 1 RxNorm Diana Aba [address] [facility] [address], [place], [address], [facility] 10:05:57 96198 lisinopri l medicatio n Not available Not available Not available 07/04/2023 20317 RxNorm React ion: edema -lips ; Not Available [facility] 4 01:00:34 Medications Name Sig Start Date Stop Date Status Note LastModified by Organization Details LastModified Time losartan 50 mg tablet TAKE 1 TABLET BY MOUTH ONCE DAILY active Not Available Not Available No t Available BD Luer-Kim Syringe 3 mL 25 x 5/8 USE TO INJECT VITAMIN B 12 INTRAMUS CULARLY ONCE A WEEK FOR 1 MONTH, THEN DECREASE TO USING ONCE A MONTH THEREAFT ER active Not Available Not Available No t Available alendrona te 70 mg tablet TAKE 1 TABLET BY MOUTH ONCE A WEEK active Not Available Not Available No t Available ciproflox acin 250 mg tablet TAKE 1 TABLET BY MOUTH EVERY 12 HOURS FOR 7 DAYS 11/16 completed Not Available Not Available Not Available sulfameth oxazole 800 mg-trimet hoprim 160 mg tablet TAKE 1 TABLET BY MOUTH EVERY 12 HOURS 11/16 completed Not Available Not Available Not Available gemfibroz il 600 mg tablet TAKE 1 TABLET BY MOUTH TWICE DAILY BEFORE MEALS active Not Available Not Available No t Available cyanocoba trina (vit B-12) 1,000 mcg/mL injection solution INJECT 1 ML INTRAMUS CULARLY ONCE EVERY 30 DAYS active Not Available Not Available No t Available fluocinol one 0.01 % topical solution active Medicati on ID: [id number] B rand Name: fluocino gerardo Sen d Method: E-Prescr ibed Sub s Allowed: subs OK Medic ationGen ericName : fluocino lone Not Available Not Available Not Available fluticaso ne propionat e 50 mcg/actua tion nasal spray,oni [facility] active Medicati on ID: [id number] B rand Name: fluticas one propiona te Send Method: E-Prescr ibed Sub s Allowed: subs OK Medic ationGen ericName : fluticas one propiona te Not Available Not Available Not Available ipratropi um bromide 21 mcg (0.03 %) nasal spray USE 2 SPRAY(S) IN EACH NOSTRIL TWICE DAILY active Not Available Not Available No t Available amoxicill in 875 mg-potass ium clavulana te 125 mg tablet TAKE 1 TABLET BY MOUTH EVERY 12 HOURS FOR 7 DAYS 11/16 completed Not Available Not Available Not Available ezetimibe 10 mg tablet TAKE 1 TABLET BY MOUTH ONCE DAILY active Not Available Not Available No t Available ciclopiro x 1 % shampoo USE TO SHAMPOO SCALP TOPICALL Y DAILY UNTIL IMPROVED , THEN SHAMPOO 2 TO 3 TIMES A WEEK FOR MIGUE HOANG active Not Available Not Available No t Available calcium active Not Available Not Avail able Not Available Nasacort 55 mcg nasal spray aerosol Hart[place] 2 spray into both nostrils once a day 2023 active Medicati on ID: [id number] D uration Value: 30 Brand Name: Nasacort Send Method: E-Prescr ibed Sub s Allowed: subs OK Medic ationGen ericName : Nasacort Not Available Not Available Not Available Otezla 30 mg tablet TAKE 1 TABLET BY MOUTH TWICE DAILY FOR PSORIASI S. active Not Available Not Available No t Available Vitamin B12 active Not Available Not Available Not Available Zoryve 0.3 % topical cream APPLY TOPICALL Y TO PSORIASI S IN AND BEHIND EARS ONCE DAILY active Not Available Not Available No t Available vit D3 50 mcg-vitam in K1 500 mcg-MK4 1,500 mcg-MK7 180 mcg capsule Take by oral route. active Not Available Not Available No t Available Vitals Date Recorded Body height Body mass index (BMI) Body weight Provider Name and Address Organization Details Last Updated DateTime 11/19/2024 167.64 cm 35.8 kg/m2 001746.51 g Diana Troncoso [address] [place] [address], [phone], [place] - [facility] 11/19/2024 10:04:57 Social History None recorded. Functional Status Question Answer Note LastModified by Organization D etails LastModified Time What is your level of alcohol consumption? None [email or web address] Information not available 11/19/2024 Mental Status None recorded. Family History Nothing Reported. Medical History Condition Response Anemia Y Arthritis Y Hypertension Y Gynecological HistoryNo gynecological history recorded. Obstetrics History GPAL:G 0 P 0 0 0 0 Past Encounters Encounter ID Performer Location Encounter Start Date Encounter Closed Date Diagnosis/Indication Diagnosis SNOMED-CT Code Diagnosis ICD10 Code Diagnosis IMO Codes Diagnosis Note [id number] BETO PHAN MD [facility] [address] [place] [address] 11/19/2024 09:32:28 11/19/2024 10:36:24 Oropharyngeal dysphagia 49010276 R13.12 8208 Posterior rhinorrhea 758 55220 J34.89 389931 Allergic rhinitis 507797 04 J30.89 Clearing t hroat - hawking 572732848 R09.89 349405 Health Concerns Section Related Observation LastModified by Organization Detai ls LastModified Time None Recorded Concern Status LastModified by Organization Details LastModified Time None Recorded Advance Directives Directive None Recorded Payers Insurance Date Sequence Insurance Name Policy Number Policy Freedman Covered Member ID Freedman Member ID Guarantor Name 11/19/2024 1 [facility] INDEMNITY PLAN (INDEMNITY) [id number] She Ken Labrecque [id number] She Ken Labrecque 11/19/2024 2 [facility] INDEMNITY PL[facility] (MEDICARE SUPPLEMENT) [id number] She Ken Labrecque [id number] She Ken Labrecque 11/19/2024 1 [place]IC[place]: [employer] She Ken Labrecque [id number] She Ken Labrecque Notes Date Note Type Note Provider Name and Address Organization Details Recorded Time 11/19/2024 text/html ROS as noted in the HPI 84-year-old female presents for evaluation of facial pressure and excessive mucus of her throat. Since having a COVID infection a few years ago she has been experiencing excessive mucus in her throat, cough, sneezing, clear nasal drainage, and sinus pressure. Her cough is productive of clear mucus. She has tried multiple oral antihistamines without improvement. She suspects she has some seasonal allergies, but she has not had allergy testing and has never tried any nasal sprays. She denies a history of GERD and asthma. She was a prior tobacco smoker and quit over 40 years ago. She has never been diagnosed for a sinus infection in the past. Patient does report difficulty swallowing meats, stating that she will occasionally cough pieces back up. She denies dysphagia to liquids, hemoptysis, weight loss, and heartburn. Patient was seen in 2023 for chronic cough. Per that visit note there was a CT scan of her sinuses ordered by her PCP at [facility] on 02/07/23. Report of the CT scan shows mild scattered paranasal sinus mucosal thickening. BETO LUNSFORD MD [address] [place] [address], [place], [id number], [facility] 11/19/2024 12:37:24 OBGyn Episode No OBEpisode recorded.
--- OUTSIDE RECORDS SUMMARY | 2024-12-25 20:44 | XMS_ITS | Encounter Summary ---
Author Organization [facility] Address [address] [place] [address] Phone Care Team Providers Care Dock Attendant Name Role Phone Royer Botello MD Primary Care Provider [phone] Sidney Campo MD Primary Care Provider [phone] Encounter Details Date Type Department Care Team (Late Contact Info) Description 01/23/2017 Ancillary Orders [address] [id number] Vickie Najera MD [address] [place] [address] Orthopedics & Sports Medicine, [place], [place] [phone] [email or web address] Left shoulder pain, unspecified chronicity Social History Tobacco Use Types Packs/Day Years [...] Description 02/17/2025 3:00 PM EST Office Visit [facility] Internal Medicine [address] [place], [place] [phone] Sidney Campo MD [address] [place], [place] [phone] juan Pending Results Name Type Priority Associated Diagnoses Date /Time FL Guidance Needle Placement Non-Spine Imaging Routine Left shoulder pain, unspecified chronicity 01/24/2017 9:29 AM EST Scheduled Orders Name Type Priority Associated Diagnoses Orde r Schedule FL Guidance Needle Placement Non-Spine Imaging Routine Left shoulder pain, unspecified chronicity Expected: 01/23/2017, Expires: 01/23/2018 documented as of this encounter Visit Diagnoses Diagnosis Left shoulder pain, unspecified chronicity documented in this encounter Care Teams Dock Attendant Relationship Specialty Start Date End Date Royer Botello MD [address] [place] [address] PCP - General 12/08/16 10/22/24 Sidney Campo MD [address] [place] [address] juan PCP - General Internal Medicine 10/23/24 documented as of this encounter Additional Source Comments The information contained in this document represents components of the legal health record. It is not the complete legal health record.[facility]
--- OUTSIDE RECORDS SUMMARY | 2024-12-25 20:44 | XMS_ITS | Encounter Summary ---
Author Organization [facility] Address [address] [place] [address] Phone Care Team Providers Care Mail Deliverer Name Role Phone Royer Botello MD Primary Care Provider [phone] Sidney Campo MD Primary Care Provider [phone] Encounter Details Date Type Department Care Team (Late Contact Info) Description 10/02/2019 Procedure Pass OR Admitting Dept - Virtual Department [address] [place] [address] Social History Tobacco Use Types Packs/Day Years Used Date Smoking Tobacco: Former Cigarettes 0.3 30 0 [birth year]/14/1946 - 05/14/1978 Smokeless Tobacco: Never Alcohol Use Standard Drinks/Week Comments Not Currently [...] Description 02/17/2025 3:00 PM EST Office Visit [facility] Internal Medicine [address] [place], [place] [phone] Sidney Campo MD 40 [place] [address] juan [email or web address] documented as of this encounter Visit Diagnoses Not on filedocumented in this encounter Care Teams Mail Deliverer Relationship Specialty Start Date End Date Royer Botello MD [address] [place] [address] PCP - General 12/08/16 10/22/24 Sidney Campo MD 40 [place] [address] juan [email or web address] PCP - General Internal Medicine 10/23/24 documented as of this encounter Additional Source Comments The information contained in this document represents components of the legal health record. It is not the complete legal health record.[facility]
--- OUTSIDE RECORDS SUMMARY | 2024-12-25 20:44 | XMS_ITS | Encounter Summary ---
Author Organization [facility] Address [address] [place] [address] Phone Care Team Providers Care Dye Stand Loader Name Role Phone Royer Botello MD Primary Care Provider [phone] Sidney Campo MD Primary Care Provider [phone] Encounter Details Date Type Department Care Team (Late Contact Info) Description 10/16/2017 Ancillary Orders [address] [phone] Vickie Najera MD [address] [place] [address] Orthopedics & Sports Medicine, [place], [place] [phone] [email or web address] Left shoulder pain, unspecified chronicity [...] Description 02/17/2025 3:00 PM EST Office Visit [facility] Internal Medicine [address] [place], [place] [phone] Sidney Campo MD 40 [place], [place] [phone] juan Pending Results Name Type Priority Associated Diagnoses Date /Time FL Guidance Needle Placement Non-Spine Imaging Routine Left shoulder pain, unspecified chronicity 10/17/2017 9:18 AM EDT Scheduled Orders Name Type Priority Associated Diagnoses Orde r Schedule FL Guidance Needle Placement Non-Spine Imaging Routine Left shoulder pain, unspecified chronicity Expected: 10/16/2017, Expires: 01/16/2019 documented as of this encounter Visit Diagnoses Diagnosis Left shoulder pain, unspecified chronicity documented in this encounter Care Teams Dye Stand Loader Relationship Specialty Start Date End Date Royer Botello MD [address] [place] [address] PCP - General 12/08/16 10/22/24 Sidney Campo MD [address] [place] [address] juan PCP - General Internal Medicine 10/23/24 documented as of this encounter Additional Source Comments The information contained in this document represents components of the legal health record. It is not the complete legal health record.[facility]
--- OUTSIDE RECORDS SUMMARY | 2024-12-25 20:44 | XMS_ITS | Encounter Summary ---
Author Organization [facility] Address [address] [facility] [address] [place] [address] Phone Care Team Providers Care Detasseling Crew Supervisor Name Role Phone Royer Botello MD Primary Care Provider [phone] Sidney Campo MD Primary Care Provider [phone] Encounter Details Date Type Department Care Team (Late st Contact Info) Description 05/06/2021 Procedure Pass OR Admitting Dept - Virtual Department [address] [place] [address] Social History Tobacco Use Types Packs/Day Years Used Date Smoking Tobacco: Former Cigarettes 0.3 30 0 05/14/1948 - 05/14/1978 Smokeless Tobacco: Never Comments:quit 40 years ago Alcohol Use Standard Drinks/Week Comments Never 0 (1 standard drink = 0.6 oz pur e alcohol) none in 3 years Comments No Sex and Gender Information Value Date Recorded Sex Assigned at Female 05/20/2020 3:54 PM EDT Legal Sex Female 10:38 PM EDT Gender Identity Female 05/20/2020 3:54 PM EDT Sexual Orientation Straight 05/20/2020 3: 54 PM EDT documented as of this encounter Functional Status * Calculated C-SSRS Risk Score (Lifetime/Recent) Answer Date of Assessment Author No Risk Indicated 05/06/2021 3:00 PM EDT Refugio Blue RN * [place] Suicide Severity Rating Scale (Screener/Recent Self-Report) Question Answer Date of Assessment Author 1. Wish to be (Past 1 Month) No 022 3:00 PM EDT Refugio Blue, WILIAN 2. Non-Specific Active Suici juan pablo Thoughts (Past 1 Month) No 05/06/2021 3:00 PM EDT Refugio Blue, WILIAN 6. Suicidal Behavior (Lifetime) No 2 3:00 PM EDT Refugio Blue RN documented as of this encounter Plan of Treatment Upcoming Encounters Date Type Department Care Team (Late st Contact Info) Description 02/17/2025 3:00 PM EST Office Visit [facility] Internal Medicine [address] [place] [address] Sidney Campo MD 40 [place] [address] [email or web address] documented as of this encounter Visit Diagnoses Not on filedocumented in this encounter Care Teams Detasseling Crew Supervisor Relationship Specialty Start Date End Date Royer Botello MD [address] [place] [address] PCP - General 12/08/16 10/22/24 Sidney Campo MD [address] [place] [address] juan [email or web address] PCP - General Internal Medicine 10/23/24 documented as of this encounter Additional Source Comments The information contained in this document represents components of the legal health record. It is not the complete legal health record.[facility]
--- OUTSIDE RECORDS SUMMARY | 2024-12-25 20:44 | XMS_ITS | Encounter Summary ---
Author Organization [facility] Address [address] [place] [address] [place] [address] Phone Care Team Providers Care Meter Tester Primary Name Role Phone Royer Botello MD Primary Care Provider [phone] Sidney Campo MD Primary Care Provider [phone] Encounter Details Date Type Department Care Team (Late Contact Info) Description 05/21/2018 Ancillary Orders [facility] Orthopedics & Sports Medicine [address] [place] [address] Vickie Najera MD [address] [place] [address] Orthopedics & Sports Medicine, [facility] [place] [address] [email or web address] Social History Tobacco Use Types Packs/Day Years Used Date Smoking Tobacco: Former Cigarettes Q uit: 05/14/1978 Smokeless Tobacco: Never Alcohol Use Standard Drinks/Week Comments Yes 1 (1 standard drink = 0.6 oz pur e alcohol) Comments Unknown Sex and Gender Information Value Date Recorded Sex Assigned at Female 05/20/2020 3:54 PM EDT Legal Sex Female 10:38 PM EDT Gender Identity Female 05/20/2020 3:54 PM EDT Sexual Orientation Straight 05/20/2020 3: 54 PM EDT documented as of this encounter Plan of Treatment Upcoming Encounters Date Type Department Care Team (Late Contact Info) Description 02/17/2025 3:00 PM EST Office Visit [facility] Internal Medicine [address] [place], [place] [phone] Sidney Campo MD 40 [place] [address] documented as of this encounter Visit Diagnoses Not on filedocumented in this encounter Care Teams Meter Tester Primary Relationship Specialty Start Date End Date Royer Botello MD [address] [place] [address] PCP - General 12/08/16 10/22/24 Sidney Campo MD [address] [place] [address] [email or web address] PCP - General Internal Medicine 10/23/24 documented as of this encounter Additional Source Comments The information contained in this document represents components of the legal health record. It is not the complete legal health record.[facility]
--- OUTSIDE RECORDS SUMMARY | 2024-12-25 20:44 | XMS_ITS | Encounter Summary ---
Author Organization [facility] Address [address] [place] [address] [place] [address] Phone Care Team Providers Care Flake Cutter Operator Name Role Phone Royer Botello MD Primary Care Provider [phone] Sidney Campo MD Primary Care Provider [phone] Encounter Details Date Type Department Care Team ([facility] Contact Info) Description 05/21/2018 Ancillary Orders [address] [address] Vickie Najera MD [address] [place] [address] Orthopedics & Sports Medicine, [place] [address] [email or web address] Left shoulder pain, unspecified chronicity Social [...] Description 02/17/2025 3:00 PM EST Office Visit [facility] Internal Medicine [address] [place] [address] Sidney Campo MD [address] [place] [address] [email or web address] Pending Results Name Type Priority Associated Diagnoses Date /Time FL Guidance Needle Placement Non-Spine Imaging Routine Left shoulder pain, unspecified chronicity 05/22/2018 7:44 AM EDT Scheduled Orders Name Type Priority Associated Diagnoses Orde r Schedule FL Guidance Needle Placement Non-Spine Imaging Routine Left shoulder pain, unspecified chronicity 1 Occurrences starting 05/21/2018 until 08/20/2018 documented as of this encounter Visit Diagnoses Diagnosis Left shoulder pain, unspecified chronicity documented in this encounter Care Teams Flake Cutter Operator Relationship Specialty Start Date End Date Royer Botello MD [address] [place] [address] PCP - General 12/08/16 10/22/24 Sidney Campo MD [address] [place] [address] [email or web address] PCP - General Internal Medicine 10/23/24 documented as of this encounter Additional Source Comments The information contained in this document represents components of the legal health record. It is not the complete legal health record.[facility]
--- OUTSIDE RECORDS SUMMARY | 2024-12-25 20:44 | XMS_ITS | Encounter Summary ---
Author Organization [facility] Address [address] [place] [address] Phone Care Team Providers Care Manager Social Media Name Role Phone Royer Botello MD Primary Care Provider [phone] Sidney Campo MD Primary Care Provider [phone] Encounter Details Date Type Department Care Team (Late Contact Info) Description 08/02/2021 Procedure Pass [facility], Ct Scan - [address] [address] Social History Tobacco Use Types Packs/Day Years Used Date Smoking Tobacco: Former Cigarettes 0.3 30 0 [birth year]/14/1946 - 05/14/1978 Smokeless Tobacco: Never Alcohol Use Standard Drinks/Week Comments Never 0 [...] Description 02/17/2025 3:00 PM EST Office Visit [facility] Internal Medicine [address] [place], [place] [phone] Sidney Campo MD 40 [place] [address] juan documented as of this encounter Visit Diagnoses Not on filedocumented in this encounter Care Teams Manager Social Media Relationship Specialty Start Date End Date Royer Botello MD [address] [place] [address] PCP - General 12/08/16 10/22/24 Sidney Campo MD [address] [place] [address] juan [email or web address] PCP - General Internal Medicine 10/23/24 documented as of this encounter Additional Source Comments The information contained in this document represents components of the legal health record. It is not the complete legal health record.[facility]
--- OUTSIDE RECORDS SUMMARY | 2024-12-25 20:44 | XMS_ITS | Encounter Summary ---
Author Organization [facility] Address [address] [place] [address] Phone Care Team Providers Care Grocery Stocker Name Role Phone Royer Botello MD Primary Care Provider [phone] Sidney Campo MD Primary Care Provider Encounter Details Date Type Department Care Team (Late Contact Info) Description 01/23/2017 Ancillary Orders [facility] Orthopedics & Sports Medicine [address] [place] [address] Vickie Najera MD [address] [place] [address] Orthopedics & Sports Medicine, [facility] [place], [place] [phone] Social History Tobacco Use Types Packs/Day Years [...] Upcoming Encounters Date Type Department Care Team ([facility] Contact Info) Description 02/17/2025 3:00 PM EST Office Visit [facility] Internal Medicine 40 [place], [place] [phone] Sidney Campo MD 40 [place], [place] [phone] juan documented as of this encounter Visit Diagnoses Not on filedocumented in this encounter Care Teams Grocery Stocker Relationship Specialty Start Date End Date Royer Botello MD [address] [place] [address] PCP - General 12/08/16 10/22/24 Sidney Campo MD 40 [place] [address] juan [email or web address] PCP - General Internal Medicine 10/23/24 documented as of this encounter Additional Source Comments The information contained in this document represents components of the legal health record. It is not the complete legal health record.[facility]
--- OUTSIDE RECORDS SUMMARY | 2024-12-25 20:44 | XMS_ITS | Encounter Summary ---
Author Organization [facility] Address [address] [facility] [address] [place] [address] Phone Care Team Providers Care Prison Librarian Name Role Phone Royer Botello MD Primary Care Provider [phone] Sidney Campo MD Primary Care Provider [phone] Encounter Details Date Type Department Care Team (Late st Contact Info) Description 12/09/2021 Procedure Pass OR Admitting Dept - Virtual Department [address] [place] [address] Social History Tobacco Use Types Packs/Day Years [...] Date of Assessment Author No Risk Indicated 12/09/2021 1:10 PM EDT Anamika Ma RN * [place] Suicide Severity Rating Scale (Screener/Recent Self-Report) Question Answer Date of Assessment Author 1. Wish to be (Past 1 Month) No 12/09/2021 1:10 PM EDT Anamika Ma RN 2. Non-Specific Active Suicidal Thoughts (Past 1 Month) No 12/09/2021 1:10 PM EDT Anamika Ma RN 6. Suicidal Behavior (Lifetime) No 12/09/2021 1:10 PM EDT Anamika Ma RN documented as of this encounter Plan of Treatment Upcoming Encounters Date Type Department Care Team (Late st Contact Info) Description 02/17/2025 3:00 PM EST Office Visit [facility] Internal Medicine [address] [place] [address] Sidney Campo MD [address] [place] [address] [email or web address] documented as of this encounter Visit Diagnoses Not on filedocumented in this encounter Care Teams Prison Librarian Relationship Specialty Start Date End Date Royer Botello MD [address] [place] [address] PCP - General 12/08/16 10/22/24 Sidney Campo MD [address] [place] [address] juan PCP - General Internal Medicine 10/23/24 documented as of this encounter Additional Source Comments The information contained in this document represents components of the legal health record. It is not the complete legal health record.[facility]
--- OUTSIDE RECORDS SUMMARY | 2024-12-25 20:44 | XMS_ITS | Clinical Summary ---
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 Active alendronate (FOSAMAX) 70 MG tablet Take 70 mg by mouth every 7 days. Active betamethasone, augmented, (DIPROLENE) 0.05 % ointment Apply 1 application topically daily as needed. Active fluticasone propionate (FLONASE) 50 mcg/actuation nasal spray 1 spray by Nasal route as needed. 01/22/20 21 Active apremilast (OTEZLA) 30 mg tabletIndicati ons:moderate to severe plaque psoriasis Take 30 mg by mouth daily. Indications: moderate to severe plaque psoriasis Active losartan (COZAAR) 50 MG tablet Take 50 mg by mouth daily. 07/21/19 22 Active ferrous sulfate 325 mg (65 mg tlingit & haida iron) tablet Take 325 mg by mouth 2 (two) times a day. Active docusate sodium (COLACE) 50 MG capsule Take by mouth 2 (two) times a day. Active triamcinolone acetonide 0.025 % cream 10/14/19 Active BD LUER-EPIFANIO SYRINGE 3 mL 25 x 5/8 Syrg USE TO INJECT VITAMIN B12 INTRAMUSCULARLY ONCE A WEEK FOR 1 MONTH AND THEN INCREASE TO USING ONCE A MONTH THEREAFTER 08/27/19 Active ketoconazole (NIZORAL) 2 % shampoo SHAMPOO SCALP TOPICALLY DAILY FOR FLARES, THEN SHAMPOO 2 TO 3 TIMES WEEKLY FOR MAINTENANCE. 10/14/19 Active clobetasol (TEMOVATE) 0.05 % external solution 10/16/19 Active ciclopirox (LOPROX) 1 % shampoo 10/22/19 Active docusate sodium (COLACE) 100 MG capsule Take 1 capsule (100 mg total) by mouth 2 (two) times a day. 20 capsule 12/11/19 Active Additional Information Patient not taking.Reported on 06/01/2022 traMADoL (ULTRAM) 50 mg tablet Take 1-2 tablets (50-100 mg total) by mouth every 8 (eight) hours as needed for pain (specific location in comments). 35 tablet 12/11/19 Active Additional Information Patient not taking.Reported on 06/01/2022 aspirin 325 MG EC tablet Take 1 tablet (325 mg total) by mouth daily for 14 days. 14 tablet 12/11/19 22 Active fluticasone propionate (CUTIVATE) 0.005 % ointment 50 mcg by Nasal route. 12/04/19 Active fluocinolone (SYNALAR) 0.01 % external solution 01/22/20 Active levoFLOXacin (LEVAQUIN) 500 MG tablet TAKE 1 TABLET BY MOUTH ONCE DAILY FOR 7 DAYS 01/20/20 Active guaiFENesin (MUCINEX) 1,200 mg Ta12 Take by mouth. A ctive loratadine (CLARITIN) 10 mg tablet Take 10 mg by mouth daily. Active gemfibroziL (LOPID) 600 MG tablet Take 1 tablet (600 mg total) by mouth 2 (two) times a day before meals. 60 tablet 4 10/09/19 Active cyanocobalamin (VITAMIN B-12) 1,000 mcg/mL injection Inject 1 mL (1,000 mcg total) into the muscle every 30 (thirty) days. 5 mL 10/09/19 25 Active syringe with needle 1 mL 25 gauge x 5/8 Syrg 1 each by Miscellaneous route every 30 (thirty) days. 50 each 10/09/19 25 Active syringe with needle 3 mL 25 x 5/8 Syrg 1 each by Miscellaneous route every 30 (thirty) days. 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 Medically managed on apremilast (Otezla) 30 mg PO daily and betamethasone (Diprolene) 0.05% ointment and calcipotriene 0.005% solution, applied topically as needed (rarely uses). Instructed to hold the apremilast for 1 week before surgery and may resume 2 weeks after surgery per Dr. Herrera. History of supraventricular tachycardia 10/08/19 Assessment & Plan (10/07/2021 6:06 PM EDT): Followed by Dr. Peter Lewis at [facility]. She has a history of arrhythmia/tachycardia/SVT, underwent ablation x 2 in 2019. She has had no recurrent palpitations, no exertional fatigue, no lightheadedness, no syncope, no chest pain or pressure. She will be seeing her facs teacher/Dr. Peter Lewis at [facility] on 10/26/21 for routine annual visit. Age-related osteoporosis wit hout current pathological fracture 10/07/2021 Assessment & Plan (10/07/2021 6:09 PM EDT): Medically managed on alendronate 70 mg PO every 7 days. Instructed to hold this medication on the morning of surgery. Anemia 10/07/2021 Assessment & Plan (10/07/2021 6:15 PM EDT): H/o anemia/required a blood transfusion following TKA surgery. Medically managed on ferrous sulfate 325mg (65 mg elemental iron) PO BID. Patient takes colace 50 mg PO BID due to side effect of constipation from the oral iron. Current CBC shows hemoglobin/hematocrit of 11.8/35.9. Seasonal allergic rhinitis 10/07/2021 Assessment & Plan (10/07/2021 6:16 PM EDT): Continue on fluticasone propionate (Flonase) 50 mcg/actuation nasal spray as needed perioperatively. Preop examination 04/28/2020 Assessment & Plan (10/07/2021 6:02 PM EDT): 81 [address] of [address] Herrera with planned right anatomic inverse total shoulder replacement on 12/09/21. Risk factor scores at the surgical optimization clinic are as follows. MARTINEZ cardiovascular risk score is 0.2% risk of myocardial infarction or cardiac arrest, intraoperatively or up to 30 day post-operatively. STOP BANG score shows 2 points indicating a low risk of sleep apnea. DASI score was 26.95 points, able to achieve at least 6.05 METS. NSQIP cardiovascular risk score was below average at 0.2% risk of cardiac complication, and RCRI score was 0.4% risk for cardiovascular event including myocardial infarction, pulmonary edema, arrhythmia, cardiac arrest or complete heart block. This reflects very low risk on the scale. Blood work from 09/28/21 shows a CBC with h/h 11.8/35.9, platelets 201, and BMP is unremarkable with a creatinine of 0.60 and eGFR of 91. EKG today shows normal sinus rhythm. There is no evidence of acute or prior ischemia. The patient can proceed to the intended procedure without further work-up. She will be seeing her facs teacher/Dr. Peter Lewis at [facility] on 10/26/21. She should have standard DVT and antibiotic prophylaxis. She has not tolerated oxycodone due to GI upset, and unable to take Aleve or ibuprofen with cause uncomfortable/jittery feelings. She is able to tolerate tramadol, Celebrex and acetaminophen without issue. Patient was instructed to hold all vitamins/supplements and Celebrex for 1 week before surgery. The patient has the following relative contraindications to same day discharge following joint replacement surgery: advanced age, 81 years. Assessment & Plan (04/28/2020 12:27 PM EST): This is a 80-year-old patient of Dr. Botello, with planned total right knee replacement by Dr. Meraz on 06/17. Her scores for risk related to surgery show a stop bang score of 2, low risk for sleep apnea. Her Martinez score is 0.2% risk of cardiac event perioperatively or in the first 30 days. Her RCRI score is congruent with this at 0.4% risk of cardiac event including arrhythmia/CHF/and ischemia. This is considered a very low risk score. Her NSQIP score for potential cardiac event is 0.1%. All of the risk scores on this scale are considered less than normal. Her EKG today shows sinus bradycardia without any findings of prior ischemia. She can proceed to surgery without any further intervention. She should have standard DVT and antibiotic prophylaxis. The patient was advised to stop her aspirin and any ahze-vji-bzlqjbg medications 1 week prior to surgery. The remainder of her medications she can take right up to surgery. Atenolol should be taken the morning of surgery. Postoperatively it should be noted that she did not tolerate oxycodone which gave her some significant GI issues. He has not tolerated NSAIDs as well. Tramadol or Dilaudid would be reasonable alternatives to start with. Hypertension 04/28/2020 Assessment & Plan (10/07/2021 6:08 PM EDT): BP 157/78. Patient medically managed on losartan (Cozaar) 50 mg PO daily. Instructed to hold this medication on the morning of surgery. Assessment & Plan (04/28/2020 12:27 PM EST): The patient is maintained on atenolol 25 mg twice daily. As above she should stay on this through the perioperative period. Her SVT has been treated with ablation. She will be seeing her facs teacher in the interim but I do not think that any further intervention is necessary prior to surgery. Hypercholesterolemia 04/28/2020 Assessment & Plan (10/07/2021 6:09 PM EDT): Medically managed on ezetimibe (Zetia) 10 mg PO daily and gemfibrozil (Lopid) 600 mg PO BID before meals. Instructed to hold both of these medications for 1 day prior to surgery. Assessment & Plan (04/28/2020 12:34 PM EST): The patient will continue her medications through the perioperative period. Resolved Problems Problem Noted Date Diagnosed Date Resolved Date S/P reverse total shoulder arthroplasty, left 05/07/19 22 10/07/2021 Status post total knee replacement, right 05/21/2020 10/07/2021 S/P total knee replacement, right 05/20/2020 10/07/2021 Encounter for preoperative s creening laboratory testing for COVID-19 virus 05/20/2020 S/P total knee arthroplasty, left 10/02/2019 04/28/2020 Primary osteoarthritis of right knee 02/12/2019 04/28/2020 Left knee pain 05/31/2018 04/14/2020 Right knee pain 05/04/2018 10/07/2021 Left shoulder pain 09/25/2017 Encounters Date Type Department Care Team Description 10/07/2024 Refill [facility] [address] [place] [address] Sidney Campo MD Medication Refill from Last 3 Months Immunizations Immunization Administration Dates Next Due Influenza High-Dose Quadrivalent Preservative Fr ee IM 12/10/2021 Family History Medical History Relation Comments Multiple sclerosis Brother 1 No Known Problems Brother 2 Asthma Daughter Heart attack Father Anxiety disorder Mother Dementia Sister 1 Colon cancer Sister 2 Arthritis Sister 3 Multiple sclerosis Sister 4 Allergies Son 1 Allergies Son 2 Relation Status Comments Brother 1 Brother 2 Alive Daughter Alive Father (Age 67) Mother (Age 85) Sister 1 Sister 2 Sister 3 Alive Sister 4 Alive Son 1 Alive Son 2 Alive Social History Tobacco Use Types Packs/Day Years Used Date Smoking Tobacco: Former Cigarettes 0.3 30 0 [birth year]/14/1948 - 05/14/1978 Smokeless Tobacco: Never Tobacco Cessation:Counseling Given: Not Answered Alcohol Use Standard Drinks/Week Comments Never 0 (1 standard drink = 0.6 oz pur e alcohol) none in 3 years Education Answer Date Recorded Are you interested in more education? Not on debi e 06/17/2022 Are you concerned about learning? Not on file 06/17/2022 No 06/17/2022 No 06/17/2022 Digital Access Answer Date Recorded No 07/18/2022 No 07/18/2022 Reliable internet access at home? Not on file 07/18/2022 Device with a working camera? Not on file Comments No Sex and Gender Information Value Date Recorded Sex Assigned at Female 05/20/2020 3:54 PM EDT Legal Sex Female 10:38 PM EDT Gender Identity Female 05/20/2020 3:54 PM EDT Sexual Orientation Straight 05/20/2020 3: 54 PM EDT Last Filed Vital Signs Vital Sign Reading Time Taken Comments Blood Pressure 116/67 12/10/2021 8:37 AM EDT Pulse 69 12/10/2021 8:37 AM EDT Temperature 37.3 C (99.2 F) 12/10/2021 8:37 AM EDT Respiratory Rate 18 12/10/2021 8:37 AM EDT Oxygen Saturation 95% 12/10/2021 8:37 AM EDT Inhaled Oxygen Concentration - - Weight 98 kg (216 lb) 05/09/2022 1:20 PM EDT Height 167.6 cm (5' 6 ) 05/09/2022 1:20 PM EDT Body Mass Index 34.86 05/09/2022 1:20 PM EDT Plan of Treatment Upcoming Encounters Date Type Department Care Team (Late st Contact Info) Description 02/17/2025 3:00 PM EST Office Visit [facility] Internal Medicine [address] [place] [address] Sidney Campo MD [address] [place] [address] juan [email or web address] Health Maintenance Due Date Last Done Comments BLOOD PRESSURE 1942 DEPRESSION SCREENING 1954 PNEUMOCOCCAL VACCINES (50+ years) (1 of 2 - PCV) 1961 OSTEOPOROSIS SCREENING INITIAL (ONE-TIME) 2007 Adult Td,Tdap Booster 10/08/2015 10/07/2005, 996 RSV VACCINE (1 - 1-dose 75+ series) 2017 COVID-19 VACCINE (3 - Moderna risk series) 05/28/2020 04/30/2020, 04/02/2020 CREATININE LEVEL 09/28/2022 09/28/2021, , 05/06/2021, Additional history exists POTASSIUM LEVEL 09/28/2022 09/28/2021, 04/20, 05/06/2021, Additional history exists INFLUENZA VACCINE (#1) 2024 , 10/15/2020, 11/26/2019, Additional history exists ZOSTER VACCINES Completed 08/30/2022, 05/24/2022 HEPATITIS A VACCINES Aged Out No long er eligible based on patient's age to complete this topic HIB VACCINES Aged Out No longer eligi ble based on patient's age to complete this topic MENINGOCOCCAL VACCINES (ACWY) Aged Out No longer eligible based on patient's age to complete this topic MENINGOCOCCAL VACCINES (B) Aged Out N o longer eligible based on patient's age to complete this topic Medical Devices Implanted Type Area Manager Clinical Applications Device Identifier Shelf Expiration Date Model / Serial / Lot Knee Insert 10xto 71 75mm Implant Bring Rashaun 05 - [id number] Implanted:Qty: 1 on 05/20/2020 by Andrea Meraz MD at [facility] Right: Knee [employer] 01/29/2023 [id number] / / [id number] Screw Bone 26x4.5mm Shoulder Glenoid Fixation Aequalis Titanium Multidirectional Reverse - [id number] Implanted:Qty: 1 on 05/06/2021 by Nick Herrera DO at [facility] Left: Shoulder [employer] [id number] / / Screw Bone 23x4.5mm Shoulder Glenoid Fixation Aequalis Titanium Multidirectional Reverse - [id number] Implanted:Qty: 1 on 05/06/2021 by Nick Herrera DO at [facility] Left: Shoulder [employer] [id number] / / Shoulder Post 25mm [id number] Baseplate Glenoid Humeral Aequalis Reversed Ii Standard - [id number] Implanted:Qty: 1 on 05/06/2021 by Nick Herrera DO at [facility] Left: Shoulder [employer] 12/29/2021 [id number] / [id number] / Shoulder Post 25mm [id number] Baseplate Glenoid Humeral Aequalis Reversed Ii Standard - [id number] Implanted:Qty: 1 on 12/09/2021 by Nick Herrera DO at [facility] Right: Acromial Process [employer] 12/09/2025 [id number] / [id number] / Screw Bone 26x4.5mm Shoulder Compression Aequalis Titanium Self Tapping Hemispherical Head - [id number] Implanted:Qty: 2 on 12/09/2021 by Nick Herrera DO at [facility] Right: Acromial Process [employer] [id number] / / Screw Bone 38x4.5mm Shoulder Glenoid Fixation Aequalis Titanium Multidirectional Reverse - [id number] Implanted:Qty: 1 on 12/09/2021 by Nick Herrera DO at [facility] Right: Acromial Process [employer] [id number] / / Screw Bone 4.5x32mm Shoulder Glenoid Locking Multi Directional Aequalis Reversed Reverse 08 - [id number] Implanted:Qty: 1 on 12/09/2021 by Nick Herrera DO at [facility] Right: Acromial Process [employer] [id number] / / Shoulder Implant [id number] Sphere Glenoid Aequalis Centered - [id number] Implanted:Qty: 1 on 12/09/2021 by Nick Herrera DO at [facility] Right: Acromial Process [employer] 07/27/2026 [id number] / / [id number] Peg 34x8.5mm Button Patella Knee Vanguard Uhmwpe 3 Series A Standard - [id number] Implanted:Qty: 1 on 10/02/2019 by Andrea Meraz MD at [facility] STANDARD Left: Knee [employer] 07/16/2024 [id number] / / [id number] Peg 34x8.5mm Button Patella Knee Vanguard Uhmwpe 3 Series A Standard - [id number] Implanted:Qty: 1 on 05/20/2020 by Andrea Meraz MD at [facility] STANDARD Right: Knee [employer] 03/24/2025 [id number] / / [id number] Left Shoulder Right Knee Left Knee Cement Bone Biomet Standard R 1x40 Us - [id number] Implanted:Qty: 1 on 10/02/2019 by Andrea Meraz MD at [facility] Left: Knee ARLNY / DIV OF [employer] 11/20/2023 [id number] / / [id number] Box Component 65.0mm Femoral Knee Vanguard Interlok Jean Posterior Stabilized Open Cemented Left - [id number] Implanted:Qty: 1 on 10/02/2019 by Andrea Meraz MD at [facility] Left: Knee [employer] 05/29/2029 [id number] / / [id number] Knee Tray 71mm Plate Bone Primary Vanguard Jean I Beam Revision Interlock Cemented - [id number] Implanted:Qty: 1 on 10/02/2019 by Andrea Meraz MD at [facility] Left: Knee [employer] 04/21/2029 [id number] / / [id number] Knee Insert 71 [id number] Bearing Vanguard Stabilized - [id number] Implanted:Qty: 1 on 10/02/2019 by Andrea Meraz MD at [facility] Left: Knee [employer] 02/09/2024 [id number] / / [id number] Cement Bone Biomet Standard R 1x40 Us - [id number] Implanted:Qty: 1 on 05/20/2020 by Andrea Meraz MD at [facility] Right: Knee ARLYN / DIV OF [employer] 06/19/2024 [id number] / / [id number] Box Component 67.5mm Femoral Knee Vanguard Interlok Jean Posterior Stabilized Open Cemented Right - [id number] Implanted:Qty: 1 on 05/20/2020 by Andrea Meraz MD at [facility] Right: Knee [employer] 01/27/2030 [id number] / / [id number] Knee Tray 71mm Plate Bone Primary Vanguard Jean I Beam Revision Interlock Cemented - [id number] Implanted:Qty: 1 on 05/20/2020 by Andrea Meraz MD at [facility] Right: Knee [employer] 02/07/2030 [id number] / / [id number] Shoulder Insert 12.5deg 39mm Flex Plus 6mm Aequalis Ascend Reversed - [id number] Implanted:Qty: 1 on 05/06/2021 by Nick Herrera DO at [facility] Left: Shoulder [employer] 12/25/2024 [id number] / [id number] / Tray 1.5mm 0.0 Reversed Shoulder Ascend Flex Offset Plus - [id number] Implanted:Qty: 1 on 05/06/2021 by Nick Herrera DO at [facility] Left: Shoulder [employer] 12/11/2025 [id number] / [id number] / Humerus Stem Size 5 Humeral Shoulder Aequalis Pure Titanium Coat Ascend Flexible Standard Anatomic B - [id number] Implanted:Qty: 1 on 05/06/2021 by Nick Herrera DO at [facility] Left: Shoulder [employer] 07/13/2023 [id number] / [id number] / Centered Glenoid Sphere Implanted:Qty: 1 on 05/06/2021 by Nick Herrera DO at [facility] Left: Shoulder [employer] 02/27/2025 [id number] / [id number] / Screw Bone 4.5x18mm Shoulder Fixation Hemispherical Head Non Locking Aequalis Reverse 08 - [id number] Implanted:Qty: 1 on 05/06/2021 by Nick Herrera DO at [facility] Left: Shoulder [employer] [id number] / / Screw Bone 29x4.5mm Shoulder Compression Aequalis Titanium Self Tapping Hemispherical Head - [id number] Implanted:Qty: 1 on 05/06/2021 by Nick Herrera DO at [facility] Left: Shoulder [employer] [id number] / / Humerus Stem Size 5 Humeral Shoulder Aequalis Pure Titanium Coat Ascend Flexible Standard Anatomic B - [id number] Implanted:Qty: 1 on 12/09/2021 by Nick Herrera DO at [facility] Right: Acromial Process [employer] 10/19/2025 [id number] / [id number] / Tray 1.5mm 0.0 Reversed Shoulder Ascend Flex Offset Plus - [id number] Implanted:Qty: 1 on 12/09/2021 by Nick Herrera DO at [facility] Right: Acromial Process [employer] 04/06/2026 [id number] / [id number] / Humeral Insert 12.5mm 36 Plus 9.0 Aequalis Ascend Flexible Reversed Angle B - [id number] Implanted:Qty: 1 on 12/09/2021 by Nick Herrera DO at [facility] Right: Acromial Process [employer] 07/20/2026 [id number] / [id number] / Procedures Procedure Name Priority Date/Time Associated Diagnosis Comments BASIC METABOLIC PANEL (BMP) Routine 09/28/2021 11:51 AM EDT Pre-op testing from Last 3 Months or Most Recently Relevant to Health Maintenance Results * (ABNORMAL) Basic metabolic panel (09/28/2021 11:51 AM EDT) SODIUM 139 133 - 146 mmol/L [facility] CHLORIDE 104 96 - 108 mmol/L [facility] POTASSIUM 4.4 3.3 - 5.1 mmol/L [facility] CO2 23 21 - 35 mmol/L [facility] BUN 17 6 - 19 mg/dL [facility] CREATININE 0.60 0.5 - 1.5 mg/dL [facility] GLUCOSE 101(H) 70 - 99 mg/dL [facility] CALCIUM 10.1 8.4 - 10.3 mg/dL [facility] EGFR 91 >59 mL/min/1.7 3m2 [facility] Comment:Estimated glomerular filtration rate calculated using the CKD-EPI refit equation. ANION GAP 16 10 - 20 mmol/L [facility] Blood 09/28/2021 11:5 1 AM EDT 09/28/2021 11:57 AM EDT Casey Lynch PA-C LAB BLOOD BKR ORDERABL ES Final Result [address] [id number] from Last 3 Months or Most Recently Relevant to Health Maintenance Insurance MEDICARE PART A & B [employer] MEDICARE SUPPLEMENT MEDICARE PART A & B [employer] MEDICARE SUPPLEMENT MEDICARE PART A & B [facility] MEDICARE SUPPLEMENT MEDICARE PART A & B [employer] EX[employer]ENSION MEDICARE SUPPLEMENT MEDICARE PART A & B [employer] EXTENSION MEDICARE SUPPLEMENT MEDICARE PART A & B [facility] MEDICARE SUPPLEMENT MEDICARE PART A & B [facility] MEDIC[facility] SUPPLEMENT MEDICARE PART A & B [employer] MEDICARE SUPPLEMENT MEDICARE PART A & [facility] SU[facility] [employer] [place] [id number] Advance Directives For more information, please contact: [phone] (9AM - 5PM [facility], Monday-Monday) Documents on File Type Date Recorded 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 Healthcare 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 10/07/2019 10:57 AM * Full Code (Latest Code Status on File) Date Activated Date Inactivated Comments 05/20/2020 8:10 AM Question Answer Comments Code Status Confirmed With: Patient * Full Code (Presumed) Date Activated Date Inactivated Comments 10/02/2019 7:06 PM 05/20/2020 8:10 AM * Full Code (Presumed) Date Activated Date Inactivated Comments 10/02/2019 10:55 AM 10/02/2019 7:06 PM Care Teams Red Leader Relationship Specialty Start Date End Date Sidney Campo MD [address] [place] [address] juan [email or web address] PCP - General Internal Medicine 10/23/24 Additional Source Comments The information contained in this document represents components of the legal health record. It is not the complete legal health record.[facility]
--- OUTSIDE RECORDS SUMMARY | 2024-12-25 20:45 | XMS_ITS | Encounter Summary ---
Author Organization [facility] Address [address] [place] [phone] Phone Care Team Providers Care Metal Grinder Name Role Phone Royer Botello MD Primary Care Provider [phone] Sidney Campo MD Primary Care Provider [phone] Encounter Details Date Type Department Care Team (Late Contact Info) Description 07/10/2017 Ancillary Orders [address] [id number] Vickie Najera MD [address] [place] [address] Orthopedics & Sports Medicine, [place], [place] [phone] [email or web address] Left shoulder pain, unspecified chronicity [...] Description 02/17/2025 3:00 PM EST Office Visit [facility] Internal Medicine [address], [place] [phone] Sidney Campo MD [address] [place], [place] [phone] juan Pending Results Name Type Priority Associated Diagnoses Date /Time FL Guidance Needle Placement Non-Spine Imaging Routine Left shoulder pain, unspecified chronicity 07/11/2017 8:05 AM EDT Scheduled Orders Name Type Priority Associated Diagnoses Orde r Schedule FL Guidance Needle Placement Non-Spine Imaging Routine Left shoulder pain, unspecified chronicity Expected: 07/10/2017, Expires: 07/10/2018 documented as of this encounter Visit Diagnoses Diagnosis Left shoulder pain, unspecified chronicity documented in this encounter Care Teams Metal Grinder Relationship Specialty Start Date End Date Royer Botello MD [address] [place] [id number] PCP - General 12/08/16 10/22/24 Sidney Campo MD [address] [place] [phone] juan PCP - General Internal Medicine 10/23/24 documented as of this encounter Additional Source Comments The information contained in this document represents components of the legal health record. It is not the complete legal health record.[facility]
--- OUTSIDE RECORDS SUMMARY | 2024-12-25 20:45 | XMS_ITS | Encounter Summary ---
Author Organization [facility] Address [address] [place] [phone] Phone Care Team Providers Care Receiving Teller Name Role Phone Royer Botello MD Primary Care Provider [phone] Sidney Campo MD Primary Care Provider [phone] Encounter Details Date Type Department Care Team (Late Contact Info) Description 07/10/2017 Ancillary Orders [facility] Orthopedics & Sports Medicine [address] [place] [id number] Vickie Najera MD [address] [place] [address] Orthopedics & Sports Medicine, [facility]. [place], [place] [id number] Social History Tobacco Use Types Packs/Day Years [...] Description 02/17/2025 3:00 PM EST Office Visit [facility] Internal Medicine [address] [place], [place] [phone] Sidney Campo MD [address], [place] [phone] juan documented as of this encounter Visit Diagnoses Not on filedocumented in this encounter Care Teams Receiving Teller Relationship Specialty Start Date End Date Royer Botello MD [address] [place] [phone] PCP - General 12/08/16 10/22/24 Sidney Campo MD [address] [place] [address] juan [email or web address] PCP - General Internal Medicine 10/23/24 documented as of this encounter Additional Source Comments The information contained in this document represents components of the legal health record. It is not the complete legal health record.[facility]
[2024-12-25 22:07] VITALS: BP 159/82; PULSE 78; RESP 18; O2SAT 95
--- NOTE | 2024-12-25 23:42 | PC.NURSE ---
pt medicated per mar, tolerated whole well with water. pt speaking in full clear sentences, vss and maintaining airway
--- NOTE | 2024-12-25 23:43 | ED.ALLEREA ---
HPI - Allergic Reaction General Chief complaint: Allergic Reaction Stated complaint: ITCHINESS Time Seen by Provider: 12/25/24 23:30 History of Present Illness ED Provider: Dieudonne Ho MD HPI narrative: 84-year-old female presented after feeling itchiness noticed hives felt itching in her mouth she took p.o. Benadryl at 19:30. Related Data Home Medications ?Medication ?Instructions ?Recorded ?Confirmed alendronate 70 mg tablet 70 mg PO QWEEK 11/25/19 11/24/23 ezetimibe 10 mg tablet 10 mg PO DAILY 11/25/19 11/24/23 fluticasone propionate 50 2 spray intranasal DAILY 11/25/19 11/24/23 mcg/actuation nasal spray,suspension gemfibrozil 600 mg tablet 600 mg PO BID 11/25/19 11/24/23 calcipotriene 0.005 % scalp ml topical BID 04/28/20 11/24/23 solution clobetasol 0.05 % topical gel g topical BID 04/28/20 11/24/23 calcium 600 mg (as 1 tab PO DAILY 11/03/20 11/24/23 carbonate)-vitamin D3 5 mcg (200 unit) tablet celecoxib 200 mg capsule 200 mg PO BID 11/03/20 11/24/23 apremilast 30 mg tablet (Otezla) 30 mg PO BID 10/26/21 11/24/23 ferrous sulfate 325 mg (65 mg 325 mg PO DAILY 10/26/21 11/24/23 iron) tablet losartan 50 mg tablet 50 mg PO DAILY 10/26/21 11/24/23 Allergies Allergy/AdvReac Type Severity Reaction Status Date / Time [id number] Reductase Allergy Unknown PSEUDO Verified 12/25/24 20:24 Inhibitor ([id number] ARHTITIS,ENZYMES REDUCTASE INHIBITOR) sulindac Allergy Itching Verified 12/25/24 20:24 ibuprofen (From ADVIL) AdvReac Unknown AGITATED Verified 12/25/24 20:24 PMFSH Past Medical History Medical History NSTEMI (non-ST elevated myocardial infarction) SVT (supraventricular tachycardia) Urinary incontinence Osteoporosis Sinus tachycardia Hyperlipidemia Hypertension Anemia Surgical History Total knee replacement status Hx of arthroscopic knee surgery Family History Family History Other CAD (coronary artery disease) Social History Social History Household Members: None Housing: House Do you presently have visiting nurse or other home services: No Alcohol intake: never Smoked in Last 30 Days: No Use of substances other than those prescribed or required for medical reasons: No Advance Directives: No Advance Directives Information Provided: Yes service: No Current occupational status: retired Physical Exam ED Exam Exam: EXAM: Gen: Alert, awake, well appearing, well hydrated. Head: Atraumatic Eyes: Anicteric, Normal conjunctiva. ENT: Moist mucosa, no pallor. ?Clear patent oropharynx no objective evidence of lingual oropharyngeal or labial edema clear voice no stridor Neck: Supple. Skin: ?No observable rash or bruising on exposed or examined skin. No urticaria specifically Respiratory: Breathing comfortably, No distress.Clear to auscultation bilaterally, symmetric chest expansion, No wheeze, rales, ronchi. Cardiovascular: Regular rate and rhythm. No murmurs or rub. Well perfused periphery, warm extremities. No edema. ? Abdominal: No focal tenderness. Soft, no objective distension. No palpable masses or obvious organomegaly. ?No guarding, no rebound tenderness or other peritoneal findings. : No flank tenderness. Neuro: Alert. Gross movement of all extremities intact. ? Psych: Calm. Cooperative. MSK: No grossly visible deformity. Vital signs: See flowsheet Vital Signs: Vital Signs - 24 hr 12/25/24 20:19 12/25/24 22:07 Temperature 98.4 F Pulse Rate 88 78 Respiratory Rate 20 18 Blood Pressure 171/88 H 159/82 H Pulse Oximetry 97 95 Oxygen Delivery Method Room Air Room Air BMI result Body Mass Index 36.4 Medications Administered Discontinued Medications Generic Name Dose Route Start Last Admin Trade Name Freq PRN Reason Stop Dose Admin Diphenhydramine HCl 25 mg 12/25/24 22:45 12/25/24 23:22 Diphenhydramine Hcl 25 Mg Capsule PO 12/25/24 22:46 25 mg ONCE ONE Administration Prednisone 40 mg 12/25/24 22:45 12/25/24 23:22 Prednisone 20 Mg Tablet PO 12/25/24 22:46 40 mg ONCE ONE Administration Medical Decision Making Medical Decision Making MDM Narrative: Medical Decision Makin-year-old female with transient urticaria. Possible food exposure no previous anaphylaxis. Benadryl at home with complete resolution of symptoms. No clinical suggestion of angioedema. Offered a single dose prednisone antihistamine here. Counseled and reassured. Strict precautions provided. Preliminary Favored Differential Diagnosis: Contact dermatitis, urticaria, mast cell activation, allergic reaction among additional considered etiologies Testing Interpreted Independently: ?See below for details Radiology or Lab testing Results Reviewed: ?See below for details Consults: ?See below for details Independent Historians/External Chart Reviews: ?See below for details Social Determinants of Health Impacting MDM/Planning: ?See below for details Discharge Plan Discharge Clinical Impression: Urticaria Patient Disposition: Home, Self-Care Instructions: Urticaria (ED) Additional Instructions: By the time he came to the emergency department you had no rash or other signs objectively of allergic reaction. As we discussed if you have recurrence of symptoms that you had you can take 50 mg p.o. Benadryl and return to the emergency department as needed. Regular PCP follow up, continue taking your on medications Prescriptions: No Action alendronate 70 mg tablet 70 mg PO QWEEK gemfibrozil 600 mg tablet 600 mg PO BID fluticasone propionate 50 mcg/actuation spray,suspension 2 spray intranasal DAILY ezetimibe 10 mg tablet 10 mg PO DAILY calcium carbonate-vitamin D3 600 mg(1,500mg) -200 unit tablet 1 tab PO DAILY celecoxib 200 mg capsule 200 mg PO BID Otezla 30 mg tablet 30 mg PO BID losartan 50 mg tablet 50 mg PO DAILY ferrous sulfate 325 mg (65 mg iron) tablet 325 mg PO DAILY clobetasol 0.05 % gel topical BID calcipotriene 0.005 % solution topical BID Interventions: ED Discharge Assessment Last Done: 12/26/24 02:11 Discharge Date/Time: 12/26/24 02:12 Print Language: Danish
[2024-12-26 02:11] VITALS: BP 159/77; PULSE 72; RESP 16; TEMP 36.6; O2SAT 95
== END 2024-12-26 02:12 | disposition home or self-care (01) ==
PROVIDERS: Emergency Provider Emergency Medicine
DX: L50.9 Urticaria, unspecified (principal); L29.9 Pruritus, unspecified; I10 Essential (primary) hypertension; E78.5 Hyperlipidemia, unspecified; Z79.899 Other long term (current) drug therapy
CPT/HCPCS: 99283; 99284